=== PATIENT | female | born 1940 | race Caucasian/White ===

== ENCOUNTER 2020-01-29 10:16 | Emergency (ER) | payer MEDICARE, BC, SELFPAY ==
--- NOTE | 2020-01-29 10:32 | ED.FEMALEGU ---
HPI - Female Genitourinary General Chief complaint: Urogenital-Female Stated complaint: pos uti Time Seen by Provider: 01/29/20 11:03 Source: patient and RN notes reviewed Mode of arrival: ambulatory Limitations: no limitations History of Present Illness HPI Narrative: 79-year-old female who presents to [facility] with complaints of frequency of urination with dribbling and burning. Patient states she first noted symptoms on Saturday has not taken anything [id number]. Patient states that she usually gets a couple of URI infections yearly and has had bladder sling surgery in 2009. Patient denies any nausea or vomiting or any fevers, chills or sweats, denies any acute abdominal discomfort. Patient does admit to pressure feeling in perineum with urination, rates pain 2/10 as ache. MD elicited complaint: dysuria, UTI and other (perineum pressure) Pertinent past history: other (usually a couple UTI's yearly) Onset (ago): day(s) (2) Location of symptoms: perineum (pressure/ache) Severity: mild Female Urogenital Radiation: Non-Radiating Severity scale (1-10): 2 (ache) Quality of pain: burning and aching Consistency: constant Vaginal discharge: none Vaginal bleeding: none Urinary symptoms: Dysuria, Urgency and Frequency Exacerbating factors: urination Relieving factors: none Associated symptoms: denies other symptoms Treatment prior to arrival: none Possible : postmenopausal Related Data Allergies Allergy/AdvReac Type Severity Reaction Status Date / Time codeine Allergy Unknown Nausea and Verified 01/29/20 10:36 Vomiting Review of Systems Review of Systems: Narrative: CONSTITUTIONAL: Denies fever, chills, or sweats. EYES: Denies visual changes, redness, or discharge. ENT: Denies rhinorrhea, congestion, sore throat, or otalgia. CARDIOVASCULAR: Denies chest pain, palpitations, or edema. RESPIRATORY: Denies cough or dyspnea. GASTROINTESTINAL: Denies abdominal pain, nausea, vomiting, or diarrhea. GENITOURINARY: Positive dysuria denies any visual hematuria, reports perineal pressure and urinary frequency SKIN: Denies rash or itching. MUSCULOSKELETAL: Denies back pain, joint pain, or myalgia. NEUROLOGIC: Denies headache, numbness, or weakness. PSYCHIATRIC: Denies anxiety or depression. All systems reviewed & are unremarkable except as noted in HPI and below PMFSH Past Medical History Medical History (Updated 01/29/20 @ 11:29 by Mae Taveras NP) Arthritis GERD (gastroesophageal reflux disease) Hyperlipidemia Surgical History Surgical History History of knee replacement procedure of right knee History of suburethral sling procedure History of tonsillectomy and adenoidectomy History of tubal ligation Hx of spinal fusion Family History Family History (Updated 01/29/20 @ 11:29 by Mae Taveras NP) Father Heart disease Mother Hypertension Social History Social History Smoking status: Never smoker Second hand tobacco smoke exposure: No Alcohol intake: current Substance use: never Substance use type: does not use Gender identity (if verbalized by the patient): Female Comments At time of signature, agree with nursing past medical, surgical, social and family history. There is no relevant family history pertinent to the presenting complaint Exam Narrative: Exam Narrative: GENERAL: Well-appearing, well-nourished, and in no acute distress. HEAD: Normocephalic, atraumatic. EYES: PERRLA and EOMI. ENT: Nares clear, no rhinorrhea or epistaxis. Mucous membranes moist. NECK: Supple. CHEST: Clear to auscultation. No respiratory distress.SAO2 97% on room air HEART: Regular rate and rhythm. No murmur heard. Normal peripheral pulses. ABDOMEN: Soft, nontender, nondistended, normal active bowel sounds.Reports perineal pressure, burning and frequency of urination EXTREMITIES: Normal ra
[2020-01-29 10:41] VITALS: BP 114/59; PULSE 73; RESP 20; TEMP 36.9; O2SAT 97
== END 2020-01-29 11:26 | disposition home or self-care (01) ==
PROVIDERS: Emergency Provider Registered Nurse; PCP Family Medicine
DX: N39.0 Urinary tract infection, site not specified (principal); M19.90 Unspecified osteoarthritis, unspecified site; K21.9 Gastro-esophageal reflux disease without esophagitis; E78.5 Hyperlipidemia, unspecified; Z96.653 Presence of artificial knee joint, bilateral
CPT/HCPCS: 81003; 87077; 87086; 87088; 87186; 99213; G0463

== ENCOUNTER 2020-04-02 10:08 | Emergency (ER) | payer MEDICARE, BC, SELFPAY ==
--- NOTE | 2020-04-02 10:13 | ED.GENADULT ---
HPI - General Adult General Chief complaint: Urogenital-Female Stated complaint: uti Time Seen by Provider: 04/02/20 10:09 Source: patient Mode of arrival: ambulatory Limitations: no limitations History of Present Illness HPI narrative: 79 y/o female. PMH Includes GERD, HLD. Presents to UC clinic today with acute complaints of urinary frequency, dysuria, and burning when she voids for past 48 hours. She reports history of UTI, and this feels similar to her urinary tract infections historically. No fever, chills. No abdominal pain, flank pain, or N/V. No hematuria. This client is without additional acute c/o upon PE. Related Data Allergies Allergy/AdvReac Type Severity Reaction Status Date / Time codeine Allergy Unknown Nausea and Verified 01/29/20 10:36 Vomiting Review of Systems Review of Systems: Narrative: CONSTITUTIONAL: Denies fever, chills, sweats. EYES: Denies visual changes, redness, discharge. ENT: Denies rhinorrhea, congestion, sore throat, otalgia. CARDIOVASCULAR: Denies chest pain, palpitations, edema. RESPIRATORY: Denies dyspnea, wheezing, cough GASTROINTESTINAL: Denies abdominal pain, nausea, vomiting, diarrhea. GENITOURINARY: Positive Urinary frequency, dysuria. Denies hematuria, abnormal discharge SKIN: Denies rash or itching. MUSCULOSKELETAL: Denies acute back pain, joint pain, or myalgia. NEUROLOGIC: Denies numbness, or focal weakness. PSYCHIATRIC: Denies anxiety or depression. Constitutional: Constitutional: Reports as per [facility] Past Medical History Medical History Arthritis GERD (gastroesophageal reflux disease) Hyperlipidemia Surgical History Surgical History History of knee replacement procedure of right knee History of suburethral sling procedure History of tonsillectomy and adenoidectomy History of tubal ligation Hx of spinal fusion Family History Family History Father Heart disease Mother Hypertension Social History Social History Smoking status: Never smoker Second hand tobacco smoke exposure: No Alcohol intake: current Substance use: never Substance use type: does not use Gender identity (if verbalized by the patient): Female Exam Narrative: Exam Narrative: GENERAL: This is a well-nourished, well-developed patient, in no apparent distress. HEAD: normocephalic, atraumatic. EYES: PERRL. Sclera clear/white. Vision is grossly intact. EARS: External ears normal, auditory canals clear and without drainage, TMs normal without perforation. Hearing grossly intact. NOSE: External nose normal with no obvious nasal discharge, nares without redness, no rhinorrhea. THROAT: Mucous membranes moist, posterior pharynx clear. NECK: Neck supple, non-tender without lymphadenopathy, masses or thyromegaly. CARDIOVASCULAR: Regular rate and rhythm without murmurs, gallops, or rubs. RESPIRATORY: Clear to auscultation. Breath sounds equal bilaterally. No wheezes, rales, or rhonchi. GASTROINTESTINAL: Abdomen soft, non-tender, nondistended. Bowel sounds are active. No hepato-splenomegaly, or palpable masses. No guarding. SKIN: warm, intact with no suspicious lesions or rash, good texture and turgor. NEURO: awake, alert, and oriented to person, place and time. There were no obvious focal neurologic abnormalities. Steady gait EXTREMITIES: Normal range of motion. No edema. No calf tenderness. Negative Homans sign bilaterally. BACK: Nontender without deformity or crepitance. No flank tenderness. [place] Coma Scale Eye Opening: Spontaneous 4 [place] Coma Scale Motor: Obeys Commands 6 [place] Coma Scale Verbal: Oriented 5 Const: General: no acute distress Orientation/consciousness: patient oriented x3 Course Course Emergency Course: Urine Dipstick for scott
[2020-04-02 10:18] VITALS: BP 124/93; PULSE 77; RESP 20; TEMP 36.4; O2SAT 99
== END 2020-04-02 10:31 | disposition home or self-care (01) ==
PROVIDERS: Emergency Provider Nurse Practitioner Adult Health; PCP Family Medicine
DX: N39.0 Urinary tract infection, site not specified (principal); M19.90 Unspecified osteoarthritis, unspecified site; K21.9 Gastro-esophageal reflux disease without esophagitis; E78.5 Hyperlipidemia, unspecified
CPT/HCPCS: 81003; 87086; 99213; G0463

== ENCOUNTER 2020-07-06 14:02 | Outpatient (CLI) | payer MEDICARE, BC, SELFPAY ==
--- NOTE | ~2020-07-06 | MM_ITS ---
EXAMINATION: MM screening fam BI w zuleima HISTORY: Screening TECHNIQUE: Craniocaudal and mediolateral oblique 3-D tomosynthesis images were obtained and synthetic 2-D images were generated. CAD analysis was submitted and interpreted. COMPARISON: Comparison to multiple prior studies sequentially, with oldest reviewed study dated 08/2010. BREAST PARENCHYMAL COMPOSITION: There are scattered areas of fibroglandular density. FINDINGS: There is no evidence of suspicious mass, calcification, or architectural distortion to sugg est malignancy in either breast. There has been no suspicious interval change. IMPRESSION: 1. No mammographic evidence of malignancy. 2. Recommend routine screening mammography in one year. BI-RADS Category 1: Negative Reviewed, dictated and finalized at location A. [facility]WRIT[facility]
== END 2020-07-06 14:03 | disposition home or self-care (01) ==
LOC: ANHIMG 14:06
PROVIDERS: PCP Physician Assistant; Visit Provider Physician Assistant
DX: Z12.31 Encounter for screening mammogram for malignant neoplasm of breast (principal)
CPT/HCPCS: 77063; 77067

== ENCOUNTER 2020-07-19 12:56 | Outpatient (CLI) | payer MEDICARE, BC, SELFPAY ==
--- NOTE | ~2020-07-19 | DEXA_ITS ---
Bone Density Report Name: Susan Rhodes Age: 79 Sex: Female Ethnicity: White Date of : 1940 Indication: postmenopausal; Referring Provider: Oneal Lora Study: Bone densitometry was performed. Exam Date: July 19, 2020 Accession number: [id number] Bone Density: Region BMD T-score Z-score Classification AP Spine (L1-L4) 0.928 -1.1 1.5 Osteopenia Femoral Neck (Left) 0.775 -0.7 1.5 Normal Total Hip (Left) 0.830 -0.9 1.0 Normal Total Hip Bilateral Avg 0.814 -1.0 0.8 Osteopenia Femoral Neck (Right) 0.742 -1.0 1.2 Normal Total Hip (Right) 0.798 -1.2 0.7 Osteopenia World Health Organization criteria for BMD impression classify patients as: Normal (T-score at or above -1.0), Osteopenia (T-score between -1.0 and -2.5), or Osteoporosis (T-score at or below -2.5). 10-year Fracture Risk(1): Major Osteoporotic Fracture 11% Hip Fracture 1.9% Reported Risk Factors: [place] (), Neck BMD=0.742, BMI=24.2 (1) FRAX(R) Version 3.08. Fracture probability calculated for an untreated patient. Fracture probability may be lower if the patient has received treatment. Previous Exams: Region Exam Age BMD T-score BMD Change BMD Change Date g/cm2 vs Baseline vs Previous AP Spine(L1-L4) 07/19/2020 79 0.928 -1.1 -0.069(-7.0%)# -0.071(-7.1%)* 01/08/2013 72 0.998 -0.4 0.001(0.1%)# 0.001(0.1%)# 07/13/2010 69 0.997 -0.5 Total Hip(Left) 07/19/2020 79 0.830 -0.9 -0.103(-11.1%) -0.075(-8.3%)* 01/08/2013 72 0.905 -0.3 -0.028(-3.0%)# -0.028(-3.0%)# 07/13/2010 69 0.933 -0.1 Total Hip(Right) 07/19/2020 79 0.798 -1.2 -0.104(-11.5%) -0.069(-8.0%)* 01/08/2013 72 0.867 -0.6 -0.035(-3.9%)# -0.035(-3.9%)# 07/13/2010 69 0.902 -0.3 *Denotes significance at 95% confidence level, LSC for AP Spine = 0.022 g/cm2, LSC for Total Hip = 0.027 g/cm2 Clinical Information Provided by Patient: Patient maximum height was 69 Menopause Age: 48 Drinks caffeinated beverages Onset of menses at age 16 Number of children 2 Impression: The patient has low bone mass, based on the Right Total Hip T-score. The patient has an estimated ten-year risk of hip fracture of 1.9% and an estimated ten-year risk of major fracture of 11%, based on the WHO FRAX algorithm. The BMD for the AP Spine(L1-L4) decreased, changing by -7.1% since the last DXA exam. The BMD for the Total Hip(Left) decreased, changing by -8.3% since the last DXA exam.
== END 2020-07-19 12:57 | disposition home or self-care (01) ==
LOC: ANHIMG 12:57
PROVIDERS: PCP Physician Assistant; Visit Provider Physician Assistant
DX: M81.0 Age-related osteoporosis without current pathological fracture (principal); M85.88 Other specified disorders of bone density and structure, other site; M85.851 Other specified disorders of bone density and structure, right thigh
CPT/HCPCS: 77080

== ENCOUNTER → 2020-08-27 00:14 | Outpatient (CLI) | payer MEDICARE, BC, SELFPAY ==
[2020-08-27 19:13] LABS: SARS-CoV-2 RNA PCR Negative
== END ==
PROVIDERS: PCP Nurse Practitioner Family; Visit Provider Internal Medicine Gastroenterology
DX: Z01.812 Encounter for preprocedural laboratory examination (principal); Z20.822 Contact with and (suspected) exposure to COVID-19
CPT/HCPCS: C9803; U0003; U0005

== ENCOUNTER 2020-08-30 00:08 | Day surgery (SDC) | payer MEDICARE, BC, SELFPAY ==
[2020-08-12 10:51] VITALS: BMI 25.5
[2020-08-30 07:51] VITALS: BP 126/68; PULSE 80; RESP 17; TEMP 36.9; O2SAT 99; BMI 25.7
[2020-08-30] MEDS: LACTATED RINGERS 1,000 ML 150 ML IV CONT (08:01)
--- NOTE | 2020-08-30 08:54 | WPDANESEPPF ---
Anes - Initial Pre Proc Eval Procedure: Operation Date: 08/30/20 09:15 Proposed Procedures p Esophagogastroduodenoscopy - Abdi Denton MD Date/Time: 08/30/20 08:54 Surgeon: Abdi Denton MD Pre Op Diagnosis: GERD Patient Data Age: 79 Gender: F Height: 5 ft 7 in Weight: 74.4 kg Last Vital Signs Temp 98.4 F 08/30/20 07:51 Pulse 80 08/30/20 07:51 Resp 17 08/30/20 07:51 BP 126/68 08/30/20 07:51 Pulse Ox 99 08/30/20 07:51 Allergies Allergy/AdvReac Type Severity Reaction Status Date / Time codeine AdvReac Unknown Nausea and Verified 08/30/20 07:49 Vomiting Home Medications Medication Instructions Recorded Confirmed Type lovastatin 40 mg tablet 40 mg PO QPM #90 tablet 04/19/20 08/30/20 Rx multivitamin with minerals-folic 1 tablet PO DAILY 04/19/20 08/30/20 History acid 0.4 mg tablet zolpidem 5 mg PO . q.h.s. PRN 08/12/20 08/30/20 History pantoprazole 40 mg tablet,delayed 40 mg PO QAM #90 tablet 08/22/20 08/30/20 Rx release polyethylene glycol 3350 [Miralax] 17 g PO DAILY 08/30/20 08/30/20 History Patient hx anesthesia problems: none Family hx anesthesia problems: none PMFSH Past Medical History Medical History (Updated 07/26/20 @ 12:11 by Enriqueta Lazaro NP) Arthritis Constipation GERD (gastroesophageal reflux disease) Hyperlipidemia Osteopenia Surgical History Surgical History History of knee replacement procedure of right knee History of suburethral sling procedure History of tonsillectomy and adenoidectomy History of tubal ligation Hx of spinal fusion Family History Family History (Updated 07/26/20 @ 09:07 by Gustavo Morris CMA) Father Heart disease Hypertension Mother Hypertension Heart disease Grandparent Heart disease Hypertension Grandparent Heart disease Hypertension Sibling Asthma Social History Social History (Updated 07/26/20 @ 09:09 by Gustavo Morris CMA) Smoking status: Never smoker Second hand tobacco smoke exposure: No Alcohol intake: never Substance use: never Substance use type: does not use Living arrangements: with family Gender identity (if verbalized by the patient): Female Spiritual care concerns: No Agree to blood products: Yes Anes - Eval Final PreProcedure Day of Procedure 08/30/20 08:54 Patient weight: normal Heart: regular rate and rhythm Lungs: clear to auscultation Airway: Mallampati scale class II Neurological: alert and oriented Last oral intake: >/= 8 hours ASA classification: II Emergent: no Anesthetic plan: proceed Anesthesia type and monitoring: general GIVS and standard monitoring Informed Consent: The patient's anesthetic plan and its attendant risks and benefits were discussed with the patient/family/POA. Questions were solicited and answers provided to the satisfaction of the patient/family/POA.
--- NOTE | 2020-08-30 09:16 | PM.HPGS ---
History of Present Illness History of Present Illness Consent: Risks, benefits, and alternatives have been discussed and questions answered. Patient agrees to proceed with procedure. Chief complaint: GERD Narrative: Susan Rhodes is a 79 year old female with more GERD symptoms, using pantoprazole 40 mg daily and recently had to add otc Pepcid as needed Review of Systems Constitutional: Constitutional: Denies headache(s) and Denies weakness Eyes: Eyes: Denies blurry vision ENT: Reports Normal hearing present, Denies headache(s) and Denies neck pain Cardiovascular: Cardiovascular: Denies chest pain and Denies dyspnea Respiratory: Respiratory: Denies dyspnea Gastrointestinal: Gastrointestinal: Reports no additional gastrointestinal complaints Genitourinary: Genitourinary: Denies dysuria Musculoskeletal: Musculoskeletal: Denies neck pain Integumentary/Breasts: Skin/Breast: Denies dry skin Neurologic: Reports Normal hearing present, Denies headache(s) and Denies weakness Psychiatric: Psychiatric: Denies anxiety Endocrine: Endocrine: Denies change in body appearance Hematologic/Lymphatic: Hematologic/Lymphatic: Denies easy bleeding Allergic/Immunologic: Allergic/Immunologic: Denies urticaria PMFSH Past Medical History Medical History (Updated 07/26/20 @ 12:11 by Enriqueta Lazaro NP) Arthritis Constipation GERD (gastroesophageal reflux disease) Hyperlipidemia Osteopenia Surgical History Surgical History History of knee replacement procedure of right knee History of suburethral sling procedure History of tonsillectomy and adenoidectomy History of tubal ligation Hx of spinal fusion Family History Family History (Updated 07/26/20 @ 09:07 by Gustavo Morris CMA) Father Heart disease Hypertension Mother Hypertension Heart disease Grandparent Heart disease Hypertension Grandparent Heart disease Hypertension Sibling Asthma Social History Social History (Updated 07/26/20 @ 09:09 by Gustavo Morris CMA) Smoking status: Never smoker Second hand tobacco smoke exposure: No Alcohol intake: never Substance use: never Substance use type: does not use Living arrangements: with family Gender identity (if verbalized by the patient): Female Spiritual care concerns: No Agree to blood products: Yes Meds Home Medications and Allergies Home Medications Medication Instructions Recorded Confirmed Type lovastatin 40 mg tablet 40 mg PO QPM #90 tablet 04/19/20 08/30/20 Rx multivitamin with minerals-folic 1 tablet PO DAILY 04/19/20 08/30/20 History acid 0.4 mg tablet zolpidem 5 mg PO . q.h.s. PRN 08/12/20 08/30/20 History pantoprazole 40 mg tablet,delayed 40 mg PO QAM #90 tablet 08/22/20 08/30/20 Rx release polyethylene glycol 3350 [Miralax] 17 g PO DAILY 08/30/20 08/30/20 History Allergies Allergy/AdvReac Type Severity Reaction Status Date / Time codeine AdvReac Unknown Nausea and Verified 08/30/20 07:49 Vomiting Vital Signs Vital Signs - 24 hr 08/30/20 07:51 Temperature 98.4 F Pulse Rate 80 Respiratory Rate 17 Blood Pressure 126/68 Pulse Oximetry 99 Exam Const: General: comfortable and no acute distress HENMT: General nose exam: Normal nares present Eyes: General: appearance normal, both eyes and all related structures Neck: Neck: no JVD Resp: Auscultation: clear to auscultation bilaterally Cardio: Rate: regular rate Rhythm: regular rhythm GI: Inspection: non-distended GI Palp: Yes Soft to palpation Skin: General skin exam: normal color Neuro: General: gait normal Speech: normal speech Extrem: General: normal to inspection Psych: Mental Status: mental status grossly normal Assessment and Plan Assessment and plan (1) GERD (gastroesophageal reflux disease): Qualifiers: Esophagitis presence: esophagitis presence not specifi
[2020-08-30 09:31] VITALS: BP 121/67; PULSE 70; RESP 18; O2SAT 99
[2020-08-30 09:41] VITALS: BP 129/72; PULSE 66; RESP 18; O2SAT 100
[2020-08-30 09:51] VITALS: BP 128/75; PULSE 64; RESP 18; O2SAT 100
== END 2020-08-30 10:12 | disposition home or self-care (01) ==
PROVIDERS: PCP Nurse Practitioner Family; Visit Provider Internal Medicine Gastroenterology
PROC: 0DJ08ZZ Inspection of Upper Intestinal Tract, Via Natural or Artificial Opening Endoscopic (ICD-10-PCS; CPT 43235; principal; 2020-08-30 09:15)
DX: K21.9 Gastro-esophageal reflux disease without esophagitis (principal); K44.9 Diaphragmatic hernia without obstruction or gangrene; K29.50 Unspecified chronic gastritis without bleeding; E78.5 Hyperlipidemia, unspecified; K59.00 Constipation, unspecified
CPT/HCPCS: 43239; 88305; J2704; J7120

== ENCOUNTER 2021-08-16 00:04 | Day surgery (SDC) | payer MEDICARE, BC, SELFPAY ==
[2021-08-07 14:35] VITALS: BMI 24.4
[2021-08-16 08:46] VITALS: BP 123/71; PULSE 84; RESP 20; TEMP 36.3
[2021-08-16] MEDS: LACTATED RINGERS 1,000 ML 150 ML IV CONT (08:58)
--- NOTE | 2021-08-16 09:01 | WPDANESEPPF ---
Anes - Initial Pre Proc Eval Procedure: Operation Date: 08/16/21 10:00 Proposed Procedures p Screening Colonoscopy - Abdi Denton MD Date/Time: 08/16/21 09:01 Surgeon: Abdi Denton MD Pre Op Diagnosis: neoplasm screening Patient Data Age: 80 Gender: F Height: 1.75 m Weight: 71.7 kg Last Vital Signs Temp 36.3 C L 08/16/21 08:46 Pulse 84 08/16/21 08:46 Resp 20 08/16/21 08:46 BP 123/71 08/16/21 08:46 Allergies Allergy/AdvReac Type Severity Reaction Status Date / Time codeine AdvReac Unknown Nausea and Verified 08/16/21 08:44 Vomiting Home Medications Medication Instructions Recorded Confirmed Type multivitamin with minerals-folic 1 tablet PO DAILY 04/19/20 08/07/21 History acid 0.4 mg tablet polyethylene glycol 3350 [Miralax] 17 g PO DAILY 08/30/20 08/07/21 History cholecalciferol (vitamin D3) 1 tab-cap PO DAILY 01/24/21 08/07/21 History zolpidem 10 mg tablet 5 mg PO . q.h.s. PRN #30 tablet 01/24/21 08/07/21 Rx lovastatin 40 mg tablet 40 mg PO QPM #90 tablet 02/24/21 08/07/21 Rx pantoprazole 40 mg tablet,delayed 40 mg PO QAM #90 tablet 07/17/21 08/07/21 Rx release Patient hx anesthesia problems: none Family hx anesthesia problems: none Results Review: All pre-operative results and documents have been reviewed as part of the pre-operative evaluation. [facility] Past Medical History Medical History (Updated 07/05/21 @ 09:29 by Enriqueta Lazaro NP) Adult BMI 27.0-27.9 kg/sq m Arthritis BMI 26.0-26.9,adult Colon cancer screening Constipation GERD (gastroesophageal reflux disease) Hematuria Hyperlipidemia Osteopenia Wellness examination Surgical History Surgical History History of knee replacement procedure of right knee History of suburethral sling procedure History of tonsillectomy and adenoidectomy History of tubal ligation Hx of spinal fusion Family History Family History Father Heart disease Hypertension Mother Hypertension Heart disease Grandparent Heart disease Hypertension Grandparent Heart disease Hypertension Sibling Asthma Social History Social History Smoking status: Never smoker Second hand tobacco smoke exposure: No Alcohol intake: current Alcohol use details: very rarely Substance use: never Substance use type: does not use Living arrangements: with family Gender identity (if verbalized by the patient): Female Spiritual care concerns: No Agree to blood products: Yes Anes - Eval Final PreProcedure Day of Procedure 08/16/21 09:01 Patient weight: overweight Heart: regular rate and rhythm Lungs: clear to auscultation and normal air movement Airway: Mallampati scale class II Neurological: alert and oriented Last oral intake: >/= 8 hours ASA classification: II Emergent: no Anesthetic plan: proceed Anesthesia type and monitoring: general GIVS Results Review: All pre-operative results and documents have been reviewed as part of the pre-operative evaluation. Informed Consent: The patient's anesthetic plan and its attendant risks and benefits were discussed with the patient/family/POA. Questions were solicited and answers provided to the satisfaction of the patient/family/POA.
--- NOTE | 2021-08-16 10:16 | PM.HPGS ---
History of Present Illness History of Present Illness Consent: Risks, benefits, and alternatives have been discussed and questions answered. Patient agrees to proceed with procedure. Chief complaint: neoplasm screening Narrative: Susan Rhodes is a 80 year old female here for screening colonoscopy, last one about 10 years ago. Review of Systems Constitutional: Constitutional: Denies headache(s) and Denies weakness Eyes: Eyes: Denies blurry vision ENT: Reports Normal hearing present, Denies headache(s) and Denies neck pain Cardiovascular: Cardiovascular: Denies chest pain and Denies dyspnea Respiratory: Respiratory: Denies dyspnea Gastrointestinal: Gastrointestinal: Reports no additional gastrointestinal complaints Genitourinary: Genitourinary: Denies dysuria Musculoskeletal: Musculoskeletal: Denies neck pain Integumentary/Breasts: Skin/Breast: Denies dry skin Neurologic: Reports Normal hearing present, Denies headache(s) and Denies weakness Psychiatric: Psychiatric: Denies anxiety Endocrine: Endocrine: Denies change in body appearance Hematologic/Lymphatic: Hematologic/Lymphatic: Denies easy bleeding Allergic/Immunologic: Allergic/Immunologic: Denies urticaria PMF Past Medical History Medical History (Updated 07/05/21 @ 09:29 by Enriqueta Lazaro NP) Adult BMI 27.0-27.9 kg/sq m Arthritis BMI 26.0-26.9,adult Colon cancer screening Constipation GERD (gastroesophageal reflux disease) Hematuria Hyperlipidemia Osteopenia Wellness examination Surgical History Surgical History History of knee replacement procedure of right knee History of suburethral sling procedure History of tonsillectomy and adenoidectomy History of tubal ligation Hx of spinal fusion Family History Family History Father Heart disease Hypertension Mother Hypertension Heart disease Grandparent Heart disease Hypertension Grandparent Heart disease Hypertension Sibling Asthma Social History Social History Smoking status: Never smoker Second hand tobacco smoke exposure: No Alcohol intake: current Alcohol use details: very rarely Substance use: never Substance use type: does not use Living arrangements: with family Gender identity (if verbalized by the patient): Female Spiritual care concerns: No Agree to blood products: Yes Meds Home Medications and Allergies Home Medications Medication Instructions Recorded Confirmed Type multivitamin with minerals-folic 1 tablet PO DAILY 04/19/20 08/07/21 History acid 0.4 mg tablet polyethylene glycol 3350 [Miralax] 17 g PO DAILY 08/30/20 08/07/21 History cholecalciferol (vitamin D3) 1 tab-cap PO DAILY 01/24/21 08/07/21 History zolpidem 10 mg tablet 5 mg PO . q.h.s. PRN #30 tablet 01/24/21 08/07/21 Rx lovastatin 40 mg tablet 40 mg PO QPM #90 tablet 02/24/21 08/07/21 Rx pantoprazole 40 mg tablet,delayed 40 mg PO QAM #90 tablet 07/17/21 08/07/21 Rx release Allergies Allergy/AdvReac Type Severity Reaction Status Date / Time codeine AdvReac Unknown Nausea and Verified 08/16/21 08:44 Vomiting Vital Signs Vital Signs - 24 hr 08/16/21 08:46 Temperature 97.3 F L Pulse Rate 84 Respiratory Rate 20 Blood Pressure 123/71 Exam Const: General: comfortable and no acute distress HENMT: General nose exam: Normal nares present Eyes: General: appearance normal, both eyes and all related structures Neck: Neck: no JVD Resp: Auscultation: clear to auscultation bilaterally Cardio: Rate: regular rate Rhythm: regular rhythm GI: Inspection: non-distended GI Palp: Yes Soft to palpation Skin: General skin exam: normal color Neuro: General: gait normal Speech: normal speech Extrem: General: normal to inspection Psych: Mental Status: me
[2021-08-16 10:41] VITALS: BP 106/56; PULSE 82; RESP 21; O2SAT 100
[2021-08-16 10:51] VITALS: BP 120/71; PULSE 72; RESP 17; O2SAT 100
== END 2021-08-16 11:10 | disposition home or self-care (01) ==
PROVIDERS: PCP Nurse Practitioner Family; Visit Provider Internal Medicine Gastroenterology
PROC: 0DJD8ZZ Inspection of Lower Intestinal Tract, Via Natural or Artificial Opening Endoscopic (ICD-10-PCS; CPT 45378; principal; 2021-08-16 10:00)
DX: Z12.11 Encounter for screening for malignant neoplasm of colon (principal); K64.8 Other hemorrhoids; K21.9 Gastro-esophageal reflux disease without esophagitis; K59.00 Constipation, unspecified; E78.5 Hyperlipidemia, unspecified; M85.80 Other specified disorders of bone density and structure, unspecified site; Z98.1 Arthrodesis status
CPT/HCPCS: G0121; J2704; J7120

== ENCOUNTER 2022-07-23 07:39 | Outpatient (CLI) | payer MEDICARE, BC, SELFPAY ==
--- NOTE | ~2022-07-23 | DEXA_ITS ---
Bone Density Report Name: PERLA CASTANON Age: 81 Sex: Female Ethnicity: White Date of : 1940 Indication: postmenopausal; screening for osteoporosis; Referring Provider: ROXANNE ESTEVEZ Study: Bone densitometry was performed. Exam Date: July 23, 2022 Accession number: [id number] Bone Density: Region BMD T-score Z-score Classification AP Spine(L1-L4) 0.936 -1.0 1.7 Normal Femoral Neck (Left) 0.831 -0.2 2.1 Normal Total Hip (Left) 0.846 -0.8 1.3 Normal Femoral Neck (Right) 0.774 -0.7 1.6 Normal Total Hip (Right) 0.830 -0.9 1.1 Normal Total Hip Mean 0.838 -0.9 1.2 Normal World Health Organization criteria for BMD impression classify patients as: Normal (T-score at or above -1.0), Osteopenia (T-score between -1.0 and -2.5), or Osteoporosis (T-score at or below -2.5). 10-year Fracture Risk: FRAX not reported because: All T-scores for Spine Total, Hip Total, Femoral Neck at or above -1.0 Clinical Information Provided by Patient: Has used the following medications: Vitamin D, Calcium Patient maximum height was 67 Menopause Age: 48 Drinks caffeinated beverages Onset of menses at age 15 Number of children 2 Impression: The patient has normal bone mass. Discussion: BONE DENSITY IS ABOVE THE MINIMUM DESIRABLE LEVEL AT ALL SKELETAL SITES TESTED. This patient?s bone mineral density is above the minimum desirable level (T-score -1.0 or better) at all sites measured. The patient should follow a healthful lifestyle (good nutrition with adequate calcium and vitamin D, and appropriate weight-bearing exercise). Follow-Up: Consider repeating this study in 5 years or sooner if there is some new clinical indication. Reported by: ERICK on 07/23/2022 8:03:00 AM. Reviewed, dictated and finalized at location [facility]
== END 2022-07-23 07:40 | disposition home or self-care (01) ==
LOC: ANHIMG 07:40
PROVIDERS: PCP Nurse Practitioner Family; Visit Provider Nurse Practitioner Family
DX: M85.80 Other specified disorders of bone density and structure, unspecified site (principal); Z78.0 Asymptomatic menopausal state
CPT/HCPCS: 77080

== ENCOUNTER 2023-03-04 15:20 | Outpatient (CLI) | payer MEDICARE, BC, SELFPAY ==
[2023-03-04 16:19] LABS: Appearance Urine Cloudy (Clear); Bacteria Urine 4+ /hpf; Bilirubin Urine Negative (Negative); Blood Urine Trace (Negative); Color Urine Yellow (Yellow); Glucose Urine UA Negative (Negative); Ketones Urine Negative (Negative); Leukocyte Esterase Ur 3+ LEU/UL (Negative); Nitrate Urine Negative (Negative); Non Pathogenic Casts 0-2; Protein Urine Negative (Negative); RBC Urine 0-2 /hpf (0-2); Specific Grav Ur 1.006 (1.001-1.035); Squamous Epithelial Cell Urine None seen /hpf (Few); Urobilinogen Urine 0.2 mg/dL (<2.0); WBC Urine >100 /hpf
[2023-03-04 16:23] LABS: Add Urine Microscopic? YES
== END 2023-03-04 15:21 | disposition home or self-care (01) ==
PROVIDERS: PCP Nurse Practitioner Family; Visit Provider Nurse Practitioner Family
DX: R30.0 Dysuria (principal)
CPT/HCPCS: 81001; 87077; 87086; 87186

== ENCOUNTER 2023-11-29 08:46 | Outpatient (CLI) | payer MEDICARE, BC, SELFPAY | END 2023-11-29 08:47 | disposition home or self-care (01) | LOC: ANHAUDIO 08:46 | PROVIDERS: PCP Nurse Practitioner Family; Visit Provider Family Medicine | DX: H90.3 Sensorineural hearing loss, bilateral (principal) | CPT/HCPCS: 92557; 92567 ==

== ENCOUNTER 2024-03-26 08:00 | Outpatient (RCR) | payer MEDICARE, BC, SELFPAY | END 2024-03-26 23:59 | disposition home or self-care (01) | LOC: ANHAUDIO 08:00 | PROVIDERS: PCP Nurse Practitioner Family; Visit Provider Family Medicine | DX: Z46.1 Encounter for fitting and adjustment of hearing aid (principal) | CPT/HCPCS: 99199; V5261 ==

== ENCOUNTER 2024-07-31 14:59 | Inpatient (IN) | payer MEDICARE, BC, SELFPAY ==
--- NOTE | ~2024-07-31 | XR_ITS ---
EXAMINATION: XR chest 1V DATE: 07/31/2024 15:51 INDICATION: Chest injury. TECHNIQUE: A single frontal view of the chest was obtained. COMPARISON: Chest 2 views 09/23/2015, chest CT 09/26/2015 FINDINGS: Donna B-lines are noted, consistent mild pulmonary edema. A calcified left lung nodule and calcified left hilar lymph nodes are consistent with old granulomatous disease. No pleural effusion or pneumothorax. The heart size is normal. IMPRESSION: 1. Mild pulmonary edema. Reviewed, dictated and finalized at location A. ROL PANEL ASSEMBLER IMPRESSION: 1. Mild pulmonary edema.
--- NOTE | ~2024-07-31 | XR_ITS ---
EXAMINATION: XR surgery orthopedic DATE: 08/01/2024 09:17 INDICATION: Right intratrochanteric fracture TECHNIQUE: 5 fluoroscopic images of the right hip were obtained during procedure performed by . Radiologist was not present for the imaging or procedure. The amount of fluoroscopy time used during this procedure was 2.0 minutes. Total DAP was 8.559 Gycm^2 COMPARISON: 07/31/2024 FINDINGS: Interval reduction and internal fixation of a comminuted intratrochanteric fracture of the proximal r ight femur. The fracture is fixed with an antegrade intramedullary angella which is incompletely visualiz ed and a femoral neck dynamic compression screw. The main proximal and distal fragments are now in ne ar-anatomic alignment with reduction of the prior varus angulation. No change in mild distraction of the lesser trochanteric fragment which is not included within the fixation. No new fractures identifi ed. Right hip joint space is normal. There is some lucent soft tissue gas at the operative bed. IMPRESSION: 1. Fluoroscopy utilized during reduction and internal fixation of a comminuted intratrochanteric frac ture of the proximal right femur with expected appearance post fixation. See procedure note for furth er detail. Reviewed, dictated and finalized at location A. TO BUCKER IMPRESSION: 1. Fluoroscopy utilized during reduction and internal fixation of a comminuted intratrochanteric fracture of the proximal right femur with expected appearance post fixation. See procedure note for further detail.
--- NOTE | ~2024-07-31 | XR_ITS ---
EXAMINATION: XR hip RT 2V w AP pelvis DATE: 07/31/2024 15:51 INDICATION: Right hip injury. TECHNIQUE: An anteroposterior view of the pelvis and 2 views of right hip were obtained. COMPARISON: None. FINDINGS: There is a comminuted intertrochanteric fracture of proximal right femur. The main distal f racture fragment demonstrates 15 degrees varus angulation, 1 cortical width anterior displacement, an d 40 degrees posterior angulation. There is mild osteoarthritis of the hips. There is lumbar levocurv ature and mild spondylosis. IMPRESSION: 1. Comminuted intertrochanteric fracture of proximal right femur. 2. Mild osteoarthritis of the hips. Reviewed, dictated and finalized at location A. NT ARCHITECT
[2024-07-31 15:04] VITALS: BP 159/77; PULSE 76; RESP 15; TEMP 36.4; O2SAT 100
[2024-07-31] MEDS: MORPHINE SULFATE (*CRX) 2 MG/ML INJ IV PUSH ×2 (15:27→20:14)
[2024-07-31 15:38] LABS: Basophils Absolute Auto 0.1 K/mm3 (0.0-0.1); Basophils Percent Auto 0.8 % (0.2-1.2); Eosinophils Absolute Auto 0.1 K/mm3 (0-0.3); Eosinophils Percent Auto 1.7 % (0-4.4); Hematocrit 38.9 % (37.0-47.0); Hemoglobin 12.8 g/dL (12.0-15.0); Immature Granulocyte Absolute 0.01 K/mm3 (0.00-0.031); Immature Granulocyte Percent A 0.1 % (0-0.5); Lymphocytes Absolute Auto 2.67 K/mm3 (0.9-3.2); Lymphocytes Percent Auto 37.6 % (18.3-44.2); Mean Corpuscular HGB Conc 32.9 g/dl (32-36); Mean Corpuscular Hemoglobin 31.5 pg (26-34); Mean Corpuscular Volume 95.8 fl (80-100); Monocytes Absolute Auto 0.5 K/mm3 (0.1-0.6); Monocytes Percent Auto 6.9 % (2.6-8.5); Neutrophils Absolute Auto 3.8 K/mm3 (1.3-6.7); Neutrophils Percent Auto 52.9 % (45.5-73.1); Platelet Count Result 198 k/mm3 (150-375); Red Blood Count 4.06 M/mm3 (4.2-5.4); Red Cell Distribution Width 13.1 % (11.5-14.5); White Blood Count 7.1 K/mm3 (4.5-10.0)
[2024-07-31 15:55] LABS: Prothrombin Time 13.1 Seconds (11.1-14.7)
[2024-07-31 15:56] LABS: Partial Thromboplastin Time 28.3 Seconds (22.3-36.8)
--- OUTSIDE RECORDS SUMMARY | 2024-07-31 15:56 | XMS_ITS | Patient Health Summary ---
Author Organization [facility] Address [address] [place] [address] Care Team Providers Care International Operations Manager Name Role Phone Tony Rich MD Primary Care Provider [phone] Note from [facility],non-owned Affiliates and Associated Physician Practices is amultiple site organization consisting of ambulatory clinics and hospital sitesin [place], [place], [place] and [place]. This disclosure is being madepursuant to the Care Everywhere program and may not contain all information available regarding this patient. Last updated 18.[facility] Allergies * Codeine(Nausea and vomiting) Medications * Be aware that medications may not be up to date on this document. Alwaysverify current medications with the patient. * lovastatin (MEVACOR) 40 MG tablet Take 40 mg by mouth at bedtime. * docusate sodium (COLACE) 100 MG capsule(Started 01/25/2010) Take 1 Cap by mouth 2 times daily. 5 refills left * ibuprofen (MOTRIN) 600 MG tablet(Started 01/25/2010) Take 1 Tab by mouth every 6 hours as needed for Pain. * propoxyphene napsylate-acetaminophen (DARVOCET N-100) 100-650 MG tablet (Started 01/25/2010) Take 1 Tab by mouth every 4 hours as needed for Pain. Social History Tobacco Use Types Packs/Day Years Used Date Smoking Tobacco: Never Sex and Gender Information Value Date Recorded Sex Assigned at Not on file Gender Identity Not on file Sexual Orientation Not on file Last Filed Vital Signs Vital Sign Reading Time Taken Comments Blood Pressure 132/80 01/25/2010 3:15 PM CDT Pulse 88 01/25/2010 3:15 PM CDT Temperature 36.7 C (98 F) 01/25/2010 3:15 PM CDT Respiratory Rate 16 01/25/2010 3:15 PM CDT Oxygen Saturation 97% 01/25/2010 3:15 PM CDT Inhaled Oxygen Concentration - - Weight 81.6 kg (180 lb) 01/25/2010 10:45 AM CDT Height 172.7 cm (5' 8 ) 01/25/2010 10:45 AM CDT Body Mass Index 27.37 01/25/2010 10:45 AM CDT Procedures * LAB RESULTS ORDER(Performed 02/01/2010) * CARDIAC RHYTHM STRIP ORDER(Performed 02/01/2010) * LAB HISTORICAL RESULTS-ONBASE(Performed 01/31/2010) * GROSS + MICRO EXAM(Performed 01/25/2010) * GROSS + MICRO EXAM(Performed 01/25/2010) * LAB HISTORICAL RESULTS-ONBASE(Performed 12/26/2009) * CULTURE URINE(Performed 12/13/2009) * URINALYSIS - POINT OF CARE (AMB) [facility](Performed 12/13/2009) * URINALYSIS - POINT OF CARE (AMB) [facility](Performed 06/10/1998) Results * LAB RESULTS ORDER (02/01/2010 7:50 PM CDT) Narrative Procedure Note Document, Scanned - 02/01/2010 11:03 AM CDT Scanned Document LAB - THERAPEUTIC DR MAR MONITORING ORDERABLES * CARDIAC RHYTHM STRIP ORDER (02/01/2010 7:50 PM CDT) Narrative Procedure Note Document, Scanned - 02/01/2010 11:03 AM CDT Scanned Document CARDIAC SERVICES ORD ERABLES * LAB HISTORICAL RESULTS-ONBASE (01/31/2010) Only the most recent of2 resultswithin the time period is included. 01/31/2010 Ray Washburn MD LAB - CHEMISTRY [facility] * GROSS + MICRO EXAM (01/25/2010 12:00 AM CDT) Only the most recent of2 resultswithin the time period is included. Result CASE NUMBER [id number] Comment: ORDERING PHYSICIAN RAY WASHBURN SPECIMEN TYPE Vulva Biopsy Date 01/25/2010 Physician Solomon Washburn Gross Description The specimen is received in Formalin labeled with the patient's name, Susan Rhodes, and vulvar biopsy. It consists of an oval shaped fragment of pink francis translucent tissue measuring approximately 0.6 x 0.4 x 0.2 cm. There is a small irregular nodule measuring approximately 0.2 cm in the largest dimension at one edge of the specimen. The specimen's deep margin is inked black. The specimen is bisected and submitted entirely in a single cassette. LS jacobo Microscopic Exam Microsections reveal vulvar tissue surfaced by squamous mucosa that shows atrophic change and hyperkeratosis. The underlying connective tissue shows hyalinization and a somewhat band-like infiltrate of chronic inflammatory cells. There is no evidence of atypia or malignancy. GM/na Diagnosis I. 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 01/26/2010 1005 <1> CPT code 20122 MISCELLANEOUS SAMPLE S / Unknown 01/25/2010 01/25/2010 12:50 PM CDT Historical Provider LAB - PATHOLOGY/C YTOLOGY ORDERABLES * CULTURE URINE (12/13/2009 11:21 AM CDT) Urine Culture Routine SEE NOTE [facility]) Comment: CULTURE, URINE, ROUTINE MICRO NUMBER: [id number] TEST STATUS: FINAL SPECIMEN SOURCE: CATH URINE SPECIMEN QUALITY: ADEQUATE RESULT: NO GROWTH Test Performed at: [facility] [address] [id number] LUCILLE PIRES DO 12/13/2009 11:2 1 AM CDT 12/14/2009 1:12 AM CDT Ray Washburn MD LAB - MICROBIOLOGY O RDERABLES [facility]) * URINALYSIS - POINT OF CARE (AMB) [facility] (12/13/2009) Only the most recent of2 resultswithin the time period is included. Glucose UA N [facility] Bilirubin UA POCT N [facility] Ketones UA POCT N [facility] Specific [place] UA 1.020 [facility] Blood Urine POCT N [facility] pH UA 5 [facility] Protein UA N [facility] Urobilinogen UA N [facility] Nitrite UA N [facility] WBC UA N [facility] Urine specimen (specimen) 12/13/2009 Ray Washburn MD LAB - POINT OF CARE ORDERABLES [facility] Care Teams International Operations Manager Relationship Specialty Start Date End Date Tony Rich MD [address] [place] [address] PCP - General 01/25/10
--- OUTSIDE RECORDS SUMMARY | 2024-07-31 15:56 | XMS_ITS | Clinical Summary ---
Author Organization [facility] Address [address] [place] [address] Care Team Providers Care Client Delivery Manager Name Role Phone Tony Rich MD Primary Care Provider [phone] Allergies Active Allergy Reactions Criticality Noted Date Comments Codeine Unknown 11/08/2011 Medications lovastatin (MEVACOR) 40 mg Oral tablet Take 40 mg by mouth daily. 5 Active zolpidem (AMBIEN) 5 mg Oral tablet Take 5 mg by mouth daily. PRn . 2 Active ASPIRIN/ACETAM INOPHEN/CAFFEI NE (EXCEDRIN MIGRAINE ORAL) Take by mouth. Prn Active dihydroergotam ine-caffeine 10-30 mg oral capsule compoundIndica tions:Position al headache Take 1 Cap by mouth see administration instructions. 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 Gender Identity Not on file Sexual Orientation Not on file Last Filed Vital Signs Vital Sign Reading Time Taken Comments Blood Pressure 120/72 12/27/2011 1:02 PM CDT Pulse 80 12/27/2011 1:02 PM CDT Temperature - - Respiratory Rate - - Oxygen Saturation - - Inhaled Oxygen Concentration - - Weight 84.8 kg (187 lb) 01/09/2012 7:43 AM CDT Height 175.3 cm (5' 9 ) 12/27/2011 1:02 PM CDT Body Mass Index 27.62 12/27/2011 1:02 PM CDT Plan of Treatment Health Maintenance Due Date Last Done Comments DTAP/TDAP/TD VACCINES (1 - Tdap) 1959 PNEUMOCOCCAL VACCINE 65+ YEARS (1 of 1 - PCV) 11/10/18 93 ZOSTER VACCINE (1 of 2) 1992 OSTEOPOROSIS SCREENING 11/11/2007 RSV VACCINE (60+ or ) (1 - 1-dose 75+ series) 2017 INFLUENZA VACCINE (#1) 2024 Insurance MEDICARE PART A AND B [employer] OPEN ACCESS Advance Directives For more information, please contact: [phone] * Full Code (Latest Code Status on File) Date Activated Date Inactivated Comments 01/09/2012 9:26 AM 01/10/2012 2:12 AM Care Teams Client Delivery Manager Relationship Specialty Start Date End Date Tony Rich MD [address] [place] [address] PCP - General Family Practice 12/27/11
--- OUTSIDE RECORDS SUMMARY | 2024-07-31 15:56 | XMS_ITS | Clinical Summary ---
Author Organization [facility] [employer] Address [address] [place] [address] Care Team Providers Care International Operations Manager Name Role Phone Tony Rich MD Primary Care Provider [phone] Source Comments [facility] [employer],non-owned Affiliates and Associated Physician Practices is amultiple site organization consisting of ambulatory clinics and hospital sitesin [place], [place], [place] and [place]. This disclosure is being madepursuant to the Care Everywhere program and may not contain all information available regarding this patient. Last updated 18.[facility] [employer] Allergies Active Allergy Reactions Criticality Noted Date Comments Codeine 01/25/2010 Nausea and vomiting Medications * Be aware that medications may not be up to date on this document. Alwaysverify current medications with the patient. Medication Sig Dispensed Refills Start Date End Date Status lovastatin (MEVACOR) 40 MG tablet Take 40 mg by mouth at bedtime. Active docusate sodium (COLACE) 100 MG capsule Take 1 Cap by mouth 2 times daily. 60 Cap 5 01/25/2010 Active ibuprofen (MOTRIN) 600 MG tablet Take 1 Tab by mouth every 6 hours as needed for Pain. 60 Tab 0 01/25/2010 Active propoxyphene napsylate-acetaminophe n (DARVOCET N-100) 100-650 MG tablet Take 1 Tab by mouth every 4 hours as needed for Pain. 40 Tab 0 01/25/2010 Active Social History Tobacco Use Types Packs/Day Years [...] Mass Index 27.37 01/25/2010 10:45 AM CDT Plan of Treatment Health Maintenance Due Date Last Done Comments BONE DENSITY TESTING 1940 MEDICARE AWV 12 MONTHS 1940 DTAP/TDAP/TD VACCINES (1 - Tdap) 1961 PNEUMOCOCCAL VACCINE 50+ (1 of 1 - PCV) 1992 ZOSTER VACCINE (1 of 2) 1992 Respiratory Syncytial Virus (RSV) Vaccine Pt: or over 60 yrs (1 - 1-dose 75+ series) 2017 COVID-19 VACCINE ( - 2023-2 5 season) 2024 INFLUENZA VACCINE (#1) 2024 DEPRESSION SCREENING 06/10/2024 HEPATITIS B VACCINE Aged Out No longe r eligible based on patient's age to complete this topic HIB VACCINE Aged Out No longer eligi ble based on patient's age to complete this topic HPV VACCINE Aged Out No longer eligi ble based on patient's age to complete this topic MENINGOCOCCAL (Group B) VACCINE Aged Out No longer eligible based on patient's age to complete this topic MENINGOCOCCAL VACCINE Aged Out No neo ching eligible based on patient's age to complete this topic Care Teams International Operations Manager Relationship Specialty Start Date End Date Tony Rich MD [address] [place] [id number] PCP - General 01/25/10
--- OUTSIDE RECORDS SUMMARY | 2024-07-31 15:56 | XMS_ITS | Referral Summary ---
Author Organization [facility] Address [address] [place] [address] Care Team Providers Care Game Manager Name Role Phone Tony Rich MD Primary Care Provider [phone] Source Comments [facility],non-owned Affiliates and Associated Physician Practices is amultiple site organization consisting of ambulatory clinics and hospital sitesin [place], [place], [place] and [place]. This disclosure is being madepursuant to the Care Everywhere program and may not contain all information available regarding this patient. Last updated 18.[facility] Allergies Active Allergy Reactions Criticality Noted Date [...] 01/25/2010 10:45 AM CDT Plan of Treatment Not on file Care Teams Game Manager Relationship Specialty Start Date End Date Tony Rich MD [address] [place] [address] PCP - General 01/25/10
[2024-07-31 16:00] VITALS: BP 154/67; PULSE 67; RESP 15; O2SAT 100
[2024-07-31 16:09] LABS: Alanine Aminotransferase 20 U/L (6-35); Alkaline Phosphatase 55 U/L (38-126); Anion Gap 9 mmol/L (4-12); Aspartate Amino Transferase 30 U/L (14-36); Bilirubin,Total 0.5 mg/dL (0.2-1.3); Blood Urea Nitrogen 28 mg/dL (7-17); Calcium 9.8 mg/dL (8.4-10.2); Carbon Dioxide 28 mmol/L (22-30); Chloride 105 mmol/L (98-107); Estimated CRCL calculation 51 ml/min; Estimated Glomerular Filt Rate > 60; Glucose 112 mg/dL (65-110); Potassium 3.9 mmol/L (3.4-5.0); Sodium 142 mmol/L (137-145)
--- NOTE | 2024-07-31 16:29 | ED_ITS ---
HPI - General Adult General Chief complaint: Fall Stated complaint: fall Time Seen by Provider: 07/31/24 15:09 History of Present Illness HPI narrative: Patient is an 83-year-old female who presents ER after a fall. She was bringing in her trash bin when she slipped on ice swelling on her right hip. No head injury. No numbness or tingling. Sudden onset pain. Related Data Home Medications ?Medication ?Instructions ?Recorded ?Confirmed ?Last Taken ?Type multivitamin with minerals-folic 1 tablet PO DAILY 04/19/20 07/30/24 Unknown History acid 0.4 mg tablet (One Daily Womens 50 Plus) polyethylene glycol 3350 17 gram 17 g PO DAILY 08/30/20 07/30/24 Unknown History oral powder packet (Miralax) cholecalciferol (vitamin D3) 125 125 mcg PO DAILY 07/22/23 07/30/24 Unknown History mcg (5,000 unit) capsule famotidine-Ca carb-mag hydrox 10 1 tablet PO DAILY PRN 07/30/24 07/30/24 Unknown History mg-800 mg-165 mg chewable tablet (Pepcid Complete) Allergies Allergy/AdvReac Type Severity Reaction Status Date / Time codeine AdvReac Unknown Nausea and Verified 07/31/24 15:14 Vomiting Review of Systems 2 Review of Systems: All systems reviewed & are unremarkable except as noted in HPI and below Constitutional: Constitutional: Reports no additional constitutional complaints ENT: Reports system reviewed and no additional complaints, except as documented Cardiovascular: Cardiovascular: Reports no additional cardiovascular complaints Respiratory: Respiratory: Reports no additional respiratory complaints Musculoskeletal: Musculoskeletal: Reports no additional musculoskeletal complaints [facility] Past Medical History Medical History (Updated 07/31/24 @ 18:23 by Serafin Decker MD) BMI 20.0-20.9, adult Paresthesia of both feet Dysuria Vitamin D deficiency BMI 23.0-23.9, adult Post-menopausal Colon cancer screening normal colonoscopy with Dr. Wilder 08/16/2021 with no further colonoscopies needed BMI 26.0-26.9,adult Hematuria Adult BMI 27.0-27.9 kg/sq m Wellness examination Constipation Osteopenia Arthritis Hyperlipidemia GERD (gastroesophageal reflux disease) Surgical History Surgical History History of suburethral sling procedure History of tubal ligation History of tonsillectomy and adenoidectomy Hx of spinal fusion History of knee replacement procedure of right knee Family History Family History Father Heart disease Hypertension Mother Hypertension Heart disease Grandparent Heart disease Hypertension Grandparent Heart disease Hypertension Sibling Asthma Social History Social History Smoking status: Never smoker Second hand tobacco smoke exposure: No Alcohol intake: current Alcohol use details: very rarely Substance use: never Substance use type: does not use Current Housing: Decline to Answer Concerned About Future Housing: Decline to Answer Difficulty Paying Gas/Electric Bills: Decline to Answer Difficulty Paying for Meds: Decline to Answer Currently Unemployed: Decline to Answer Education: Decline to Answer Difficulty w/ Childcare or Family Care: Decline to Answer Living arrangements: with family Occupation/Education: retired Gender identity (if verbalized by the patient): Female Spiritual care concerns: No Agree to blood products: Yes Exam 2 Narrative: GENERAL: Well-appearing, well-nourished, and in no acute distress. HEAD: Normocephalic, atraumatic. ENT: Mucous membranes moist. CHEST: Clear to auscultation. No respiratory distress. HEART: Regular rate and rhythm. Normal peripheral pulses. ABDOMEN: Soft, nontender, nondistended. EXTREMITIES: Right lower extremity was for an external rotation and swelling to the proximal aspect of the femur. Neurovascular intact in the right lower extremity. Other extremities unremarkable. SKIN: Warm, dry, no rash. NEURO: NAlert and oriented x3. PSYCH: Normal mood and affect. Course Course Emergency Course: Patient resting comfortably. Informed results. Admit to hospitalist service. Orthopedic surgery consulted. Vital Signs Vital signs: Vital Signs Temperature 97.5 F L 07/31/24 15:04 Pulse Rate 76 07/31/24 15:04 Respiratory Rate 15 07/31/24 15:04 Blood Pressure 159/77 H 07/31/24 15:04 Pulse Oximetry 100 07/31/24 15:04 Oxygen Delivery Room Air 07/31/24 15:04 Temperature 97.5 F L 07/31/24 15:04 Pulse Rate 68 07/31/24 17:00 Respiratory Rate 16 07/31/24 17:00 Blood Pressure 124/55 L 02/21/25 17:00 Pulse Oximetry 100 07/31/24 17:00 Oxygen Delivery Room Air 07/31/24 15:04 Medical Decision Making Vital Signs Vital Signs: Vital Signs Temperature 97.5 F L 07/31/24 15:04 Pulse Rate 76 07/31/24 15:04 Respiratory Rate 15 07/31/24 15:04 Blood Pressure 159/77 H 07/31/24 15:04 Pulse Oximetry 100 07/31/24 15:04 Oxygen Delivery Room Air 07/31/24 15:04 Temperature 97.5 F L 07/31/24 15:04 Pulse Rate 68 07/31/24 17:00 Respiratory Rate 16 07/31/24 17:00 Blood Pressure 124/55 L 07/31/24 17:00 Pulse Oximetry 100 07/31/24 17:00 Oxygen Delivery Room Air 07/31/24 15:04 Lab Data 07/31/24 15:32 07/31/24 15:32 Labs: Lab Results 07/31/24 Range/Units 15:32 WBC 7.1 (4.5-10.0) K/mm3 RBC 4.06 L (4.2-5.4) M/mm3 Hgb 12.8 (12.0-15.0) g/dL Hct 38.9 (37.0-47.0) % MCV 95.8 (80-100) fl MCH 31.5 (26-34) pg MCHC 32.9 (32-36) g/dl RDW 13.1 (11.5-14.5) % Plt Count 198 (150-375) k/mm3 MPV 11.0 H (7.4-10.4) fl Immature Gran % (Auto) 0.1 (0-0.5) % Neut % (Auto) 52.9 (45.5-73.1) % Lymph % (Auto) 37.6 (18.3-44.2) % [place] % (Auto) 6.9 (2.6-8.5) % Eos % (Auto) 1.7 (0-4.4) % Baso % (Auto) 0.8 (0.2-1.2) % Lymph # (Auto) 2.67 (0.9-3.2) K/mm3 [place] # (Auto) 0.5 (0.1-0.6) K/mm3 Eos # (Auto) 0.1 (0-0.3) K/mm3 Baso # (Auto) 0.1 (0.0-0.1) K/mm3 Abs Immat Gran (auto) 0.01 (0.00-0.031) K/mm3 Absolute Neuts (auto) 3.8 (1.3-6.7) K/mm3 Absolute Nucleated RBC 0.000 (0.0-0.012) K/mm3 Nucleated RBC % 0.0 (0.0-0.2) % PT 13.1 (11.1-14.7) Seconds INR 1.0 APTT 28.3 (22.3-36.8) Seconds Sodium 142 (137-145) mmol/L Potassium 3.9 (3.4-5.0) mmol/L Chloride 105 (98-107) mmol/L Carbon Dioxide 28 (22-30) mmol/L Anion Gap 9 (4-12) mmol/L BUN 28 H (7-17) mg/dL Creatinine 0.76 (0.7-1.0) mg/dL Estim Creat Clear Calc 51 ml/min Estimated GFR > 60 (59 - ) Glucose 112 H (65-110) mg/dL Calcium 9.8 (8.4-10.2) mg/dL Total Bilirubin 0.5 (0.2-1.3) mg/dL AST 30 (14-36) U/L ALT 20 (6-35) U/L Alkaline Phosphatase 55 (38-126) U/L Total Protein 7.0 (6.3-8.2) g/dL Albumin 4.0 (3.5-5.1) g/dL Imaging Data Radiologist's impression: ITS Impressions Chest X-Ray 07/31/24 15:52 IMPRESSION: 1. Mild pulmonary edema. Hip/Pelvis X-Ray 07/31/24 15:53 IMPRESSION: 1. Comminuted intertrochanteric fracture of proximal right femur. 2. Mild osteoarthritis of the hips. Discharge Plan Discharge Clinical Impression: Closed intertrochanteric fracture of right hip Patient Disposition: Still a Patient Condition: Stable
[2024-07-31 16:30] VITALS: BP 107/40; PULSE 66; RESP 15; O2SAT 100
[2024-07-31 17:00] VITALS: BP 124/55; PULSE 68; RESP 16; O2SAT 100
[2024-07-31] MEDS: MORPHINE SULFATE (*CRX) 4 MG/ML INJ IV PUSH (17:26)
[2024-07-31 18:00] VITALS: BP 144/51; PULSE 71; RESP 16; TEMP 37; O2SAT 100
--- NOTE | 2024-07-31 18:00 | P.CONOP_ITS ---
Assessment and Plan Assessment and plan (1) Intertrochanteric fracture of right hip: Code(s): S72.141A - Displaced intertrochanteric fracture of right femur, initial encounter for closed fracture Status: Acute Assessment and Plan: Patient has a displaced intertochanteric fracture of the RIGHT hip. Will proceed with ORIF. History of Present Illness HPI Consult date: 07/31/24 Chief complaint: intertrochanteric fracture Review of Systems 2 Musculoskeletal: Musculoskeletal: Reports myalgias, Reports arthralgias and Reports joint swelling Neurologic: Reports abnormal gait [facility] Past Medical History Medical History (Updated 07/31/24 @ 18:02 by Tony Perez MD) BMI 20.0-20.9, adult Paresthesia of both feet Dysuria Vitamin D deficiency BMI 23.0-23.9, adult Post-menopausal Colon cancer screening normal colonoscopy with Dr. Wilder 08/16/2021 with no further colonoscopies needed BMI 26.0-26.9,adult Hematuria Adult BMI 27.0-27.9 kg/sq m Wellness examination Constipation Osteopenia Arthritis Hyperlipidemia GERD (gastroesophageal reflux disease) Surgical History Surgical History History of suburethral sling procedure History of tubal ligation History of tonsillectomy and adenoidectomy Hx of spinal fusion History of knee replacement procedure of right knee Family History Family History Father Heart disease Hypertension Mother Hypertension Heart disease Grandparent Heart disease Hypertension Grandparent Heart disease Hypertension Sibling Asthma Social History Social History Smoking status: Never smoker Second hand tobacco smoke exposure: No Alcohol intake: current Alcohol use details: very rarely Substance use: never Substance use type: does not use Current Housing: Decline to Answer Concerned About Future Housing: Decline to Answer Difficulty Paying Gas/Electric Bills: Decline to Answer Difficulty Paying for Meds: Decline to Answer Currently Unemployed: Decline to Answer Education: Decline to Answer Difficulty w/ Childcare or Family Care: Decline to Answer Living arrangements: with family Occupation/Education: retired Gender identity (if verbalized by the patient): Female Spiritual care concerns: No Agree to blood products: Yes Meds Home Medications and Allergies Home Medications ?Medication ?Instructions ?Recorded ?Confirmed ?Type multivitamin with minerals-folic 1 tablet PO DAILY 04/19/20 07/30/24 History acid 0.4 mg tablet (One Daily Womens 50 Plus) polyethylene glycol 3350 17 gram 17 g PO DAILY 08/30/20 07/30/24 History oral powder packet (Miralax) cholecalciferol (vitamin D3) 125 125 mcg PO DAILY 07/22/23 07/30/24 History mcg (5,000 unit) capsule zolpidem 10 mg tablet 10 mg PO . q.h.s. PRN insomnia #30 03/02/24 07/30/24 Rx tabs famotidine-Ca carb-mag hydrox 10 1 tablet PO DAILY PRN 07/30/24 07/30/24 History mg-800 mg-165 mg chewable tablet (Pepcid Complete) lovastatin 40 mg tablet 20 mg (1/2 x 40 mg) PO QPM #90 tabs 07/30/24 07/30/24 Rx Allergies Allergy/AdvReac Type Severity Reaction Status Date / Time codeine AdvReac Unknown Nausea and Verified 07/31/24 15:14 Vomiting Vital Signs Vital Signs - 24 hr 07/31/24 15:04 07/31/24 16:00 07/31/24 16:30 Temperature 97.5 F L Pulse Rate 76 67 66 Respiratory Rate 15 15 15 Blood Pressure 159/77 H 154/67 H 107/40 L Pulse Oximetry 100 100 100 Oxygen Delivery Room Air 07/31/24 17:00 Temperature Pulse Rate 68 Respiratory Rate 16 Blood Pressure 124/55 L Pulse Oximetry 100 Oxygen Delivery Exam 2 Narrative: Shortening and deformity. Wiggles toies. Pain with manipulation. 2 Hip/Pelvis X-Ray 07/31/24 Results Labs 07/31/24 15:32 07/31/24 15:32 Labs: Abnormal lab results 07/31/24 Range/Units 15:32 RBC 4.06 L (4.2-5.4) M/mm3 MPV 11.0 H (7.4-10.4) fl BUN 28 H (7-17) mg/dL Glucose 112 H (65-110) mg/dL H & H 07/31/24 Range/Units 15:32 Hgb 12.8 (12.0-15.0) g/dL Hct 38.9 (37.0-47.0) % Coagulation 07/31/24 Range/Units 15:32 INR 1.0 All other labs normal.
[2024-07-31 18:20] VITALS: BMI 21.7
--- NOTE | 2024-07-31 18:30 | ADMGEN ---
This patient, Susan Rhodes, was admitted to [facility] Surg Room 328-01. Patient/family oriented to hospital policies and general routines including ID bracelet, bed and alarms, visiting hours, pain management, procedures, bathroom and other care routines, personal items, smoking policy, room service/diet, and visiting hours. Information on how to activate the Rapid Response Team has been discussed. Patient/Family are encouraged to report perceived risks to care and to ask questions if they do not understand what they are told or what they should do.
--- NOTE | 2024-07-31 18:33 | WPDANESEPP ---
Anes - Eval Pre Procedure Procedure: Right Hip ORIF/IT Nail Date/Time: 07/31/24 18:33 Surgeon: Chris Pre Op Diagnosis: intertrochanteric fracture Patient Data Age: 83 Gender: F Height: 1.73 m Weight: 65.9 kg Last Vital Signs Temp 97.5 F L 07/31/24 15:04 Pulse 68 07/31/24 17:00 Resp 16 07/31/24 17:00 BP 124/55 L 07/31/24 17:00 Pulse Ox 100 07/31/24 17:00 O2 Del Method Room Air 07/31/24 15:04 Allergies Allergy/AdvReac Type Severity Reaction Status Date / Time codeine AdvReac Unknown Nausea and Verified 07/31/24 15:14 Vomiting Home Medications ?Medication ?Instructions ?Recorded ?Confirmed ?Type multivitamin with minerals-folic 1 tablet PO DAILY 04/19/20 07/30/24 History acid 0.4 mg tablet (One Daily Womens 50 Plus) polyethylene glycol 3350 17 gram 17 g PO DAILY 08/30/20 07/30/24 History oral powder packet (Miralax) cholecalciferol (vitamin D3) 125 125 mcg PO DAILY 07/22/23 07/30/24 History mcg (5,000 unit) capsule zolpidem 10 mg tablet 10 mg PO . q.h.s. PRN insomnia #30 03/02/24 07/30/24 Rx tabs famotidine-Ca carb-mag hydrox 10 1 tablet PO DAILY PRN 07/30/24 07/30/24 History mg-800 mg-165 mg chewable tablet (Pepcid Complete) lovastatin 40 mg tablet 20 mg (1/2 x 40 mg) PO QPM #90 tabs 07/30/24 07/30/24 Rx Laboratory Tests 07/31/24 15:32 WBC 7.1 K/mm3 (4.5-10.0) RBC 4.06 L M/mm3 (4.2-5.4) Hgb 12.8 g/dL (12.0-15.0) Hct 38.9 % (37.0-47.0) MCV 95.8 fl (80-100) MCH 31.5 pg (26-34) MCHC 32.9 g/dl (32-36) RDW 13.1 % (11.5-14.5) Plt Count 198 k/mm3 (150-375) MPV 11.0 H fl (7.4-10.4) Immature Gran % (Auto) 0.1 % (0-0.5) Neut % (Auto) 52.9 % (45.5-73.1) Lymph % (Auto) 37.6 % (18.3-44.2) [place] % (Auto) 6.9 % (2.6-8.5) Eos % (Auto) 1.7 % (0-4.4) Baso % (Auto) 0.8 % (0.2-1.2) Lymph # (Auto) 2.67 K/mm3 (0.9-3.2) [place] # (Auto) 0.5 K/mm3 (0.1-0.6) Eos # (Auto) 0.1 K/mm3 (0-0.3) Baso # (Auto) 0.1 K/mm3 (0.0-0.1) Abs Immat Gran (auto) 0.01 K/mm3 (0.00-0.031) Absolute Neuts (auto) 3.8 K/mm3 (1.3-6.7) Absolute Nucleated RBC 0.000 K/mm3 (0.0-0.012) Nucleated RBC % 0.0 % (0.0-0.2) PT 13.1 Seconds (11.1-14.7) INR 1.0 APTT 28.3 Seconds (22.3-36.8) Sodium 142 mmol/L (137-145) Potassium 3.9 mmol/L (3.4-5.0) Chloride 105 mmol/L (98-107) Carbon Dioxide 28 mmol/L (22-30) Anion Gap 9 mmol/L (4-12) BUN 28 H mg/dL (7-17) Creatinine 0.76 mg/dL (0.7-1.0) Estim Creat Clear Calc 51 ml/min Estimated GFR > 60 (59 - ) Glucose 112 H mg/dL (65-110) Calcium 9.8 mg/dL (8.4-10.2) Total Bilirubin 0.5 mg/dL (0.2-1.3) AST 30 U/L (14-36) ALT 20 U/L (6-35) Alkaline Phosphatase 55 U/L (38-126) Total Protein 7.0 g/dL (6.3-8.2) Albumin 4.0 g/dL (3.5-5.1) Patient hx anesthesia problems: none Family hx anesthesia problems: none Results Review: All pre-operative results and documents have been reviewed as part of the pre-operative evaluation. [facility] Past Medical History Medical History Intertrochanteric fracture of right hip BMI 20.0-20.9, adult Paresthesia of both feet Dysuria Vitamin D deficiency BMI 23.0-23.9, adult Post-menopausal Colon cancer screening normal colonoscopy with Dr. Wilder 08/16/2021 with no further colonoscopies needed BMI 26.0-26.9,adult Hematuria Adult BMI 27.0-27.9 kg/sq m Wellness examination Constipation Osteopenia Arthritis Hyperlipidemia GERD (gastroesophageal reflux disease) Surgical History Surgical History History of suburethral sling procedure History of tubal ligation History of tonsillectomy and adenoidectomy Hx of spinal fusion History of knee replacement procedure of right knee Family History Family History Father Heart disease Hypertension Mother Hypertension Heart disease Grandparent Heart disease Hypertension Grandparent Heart disease Hypertension Sibling Asthma Social History Social History Smoking status: Never smoker Second hand tobacco smoke exposure: No Alcohol intake: current Alcohol use details: very rarely Substance use: never Substance use type: does not use Current Housing: Decline to Answer Concerned About Future Housing: Decline to Answer Difficulty Paying Gas/Electric Bills: Decline to Answer Difficulty Paying for Meds: Decline to Answer Currently Unemployed: Decline to Answer Education: Decline to Answer Difficulty w/ Childcare or Family Care: Decline to Answer Living arrangements: with family Occupation/Education: retired Gender identity (if verbalized by the patient): Female Spiritual care concerns: No Agree to blood products: Yes Exam Day of Procedure 07/31/24 18:33 Patient weight: normal Heart: other (2014 EF 66%) Neurological: alert and oriented
--- NOTE | 2024-07-31 19:20 | PM.IMHP ---
H&P: HPI History of Present Illness Date/Time: 07/31/24 19:20 Chief Complaint: Fall Narrative: 83 y/o F presents here with ground level fall and right hip pain with PMH of osteopenia, arthritis, hyperlipidemia, GERD, and vitamin-D deficiency. The patient presents here from home via EMS for further evaluation of right hip pain after a ground level fall. She reports she was bringing in her trash bin to take around to her backyard. As she turned the corner of the house she did not see a patch of ice. She then slipped on ice and fell onto her right side onto her right hip. She denies head strike or loss of consciousness. She attempted to get up but was unable to bear weight on the extremity. The patient is not on anticoagulation. At baseline the patient ambulates without any assistive device and she walks 2 miles daily at her local community center. Per EMS, upon their arrival the right lower extremity appears shortened and rotated. She denies numbness and tingling to her lower extremities. Initial VS at presentation: 97.5? F, HR 76, RR 15, 159/77, and 100% on RA. ED workup showed: No leukocytosis, no anemia, normal coags, no significant electrolyte derangements, creatinine 0.76 and normal GFR. CXR showed mild pulmonary edema. Hip/pelvic XR showed a comminuted intratrochanteric fracture of the proximal right femur and mild osteoarthritis of the hips. Review of Systems Review of Systems: All systems reviewed & are unremarkable except as noted in HPI and below PMFSH Past Medical History Medical History Colon cancer screening normal colonoscopy with Dr. Wilder 08/16/2021 with no further colonoscopies needed Post-menopausal Insomnia Constipation GERD (gastroesophageal reflux disease) BMI 20.0-20.9, adult Vitamin D deficiency Intertrochanteric fracture of right hip 07/31/24 Paresthesia of both feet Wellness examination Osteopenia Arthritis Hyperlipidemia Surgical History Surgical History History of suburethral sling procedure History of tubal ligation History of tonsillectomy and adenoidectomy Hx of spinal fusion History of knee replacement procedure of right knee Family History Family History Father Heart disease Hypertension Mother Hypertension Heart disease Grandparent Heart disease Hypertension Grandparent Heart disease Hypertension Sibling Asthma Social History Social History Smoking status: Never smoker Second hand tobacco smoke exposure: No Alcohol intake: never Alcohol use details: very rarely Substance use: never Substance use type: does not use Do You Feel Safe in your Home?: Yes Lack of Transportation: No Lack of Food: Never True Current Housing: Decline to Answer Concerned About Future Housing: Decline to Answer Difficulty Paying Gas/Electric Bills: Decline to Answer Difficulty Paying for Meds: Decline to Answer Currently Unemployed: Decline to Answer Education: High School Diploma/GED Difficulty w/ Childcare or Family Care: Decline to Answer Living arrangements: with family Occupation/Education: retired Gender identity (if verbalized by the patient): Female Spiritual care concerns: No Agree to blood products: Yes Meds Home Medications and Allergies Home Medications ?Medication ?Instructions ?Recorded ?Confirmed ?Type multivitamin with minerals-folic 1 tablet PO DAILY 04/19/20 07/31/24 History acid 0.4 mg tablet (One Daily Womens 50 Plus) polyethylene glycol 3350 17 gram 17 g PO DAILY 08/30/20 07/31/24 History oral powder packet (Miralax) cholecalciferol (vitamin D3) 125 125 mcg PO DAILY 07/22/23 07/31/24 History mcg (5,000 unit) capsule famotidine-Ca carb-mag hydrox 10 1 tablet PO DAILY PRN indigestion 07/30/24 07/31/24 History mg-800 mg-165 mg chewable tablet (Pepcid Complete) lovastatin 40 mg tablet 20 mg (1/2 x 40 mg) PO QPM #90 tabs 07/30/24 07/31/24 Rx zolpidem 10 mg tablet 5 mg PO . q.h.s. PRN insomnia 07/31/24 07/31/24 History Allergies Allergy/AdvReac Type Severity Reaction Status Date / Time codeine AdvReac Unknown Nausea and Verified 07/31/24 15:14 Vomiting Vital Signs Vital Signs - 24 hr 07/31/24 15:04 07/31/24 16:00 07/31/24 16:30 Temperature 97.5 F L Pulse Rate 76 67 66 Respiratory Rate 15 15 15 Blood Pressure 159/77 H 154/67 H 107/40 L Pulse Oximetry 100 100 100 Oxygen Delivery Room Air 07/31/24 17:00 07/31/24 18:48 Temperature Pulse Rate 68 Respiratory Rate 16 Blood Pressure 124/55 L Pulse Oximetry 100 Oxygen Delivery Room Air Exam Const: General: comfortable and no acute distress Other: , female, nontoxic appearance HENMT: Face/Nose/Sinus: Normal nares present Mouth: Yes moist mucous membranes Eyes: General: appearance normal, both eyes and all related structures Sclera: sclerae normal Pupils: Equal, round and reactive pupils present EOM: EOMs intact bilaterally Resp: Effort & Inspection: normal respiratory effort Auscultation: clear to auscultation bilaterally Cardio: Rate: regular rate Rhythm: regular rhythm Other: S1-S2 present without murmur, rub, ectopy GI: Other: Abdomen soft, nondistended, nontender. Normoactive bowel sounds in all quadrants. Skin: General skin exam: normal color and no rashes or lesions noted Wounds: no wounds Neuro: Speech: normal speech Motor exam (neuro): 5/5 motor strength present throughout Sensory Exam: normal sensation Other: A&O x4 Extrem: Other: RLE shortened and externally rotated. DP 2+ bilat. tenderness over right hip. Psych: Mental Status: mental status grossly normal Affect: normal affect Other: Good insight and judgment, very pleasant H&P: Results Labs Labs: Short CBC 07/31/24 Range/Units 15:32 WBC 7.1 (4.5-10.0) K/mm3 Hgb 12.8 (12.0-15.0) g/dL Hct 38.9 (37.0-47.0) % Plt Count 198 (150-375) k/mm3 BMP 07/31/24 15:32 Sodium 142 Potassium 3.9 Chloride 105 Carbon Dioxide 28 BUN 28 H Creatinine 0.76 Glucose 112 H Calcium 9.8 Liver Function 07/31/24 Range/Units 15:32 Total Bilirubin 0.5 (0.2-1.3) mg/dL AST 30 (14-36) U/L ALT 20 (6-35) U/L Alkaline Phosphatase 55 (38-126) U/L Albumin 4.0 (3.5-5.1) g/dL Assessment and Plan Assessment and plan (1) Intertrochanteric fracture of right hip: Qualifiers: Encounter type: initial encounter Fracture alignment: nondisplaced Fracture type: closed Qualified Code(s): S72.144A - Nondisplaced intertrochanteric fracture of right femur, initial encounter for closed fracture Code(s): S72.141A - Displaced intertrochanteric fracture of right femur, initial encounter for closed fracture Status: Acute Assessment and Plan: - CXR: Mild pulmonary edema - hip/pelvic XR: 1. Comminuted intertrochanteric fracture of proximal right femur. 2. Mild osteoarthritis of the hips. - pulmonary edema seen on CXR, add BNP - check EKG - orthopedics consulted, Chris MONTANEZ. NPO at midnight, plan for ORIF tomorrow (08/01) - analgesics p.r.n. - will need PT/OT post-op Plan Diet: Heart healthy, NPO midnight GI Prophylaxis: Not currently indicated DVT Prophylaxis: SCDs Lines: Peripheral Code Status: Full code Quality VTE Prophylaxis VTE prophylaxis: mechanical ordered Hospitalist MIPS Advance Care Plan I have confirmed that the patient's Advanced Care Plan is present, code status is documented, or surrogate decision maker is listed in patient medical record.: Yes Medication Reconciliation I have utilized all available resources to obtain, update and review the patients current medications (includes all prescriptions, OTC, herbals, cannabis, and nutritional supplements).: Yes
[2024-07-31 19:57] LABS: NT Pro B Type Natriuretic Pept 150 pg/mL (19.9-100)
[2024-07-31 20:07] VITALS: BP 124/53; PULSE 77; RESP 14; TEMP 37.1; O2SAT 100
[2024-07-31] MEDS: LOVASTATIN 20 MG TABLET PO (20:14)
[2024-07-31] MEDS: HYDROcodone/acetaminophen (*CRX) 5-325 MG TABLET 1 TAB PO (21:15)
[2024-08-01] VITALS (17 sets, daily range): BP systolic 104–128; BP diastolic 39–65; PULSE 76–107; RESP 12–18; TEMP 36.4–37.6; O2SAT 96–100
[2024-08-01 07:09] LABS: Basophils Percent Auto 0.5 % (0.2-1.2); Eosinophils Percent Auto 0.1 % (0-4.4); Hematocrit 34.7 % (37.0-47.0); Immature Granulocyte Absolute 0.02 K/mm3 (0.00-0.031); Immature Granulocyte Percent A 0.2 % (0-0.5); Lymphocytes Absolute Auto 1.26 K/mm3 (0.9-3.2); Lymphocytes Percent Auto 14.4 % (18.3-44.2); Mean Corpuscular HGB Conc 31.7 g/dl (32-36); Mean Corpuscular Hemoglobin 31.1 pg (26-34); Mean Platelet Volume 11.2 fl (7.4-10.4); Monocytes Absolute Auto 0.7 K/mm3 (0.1-0.6); Monocytes Percent Auto 7.8 % (2.6-8.5); Neutrophils Absolute Auto 6.7 K/mm3 (1.3-6.7); Platelet Count Result 175 k/mm3 (150-375); Red Blood Count 3.54 M/mm3 (4.2-5.4); Red Cell Distribution Width 13.3 % (11.5-14.5); White Blood Count 8.7 K/mm3 (4.5-10.0)
[2024-08-01 07:26] LABS: Anion Gap 5 mmol/L (4-12); Blood Urea Nitrogen 29 mg/dL (7-17); Calcium 9.3 mg/dL (8.4-10.2); Carbon Dioxide 29 mmol/L (22-30); Chloride 104 mmol/L (98-107); Estimated CRCL calculation 59 ml/min; Estimated Glomerular Filt Rate > 60; Glucose 106 mg/dL (65-110); Sodium 138 mmol/L (137-145)
--- NOTE | 2024-08-01 07:44 | WPDHPUPDATE1 ---
History and Physical Update Update Date/Time: 08/01/24 07:44 History and Physical has been reviewed, including an updated exam of the patient. There are NO changes in the patient's condition. Risks, benefits, and alternatives have been discussed and questions answered. Patient agrees to proceed with procedure.
--- NOTE | 2024-08-01 07:50 | WPDANESEPP ---
Anes - Eval Pre Procedure Procedure: Operation Date: 08/01/24 08:00 Proposed Procedures p ORIF Femur Fracture(Right) - Tony Perez MD Date/Time: 08/01/24 07:50 Surgeon: Chris Preop Diagnosis: right IT FX Pre Op Diagnosis: intertrochanteric fracture Patient Data Age: 83 Gender: F Height: 1.73 m Weight: 65 kg Last Vital Signs Temp 99.5 F 08/01/24 04:43 Pulse 82 08/01/24 04:43 Resp 18 08/01/24 04:43 BP 128/44 L 08/01/24 04:43 Pulse Ox 99 08/01/24 04:43 O2 Del Method Room Air 07/31/24 18:48 Allergies Allergy/AdvReac Type Severity Reaction Status Date / Time codeine AdvReac Unknown Nausea and Verified 07/31/24 15:14 Vomiting Home Medications ?Medication ?Instructions ?Recorded ?Confirmed ?Type multivitamin with minerals-folic 1 tablet PO DAILY 04/19/20 07/31/24 History acid 0.4 mg tablet (One Daily Womens 50 Plus) polyethylene glycol 3350 17 gram 17 g PO DAILY 08/30/20 07/31/24 History oral powder packet (Miralax) cholecalciferol (vitamin D3) 125 125 mcg PO DAILY 07/22/23 07/31/24 History mcg (5,000 unit) capsule famotidine-Ca carb-mag hydrox 10 1 tablet PO DAILY PRN indigestion 07/30/24 07/31/24 History mg-800 mg-165 mg chewable tablet (Pepcid Complete) lovastatin 40 mg tablet 20 mg (1/2 x 40 mg) PO QPM #90 tabs 07/30/24 07/31/24 Rx zolpidem 10 mg tablet 5 mg PO . q.h.s. PRN insomnia 07/31/24 07/31/24 History Laboratory Tests 07/31/24 08/01/24 15:32 06:47 WBC 7.1 K/mm3 8.7 K/mm3 (4.5-10.0) (4.5-10.0) RBC 4.06 L M/mm3 3.54 L M/mm3 (4.2-5.4) (4.2-5.4) Hgb 12.8 g/dL 11.0 L g/dL (12.0-15.0) (12.0-15.0) Hct 38.9 % 34.7 L % (37.0-47.0) (37.0-47.0) MCV 95.8 fl 98.0 fl (80-100) (80-100) MCH 31.5 pg 31.1 pg (26-34) (26-34) MCHC 32.9 g/dl 31.7 L g/dl (32-36) (32-36) RDW 13.1 % 13.3 % (11.5-14.5) (11.5-14.5) Plt Count 198 k/mm3 175 k/mm3 (150-375) (150-375) MPV 11.0 H fl 11.2 H fl (7.4-10.4) (7.4-10.4) Immature Gran % (Auto) 0.1 % 0.2 % (0-0.5) (0-0.5) Neut % (Auto) 52.9 % 77.0 H % (45.5-73.1) (45.5-73.1) Lymph % (Auto) 37.6 % 14.4 L % (18.3-44.2) (18.3-44.2) [place] % (Auto) 6.9 % 7.8 % (2.6-8.5) (2.6-8.5) Eos % (Auto) 1.7 % 0.1 % (0-4.4) (0-4.4) Baso % (Auto) 0.8 % 0.5 % (0.2-1.2) (0.2-1.2) Lymph # (Auto) 2.67 K/mm3 1.26 K/mm3 (0.9-3.2) (0.9-3.2) [place] # (Auto) 0.5 K/mm3 0.7 H K/mm3 (0.1-0.6) (0.1-0.6) Eos # (Auto) 0.1 K/mm3 0.0 K/mm3 (0-0.3) (0-0.3) Baso # (Auto) 0.1 K/mm3 0.0 K/mm3 (0.0-0.1) (0.0-0.1) Abs Immat Gran (auto) 0.01 K/mm3 0.02 K/mm3 (0.00-0.031) (0.00-0.031) Absolute Neuts (auto) 3.8 K/mm3 6.7 K/mm3 (1.3-6.7) (1.3-6.7) Absolute Nucleated RBC 0.000 K/mm3 0.000 K/mm3 (0.0-0.012) (0.0-0.012) Nucleated RBC % 0.0 % 0.0 % (0.0-0.2) (0.0-0.2) PT 13.1 Seconds (11.1-14.7) INR 1.0 APTT 28.3 Seconds (22.3-36.8) Sodium 142 mmol/L 138 mmol/L (137-145) (137-145) Potassium 3.9 mmol/L 4.0 mmol/L (3.4-5.0) (3.4-5.0) Chloride 105 mmol/L 104 mmol/L (98-107) (98-107) Carbon Dioxide 28 mmol/L 29 mmol/L (22-30) (22-30) Anion Gap 9 mmol/L 5 mmol/L (4-12) (4-12) BUN 28 H mg/dL 29 H mg/dL (7-17) (7-17) Creatinine 0.76 mg/dL 0.65 L mg/dL (0.7-1.0) (0.7-1.0) Estim Creat Clear Calc 51 ml/min 59 ml/min Estimated GFR > 60 > 60 (59 - ) (59 - ) Glucose 112 H mg/dL 106 mg/dL (65-110) (65-110) Calcium 9.8 mg/dL 9.3 mg/dL (8.4-10.2) (8.4-10.2) Total Bilirubin 0.5 mg/dL (0.2-1.3) AST 30 U/L (14-36) ALT 20 U/L (6-35) Alkaline Phosphatase 55 U/L (38-126) NT-Pro-B Natriuret Pep 150 H pg/mL (19.9-100) Total Protein 7.0 g/dL (6.3-8.2) Albumin 4.0 g/dL (3.5-5.1) Blood Type Pending Antibody Screen Pending ECG: SR 72 Patient hx anesthesia problems: none Family hx anesthesia problems: none Results Review: All pre-operative results and documents have been reviewed as part of the pre-operative evaluation. [facility] Past Medical History Medical History Colon cancer screening normal colonoscopy with Dr. Wilder 08/16/2021 with no further colonoscopies needed Post-menopausal Insomnia Constipation GERD (gastroesophageal reflux disease) BMI 20.0-20.9, adult Vitamin D deficiency Intertrochanteric fracture of right hip 07/31/24 Paresthesia of both feet Wellness examination Osteopenia Arthritis Hyperlipidemia Surgical History Surgical History History of suburethral sling procedure History of tubal ligation History of tonsillectomy and adenoidectomy Hx of spinal fusion History of knee replacement procedure of right knee Family History Family History Father Heart disease Hypertension Mother Hypertension Heart disease Grandparent Heart disease Hypertension Grandparent Heart disease Hypertension Sibling Asthma Social History Social History Smoking status: Never smoker Second hand tobacco smoke exposure: No Alcohol intake: never Alcohol use details: very rarely Substance use: never Substance use type: does not use Do You Feel Safe in your Home?: Yes Lack of Transportation: No Lack of Food: Never True Current Housing: Decline to Answer Concerned About Future Housing: Decline to Answer Difficulty Paying Gas/Electric Bills: Decline to Answer Difficulty Paying for Meds: Decline to Answer Currently Unemployed: Decline to Answer Education: High School Diploma/GED Difficulty w/ Childcare or Family Care: Decline to Answer Living arrangements: with family Occupation/Education: retired Gender identity (if verbalized by the patient): Female Spiritual care concerns: No Agree to blood products: Yes Exam Day of Procedure 08/01/24 07:50
--- NOTE | 2024-08-01 08:00 | ECG_ITS ---
Test Date: 2024-08-01 07:33:34 Measurements Intervals [place] Rate: 72 P: 73 IA: 169 QRS: 38 QRSD: 93 T: 63 QT: 393 QTc: 431 Interpretive Statements SINUS RHYTHM NORMAL ECG No previous ECG available for comparison Electronically Signed On 08-01-2024 09:01:14 TRANSMISSION OPERATOR by Jordan Cook D.O.
--- NOTE | 2024-08-01 08:06 | WPDANESEPPF ---
Anes - Initial Pre Proc Eval Procedure: Operation Date: 08/01/24 08:00 Proposed Procedures p ORIF Femur Fracture(Right) - Tony Perez MD Date/Time: 08/01/24 08:06 Surgeon: Sukh Keller MD Pre Op Diagnosis: intertrochanteric fracture Patient Data Age: 83 Gender: F Height: 1.73 m Weight: 65 kg Last Vital Signs Temp 37.5 C 08/01/24 04:43 Pulse 82 08/01/24 04:43 Resp 18 08/01/24 04:43 BP 128/44 L 08/01/24 04:43 Pulse Ox 99 08/01/24 04:43 O2 Del Method Room Air 07/31/24 18:48 Allergies Allergy/AdvReac Type Severity Reaction Status Date / Time codeine AdvReac Unknown Nausea and Verified 07/31/24 15:14 Vomiting Home Medications ?Medication ?Instructions ?Recorded ?Confirmed ?Type multivitamin with minerals-folic 1 tablet PO DAILY 04/19/20 07/31/24 History acid 0.4 mg tablet (One Daily Womens 50 Plus) polyethylene glycol 3350 17 gram 17 g PO DAILY 08/30/20 07/31/24 History oral powder packet (Miralax) cholecalciferol (vitamin D3) 125 125 mcg PO DAILY 07/22/23 07/31/24 History mcg (5,000 unit) capsule famotidine-Ca carb-mag hydrox 10 1 tablet PO DAILY PRN indigestion 07/30/24 07/31/24 History mg-800 mg-165 mg chewable tablet (Pepcid Complete) lovastatin 40 mg tablet 20 mg (1/2 x 40 mg) PO QPM #90 tabs 07/30/24 07/31/24 Rx zolpidem 10 mg tablet 5 mg PO . q.h.s. PRN insomnia 07/31/24 07/31/24 History Laboratory Tests 07/31/24 08/01/24 15:32 06:47 WBC 7.1 K/mm3 8.7 K/mm3 (4.5-10.0) (4.5-10.0) RBC 4.06 L M/mm3 3.54 L M/mm3 (4.2-5.4) (4.2-5.4) Hgb 12.8 g/dL 11.0 L g/dL (12.0-15.0) (12.0-15.0) Hct 38.9 % 34.7 L % (37.0-47.0) (37.0-47.0) MCV 95.8 fl 98.0 fl (80-100) (80-100) MCH 31.5 pg 31.1 pg (26-34) (26-34) MCHC 32.9 g/dl 31.7 L g/dl (32-36) (32-36) RDW 13.1 % 13.3 % (11.5-14.5) (11.5-14.5) Plt Count 198 k/mm3 175 k/mm3 (150-375) (150-375) MPV 11.0 H fl 11.2 H fl (7.4-10.4) (7.4-10.4) Immature Gran % (Auto) 0.1 % 0.2 % (0-0.5) (0-0.5) Neut % (Auto) 52.9 % 77.0 H % (45.5-73.1) (45.5-73.1) Lymph % (Auto) 37.6 % 14.4 L % (18.3-44.2) (18.3-44.2) [place] % (Auto) 6.9 % 7.8 % (2.6-8.5) (2.6-8.5) Eos % (Auto) 1.7 % 0.1 % (0-4.4) (0-4.4) Baso % (Auto) 0.8 % 0.5 % (0.2-1.2) (0.2-1.2) Lymph # (Auto) 2.67 K/mm3 1.26 K/mm3 (0.9-3.2) (0.9-3.2) [place] # (Auto) 0.5 K/mm3 0.7 H K/mm3 (0.1-0.6) (0.1-0.6) Eos # (Auto) 0.1 K/mm3 0.0 K/mm3 (0-0.3) (0-0.3) Baso # (Auto) 0.1 K/mm3 0.0 K/mm3 (0.0-0.1) (0.0-0.1) Abs Immat Gran (auto) 0.01 K/mm3 0.02 K/mm3 (0.00-0.031) (0.00-0.031) Absolute Neuts (auto) 3.8 K/mm3 6.7 K/mm3 (1.3-6.7) (1.3-6.7) Absolute Nucleated RBC 0.000 K/mm3 0.000 K/mm3 (0.0-0.012) (0.0-0.012) Nucleated RBC % 0.0 % 0.0 % (0.0-0.2) (0.0-0.2) PT 13.1 Seconds (11.1-14.7) INR 1.0 APTT 28.3 Seconds (22.3-36.8) Sodium 142 mmol/L 138 mmol/L (137-145) (137-145) Potassium 3.9 mmol/L 4.0 mmol/L (3.4-5.0) (3.4-5.0) Chloride 105 mmol/L 104 mmol/L (98-107) (98-107) Carbon Dioxide 28 mmol/L 29 mmol/L (22-30) (22-30) Anion Gap 9 mmol/L 5 mmol/L (4-12) (4-12) BUN 28 H mg/dL 29 H mg/dL (7-17) (7-17) Creatinine 0.76 mg/dL 0.65 L mg/dL (0.7-1.0) (0.7-1.0) Estim Creat Clear Calc 51 ml/min 59 ml/min Estimated GFR > 60 > 60 (59 - ) (59 - ) Glucose 112 H mg/dL 106 mg/dL (65-110) (65-110) Calcium 9.8 mg/dL 9.3 mg/dL (8.4-10.2) (8.4-10.2) Total Bilirubin 0.5 mg/dL (0.2-1.3) AST 30 U/L (14-36) ALT 20 U/L (6-35) Alkaline Phosphatase 55 U/L (38-126) NT-Pro-B Natriuret Pep 150 H pg/mL (19.9-100) Total Protein 7.0 g/dL (6.3-8.2) Albumin 4.0 g/dL (3.5-5.1) Blood Type A Positive Antibody Screen Negative Patient hx anesthesia problems: none Family hx anesthesia problems: none Results Review: All pre-operative results and documents have been reviewed as part of the pre-operative evaluation. [facility] Past Medical History Medical History Colon cancer screening normal colonoscopy with Dr. Wilder 08/16/2021 with no further colonoscopies needed Post-menopausal Insomnia Constipation GERD (gastroesophageal reflux disease) BMI 20.0-20.9, adult Vitamin D deficiency Intertrochanteric fracture of right hip 07/31/24 Paresthesia of both feet Wellness examination Osteopenia Arthritis Hyperlipidemia Surgical History Surgical History History of suburethral sling procedure History of tubal ligation History of tonsillectomy and adenoidectomy Hx of spinal fusion History of knee replacement procedure of right knee Family History Family History Father Heart disease Hypertension Mother Hypertension Heart disease Grandparent Heart disease Hypertension Grandparent Heart disease Hypertension Sibling Asthma Social History Social History Smoking status: Never smoker Second hand tobacco smoke exposure: No Alcohol intake: never Alcohol use details: very rarely Substance use: never Substance use type: does not use Do You Feel Safe in your Home?: Yes Lack of Transportation: No Lack of Food: Never True Current Housing: Decline to Answer Concerned About Future Housing: Decline to Answer Difficulty Paying Gas/Electric Bills: Decline to Answer Difficulty Paying for Meds: Decline to Answer Currently Unemployed: Decline to Answer Education: High School Diploma/GED Difficulty w/ Childcare or Family Care: Decline to Answer Living arrangements: with family Occupation/Education: retired Gender identity (if verbalized by the patient): Female Spiritual care concerns: No Agree to blood products: Yes Anes - Eval Final PreProcedure Day of Procedure 08/01/24 08:06 Patient weight: normal Heart: regular rate and rhythm Lungs: clear to auscultation Airway: Mallampati scale class II Neurological: alert and oriented Last oral intake: >/= 8 hours ASA classification: II Emergent: no Anesthetic plan: proceed Anesthesia type and monitoring: general LMA and standard monitoring Results Review: All pre-operative results and documents have been reviewed as part of the pre-operative evaluation. Informed Consent: The patient's anesthetic plan and its attendant risks and benefits were discussed with the patient/family/POA. Questions were solicited and answers provided to the satisfaction of the patient/family/POA.
[2024-08-01] MEDS: ceFAZolin 2 GM/D5W 50 ML 2 GM/50 ML BAG IVPB ×3 (08:09→23:00)
--- NOTE | 2024-08-01 09:11 | W.PM.PROC2 ---
Procedure Note - Detailed Date of Procedure 08/01/24 Pre-op Diagnosis Intertrochanteric fracture RIGHT hip Post-op Diagnosis Same Procedure Performed Open reduction internal fixation with a trochanteric nail Surgeon Tony Perez MD [employer] Michael Anesthesia General Indications Pain and fracture Description of Procedure Patient brought to operating room #7. A general anesthetic was administered. She was position on the operating room table, the fracture table. She was sterilely prepped and draped. A longitudinal incision made over the tip of the trochanter. With the tip of the trochanter was broached with an awl. A guide angella placed and then a 9 x 125 nail placed. 105mm screw was placed in the center of the head. A distal locking screw was placed in the dynamic screw hole measuring 38 millimeters. At this point near anatomic alignment was achieved. The wound irrigated. Hemostasis obtained. In closed with the 2. Vicryl 2-0 Vicryl and ame. Implants [employer] Trochanteric Nail Estimated Blood Loss 200 Urine Output 500 Complications No immediate complications Condition Stable Disposition PACU [facility] Billing Surgery - Charge Forward: Surgery Billing ([id number] Troch Nail)
[2024-08-01] MEDS: LACTATED RINGERS 1,000 ML 30 ML IV CONT (09:32)
[2024-08-01] MEDS: fentaNYL CITRATE INJ (*CRX) 100 MCG/2 ML VIAL 25 MCG IV PUSH ×4 (10:00→10:45)
[2024-08-01] MEDS: HYDROmorphone HCL INJ (*CRX) 1 MG/ML SYR IV PUSH (13:05)
--- NOTE | 2024-08-01 14:56 | PCOTNOTE ---
The patient initial evaluation for occupational therapy was not able to be completed on 08/01 due to patient passing out during PT stand transfer from bed. OT assisted with safely returning patient to bed and situating once alert comfortable in bed. Will plan to continue to follow patient and evaluate when able.
--- NOTE | 2024-08-01 15:22 | PM.IMPN ---
Progress Note: A&P Assessment and Plan (1) Intertrochanteric fracture of right hip: Qualifiers: Encounter type: initial encounter Fracture type: closed Fracture alignment: nondisplaced Qualified Code(s): S72.144A - Nondisplaced intertrochanteric fracture of right femur, initial encounter for closed fracture Code(s): S72.141A - Displaced intertrochanteric fracture of right femur, initial encounter for closed fracture Status: Acute Plan this is a 84=1 yo female who presents to the ED with f all. she was brinding in her trash bin when she slipped on ice falling on her right hip. she had no head injry or LOC. she attempted to get up but was unable to bear weight on the extremity. The patient ambulates without any assistive device at baseline. initial VS at presentation: stable . ed workup showed normal wbc, normal hb, normal chem panel. cxr with mild pulmonary edema. hip pelvis xray showed comminuted intratrochanteric fracture of the proximal right femur and mild osteoarthritirs of the hips. orthopedics consulted and underwent ORIF 08/01/2024. mild pulmoanry edema clinically not in distress. Will get echo Murmur noted on exam examination DVT proph: on xarelto Diet: Heart healthy Code Status: Full code Subjective Date/time seen: 08/01/24 15:22 Interval history: seen post surgery. doing well. pain is controlled. no sob, chest pain Review of Systems Review of Systems: All systems reviewed & are unremarkable except as noted in HPI and below Exam Narrative: GENERAL: Well-appearing, well-nourished, and in no acute distress. HEAD: Normocephalic, atraumatic. ENT: Mucous membranes moist. CHEST: Clear to auscultation. No respiratory distress. HEART: Regular rate and rhythm. Normal peripheral pulses. ABDOMEN: Soft, nontender, nondistended. EXTREMITIES: Right hip with dressing in place which is clean dry and intact, Neurovascular intact in the right lower extremity. Other extremities unremarkable. SKIN: Warm, dry, no rash. NEURO: NAlert and oriented x3. PSYCH: Normal mood and affect. Objective Data Vital Signs Vital Signs: Vital Signs - 24 hr 07/31/24 16:00 07/31/24 16:30 07/31/24 17:00 Temperature Pulse Rate 67 66 68 Respiratory Rate 15 15 16 Blood Pressure 154/67 H 107/40 L 124/55 L Pulse Oximetry 100 100 100 Oxygen Delivery Oxygen Flow Rate 07/31/24 18:00 07/31/24 18:48 07/31/24 20:07 Temperature 98.6 F 98.8 F Pulse Rate 71 77 Respiratory Rate 16 14 Blood Pressure 144/51 H 124/53 L Pulse Oximetry 100 100 Oxygen Delivery Room Air Oxygen Flow Rate 08/01/24 04:43 08/01/24 09:32 08/01/24 09:45 Temperature 99.5 F 98.1 F Pulse Rate 82 107 H 96 Respiratory Rate 18 12 12 Blood Pressure 128/44 L 116/55 L 112/48 L Pulse Oximetry 99 100 96 Oxygen Delivery Simple Face Mask Simple Face Mask Oxygen Flow Rate 8 8 08/01/24 10:00 08/01/24 10:15 08/01/24 10:30 Temperature Pulse Rate 87 87 93 Respiratory Rate 12 14 18 Blood Pressure 119/53 L 121/56 L 110/59 L Pulse Oximetry 99 98 96 Oxygen Delivery Room Air Room Air Room Air Oxygen Flow Rate 08/01/24 10:45 Temperature Pulse Rate 82 Respiratory Rate 14 Blood Pressure 104/50 L Pulse Oximetry 98 Oxygen Delivery Room Air Oxygen Flow Rate Intake/Output Intake/Output: Intake & Output 07/29/24 07/30/24 07/31/24 08/01/24 23:59 23:59 23:59 23:59 Intake Total 800 Output Total 1000 Balance -200 Meds/Results Medications: Active Medications Generic Name Dose Route Start Last Admin Trade Name Freq PRN Reason Stop Dose Admin Hydrocodone Bitart/Acetaminophen 1 tab 08/01/24 10:51 Hydrocodone/Acetaminophen (*Crx) 5-325 Mg Tablet PO Q4H PRN Pain Rated 4-6 Hydrocodone Bitart/Acetaminophen 1 tab 08/01/24 10:51 Hydrocodone/Acetaminophen (*Crx) 7.5-325 Mg Tablet PO Q4H PRN Pain Rated 7-10 Hydromorphone HCl 1 mg 08/01/24 10:51 08/01/24 13:05 Hydromorphone Hcl Inj (*Crx) 1 Mg/Ml Syr IV PUSH 1 mg Q2H PRN Administration Breakthrough Pain Rated 7-10 or NPO Hydromorphone HCl 0.5 mg 08/01/24 10:51 Hydromorphone Hcl Inj (*Crx) 1 Mg/Ml Syr IV PUSH Q2H PRN Breakthrough Pain Rated 4-6 or NPO Hydroxyzine Pamoate 50 mg 08/01/24 10:51 Hydroxyzine Pamoate 25 Mg Capsule PO Q4H PRN Itching Lactated Ringer's 1,000 mls @ 30 mls/hr 07/31/24 18:35 08/01/24 10:18 Lr - Lactated Ringers Iv IV CONT Infused .Q24H URBANO Infusion Lactated Ringer's 1,000 mls @ 30 mls/hr 08/01/24 08:10 Lr - Lactated Ringers Iv IV CONT .Q24H URBANO Lactated Ringer's 1,000 mls @ 30 mls/hr 08/01/24 08:10 Lr - Lactated Ringers Iv IV CONT .Q24H URBANO Sodium Chloride 1,000 mls @ 125 mls/hr 08/01/24 10:51 Normal Saline Iv IV CONT .Q8H URBANO Cefazolin Sodium 2 gm in 50 mls @ 100 mls/hr 08/01/24 16:00 Ancef 2 Gm/D5w 50 Ml IVPB 08/02/24 08:29 Q8H URBANO Ibuprofen 800 mg in 200 mls @ 400 mls/hr 08/01/24 10:51 Caldolor 800 Mg/200 Ml IVPB Q6H PRN Breakthrough Pain Rated 1-3 or NPO Lovastatin 20 mg 07/31/24 19:40 07/31/24 20:14 Lovastatin 20 Mg Tablet PO 20 mg QPM URBANO Administration Naloxone HCl 0.1 mg 08/01/24 10:51 Naloxone Hcl 0.4 Mg/Ml Vial IV PUSH Q2M PRN Opiate Reversal Ondansetron HCl 4 mg 08/01/24 08:07 Ondansetron Inj 4 Mg/2 Ml Vial IV PUSH ONCE PRN Nausea Ondansetron HCl 4 mg 08/01/24 10:51 Ondansetron Inj 4 Mg/2 Ml Vial IV PUSH Q4H PRN Nausea And Vomiting Polyethylene Glycol 17 gm 08/01/24 09:00 Polyethylene Glycol 3350 17 Gm Powd.Pack PO DAILY URBANO Polyethylene Glycol 17 gm 08/02/24 09:00 Polyethylene Glycol 3350 17 Gm Powd.Pack PO QAM URBANO Rivaroxaban 10 mg 08/01/24 17:00 Rivaroxaban 10 Mg Tablet PO DAILY@17 [facility] Senna/Docusate Sodium 2 tab 08/01/24 17:00 Senna/Docusate Sodium Tablet PO BID [facility] Tramadol HCl 50 mg 08/01/24 10:51 Tramadol Hcl (*Crx) 50 Mg Tablet PO Q4H PRN Pain Rated 1-3 Radiology Results: ITS Impressions Chest X-Ray 07/31/24 15:52 IMPRESSION: 1. Mild pulmonary edema. Hip/Pelvis X-Ray 07/31/24 15:53 IMPRESSION: 1. Comminuted intertrochanteric fracture of proximal right femur. 2. Mild osteoarthritis of the hips. Intraoperative X-Ray 08/01/24 09:18 IMPRESSION: 1. Fluoroscopy utilized during reduction and internal fixation of a comminuted intratrochanteric fracture of the proximal right femur with expected appearance post fixation. See procedure note for further detail. Labs Labs: Laboratory Results - last 24 hr 07/31/24 08/01/24 15:32 06:47 WBC 7.1 8.7 RBC 4.06 L 3.54 L Hgb 12.8 11.0 L Hct 38.9 34.7 L MCV 95.8 98.0 MCH 31.5 31.1 MCHC 32.9 31.7 L RDW 13.1 13.3 Plt Count 198 175 MPV 11.0 H 11.2 H Immature Gran % (Auto) 0.1 0.2 Neut % (Auto) 52.9 77.0 H Lymph % (Auto) 37.6 14.4 L [place] % (Auto) 6.9 7.8 Eos % (Auto) 1.7 0.1 Baso % (Auto) 0.8 0.5 Lymph # (Auto) 2.67 1.26 [place] # (Auto) 0.5 0.7 H Eos # (Auto) 0.1 0.0 Baso # (Auto) 0.1 0.0 Abs Immat Gran (auto) 0.01 0.02 Absolute Neuts (auto) 3.8 6.7 Absolute Nucleated RBC 0.000 0.000 Nucleated RBC % 0.0 0.0 PT 13.1 INR 1.0 APTT 28.3 Sodium 142 138 Potassium 3.9 4.0 Chloride 105 104 Carbon Dioxide 28 29 Anion Gap 9 5 BUN 28 H 29 H Creatinine 0.76 0.65 L Estim Creat Clear Calc 51 59 Estimated GFR > 60 > 60 Glucose 112 H 106 Calcium 9.8 9.3 Total Bilirubin 0.5 AST 30 ALT 20 Alkaline Phosphatase 55 NT-Pro-B Natriuret Pep 150 H Total Protein 7.0 Albumin 4.0 Blood Type A Positive Antibody Screen Negative
[2024-08-01] MEDS: SENNA/DOCUSATE SODIUM TABLET 2 TAB PO (18:17)
[2024-08-01] MEDS: LOVASTATIN 20 MG TABLET PO (18:17)
[2024-08-01] MEDS: RIVAROXABAN 10 MG TABLET PO (18:17)
[2024-08-01] MEDS: SODIUM CHLORIDE 0.9% IV 1,000 ML 125 ML IV CONT ×2 (18:18→20:46)
[2024-08-01] MEDS: HYDROcodone/acetaminophen (*CRX) 7.5-325 MG TABLET 1 TAB PO (20:45)
[2024-08-02 04:00] VITALS: BP 113/58; PULSE 85; RESP 84; TEMP 36.3; O2SAT 100
[2024-08-02 06:38] LABS: Basophils Percent Auto 0.2 % (0.2-1.2); Hematocrit 22.7 % (37.0-47.0); Hemoglobin 7.3 g/dL (12.0-15.0); Immature Granulocyte Absolute 0.03 K/mm3 (0.00-0.031); Immature Granulocyte Percent A 0.3 % (0-0.5); Immature Platelet Fraction Pct 6.1 % (0.9-11.2); Lymphocytes Absolute Auto 1.47 K/mm3 (0.9-3.2); Mean Corpuscular HGB Conc 32.2 g/dl (32-36); Mean Corpuscular Hemoglobin 31.1 pg (26-34); Mean Corpuscular Volume 96.6 fl (80-100); Mean Platelet Volume 11.4 fl (7.4-10.4); Monocytes Percent Auto 8.4 % (2.6-8.5); Neutrophils Absolute Auto 8.9 K/mm3 (1.3-6.7); Neutrophils Percent Auto 78.1 % (45.5-73.1); Platelet Count Result 144 k/mm3 (150-375); Red Blood Count 2.35 M/mm3 (4.2-5.4); Red Cell Distribution Width 13.3 % (11.5-14.5); White Blood Count 11.3 K/mm3 (4.5-10.0)
[2024-08-02 06:48] LABS: Anion Gap 5 mmol/L (4-12); Blood Urea Nitrogen 36 mg/dL (7-17); Calcium 8.5 mg/dL (8.4-10.2); Carbon Dioxide 26 mmol/L (22-30); Chloride 101 mmol/L (98-107); Estimated CRCL calculation 41 ml/min; Estimated Glomerular Filt Rate 56; Glucose 101 mg/dL (65-110); Potassium 4.1 mmol/L (3.4-5.0); Sodium 132 mmol/L (137-145)
[2024-08-02 08:00] VITALS: BP 100/46; PULSE 87; RESP 16; TEMP 36.6; O2SAT 99
[2024-08-02] MEDS: ceFAZolin 2 GM/D5W 50 ML 2 GM/50 ML BAG IVPB (09:00)
[2024-08-02] MEDS: SENNA/DOCUSATE SODIUM TABLET 2 TAB PO ×2 (09:01→17:17)
[2024-08-02] MEDS: polyethylene glycoL 3350 17 GM POWD.PACK PO ×2 (09:01→09:10)
[2024-08-02] MEDS: HYDROcodone/acetaminophen (*CRX) 7.5-325 MG TABLET 1 TAB PO (09:07)
[2024-08-02 10:13] VITALS: BMI 11.0
--- NOTE | 2024-08-02 10:13 | PC.NURSE ---
Patient resting in bed for morning assessment with family at bedside. Patient has complaints of pain/achiness in RUE. Patient calm and cooperative. She is compliant with medication. OT and PT to see her today.
--- NOTE | 2024-08-02 12:18 | P.PNIM_ITS ---
Progress Note: A&P Assessment and Plan (1) Intertrochanteric fracture of right hip: Qualifiers: Encounter type: initial encounter Fracture type: closed Fracture alignment: nondisplaced Qualified Code(s): S72.144A - Nondisplaced intertrochanteric fracture of right femur, initial encounter for closed fracture Code(s): S72.141A - Displaced intertrochanteric fracture of right femur, initial encounter for closed fracture Status: Acute Plan this is a 84=1 yo female who presents to the ED with f all. she was brinding in her trash bin when she slipped on ice falling on her right hip. she had no head injry or LOC. she attempted to get up but was unable to bear weight on the extremity. The patient ambulates without any assistive device at baseline. initial VS at presentation: stable . ed workup showed normal wbc, normal hb, normal chem panel. cxr with mild pu lmonary edema. hip pelvis xray showed comminuted intratrochanteric fracture of the proximal right femur and mild osteoarthritirs of the hips. orthopedics consulted and underwent ORIF 08/01/2024. mild pulmoanry edema clinically not in distress. Echo pending Acute blood loss anemia hemoglobin down to 7.3 today. From 11 will continue to monitor Murmur noted on exam examination DVT proph: on xarelto Diet: Heart healthy Code Status: Full code Subjective Date/time seen: 08/02/24 12:18 Interval history: Work with therapy This a.m. complains of hip pain. No chest pain or shortness of breath Review of Systems Review of Systems: All systems reviewed & are unremarkable except as noted in HPI and below Exam Narrative: GENERAL: Well-appearing, well-nourished, and in no acute distress. HEAD: Normocephalic, atraumatic. ENT: Mucous membranes moist. CHEST: Clear to auscultation. No respiratory distress. HEART: Regular rate and rhythm. Normal peripheral pulses. ABDOMEN: Soft, nontender, nondistended. EXTREMITIES: Right hip with dressing in place which is clean dry and intact, Neurovascular intact in the right lower extremity. Other extremities unremarkable. SKIN: Warm, dry, no rash. NEURO: NAlert and oriented x3. PSYCH: Normal mood and affect. Objective Data Vital Signs Vital Signs: Vital Signs - 24 hr 08/01/24 13:00 08/01/24 14:00 08/01/24 14:14 Temperature 97.5 F L 97.6 F Pulse Rate 93 84 Respiratory Rate 16 16 Blood Pressure 110/40 L 108/50 L Pulse Oximetry 96 96 Oxygen Delivery Room Air Fraction of Inspired Oxygen 08/01/24 16:36 08/01/24 20:00 08/01/24 20:36 Temperature 98.7 F 98.2 F Pulse Rate 88 76 Respiratory Rate 16 18 Blood Pressure 107/55 L 104/39 L Pulse Oximetry 99 99 99 Oxygen Delivery Room Air Fraction of Inspired Oxygen 08/01/24 21:24 08/01/24 23:48 08/02/24 04:00 Temperature 99.7 F H 97.4 F L Pulse Rate 78 85 Respiratory Rate 16 84 H Blood Pressure 119/48 L 113/58 L Pulse Oximetry 97 99 100 Oxygen Delivery Room Air Fraction of Inspired Oxygen 21 08/02/24 08:00 Temperature 97.9 F Pulse Rate 87 Respiratory Rate 16 Blood Pressure 100/46 L Pulse Oximetry 99 Oxygen Delivery Fraction of Inspired Oxygen Intake/Output Intake/Output: Intake & Output 07/30/24 07/31/24 08/01/24 08/02/24 23:59 23:59 23:59 23:59 Intake Total 1208.3 1390 Output Total 1000 400 Balance 208.3 990 Meds/Results Medications: Active Medications Generic Name Dose Route Start Last Admin Trade Name Freq PRN Reason Stop Dose Admin Hydrocodone Bitart/Acetaminophen 1 tab 08/01/24 10:51 Hydrocodone/Acetaminophen (*Crx) 5-325 Mg Tablet PO Q4H PRN Pain Rated 4-6 Hydrocodone Bitart/Acetaminophen 1 tab 08/01/24 10:51 08/02/24 09:07 Hydrocodone/Acetaminophen (*Crx) 7.5-325 Mg Tablet PO 1 tab Q4H PRN Administration Pain Rated 7-10 Hydromorphone HCl 1 mg 08/01/24 10:51 08/01/24 13:05 Hydromorphone Hcl Inj (*Crx) 1 Mg/Ml Syr IV PUSH 1 mg Q2H PRN Administration Breakthrough Pain Rated 7-10 or NPO Hydromorphone HCl 0.5 mg 08/01/24 10:51 Hydromorphone Hcl Inj (*Crx) 1 Mg/Ml Syr IV PUSH Q2H PRN Breakthrough Pain Rated 4-6 or NPO Hydroxyzine Pamoate 50 mg 08/01/24 10:51 Hydroxyzine Pamoate 25 Mg Capsule PO Q4H PRN Itching Lactated Ringer's 1,000 mls @ 30 mls/hr 07/31/24 18:35 08/01/24 19:56 Lr - Lactated Ringers Iv IV CONT Not Given .Q24H URBANO Lactated Ringer's 1,000 mls @ 30 mls/hr 08/01/24 08:10 08/01/24 19:56 Lr - Lactated Ringers Iv IV CONT Not Given .Q24H URBANO Lactated Ringer's 1,000 mls @ 30 mls/hr 08/01/24 08:10 08/01/24 19:56 Lr - Lactated Ringers Iv IV CONT Not Given .Q24H URBANO Ibuprofen 800 mg in 200 mls @ 400 mls/hr 08/01/24 10:51 Caldolor 800 Mg/200 Ml IVPB Q6H PRN Breakthrough Pain Rated 1-3 or NPO Lovastatin 20 mg 07/31/24 19:40 08/01/24 18:17 Lovastatin 20 Mg Tablet PO 20 mg QPM U[facility]ANO Administration Naloxone HCl 0.1 mg 08/01/24 10:51 Naloxone Hcl 0.4 Mg/Ml Vial IV PUSH Q2M PRN Opiate Reversal Ondansetron HCl 4 mg 08/01/24 08:07 Ondansetron Inj 4 Mg/2 Ml Vial IV PUSH ONCE PRN Nausea Ondansetron HCl 4 mg 08/01/24 10:51 Ondansetron Inj 4 Mg/2 Ml Vial IV PUSH Q4H PRN Nausea And Vomiting Perflutren Lipid Microsphere 0 ml 08/01/24 15:28 Perflutren Lipid Microspheres 1.5 Ml Vial Diluted To 10 Ml Total Volume IV PUSH 08/04/24 15:28 ONCE PRN adequate visualization Protocol Polyethylene Glycol 17 gm 08/01/24 09:00 08/02/24 09:01 Polyethylene Glycol 3350 17 Gm Powd.Pack PO 17 gm DAILY U[facility]ANO Administration Polyethylene Glycol 17 gm 08/02/24 09:00 08/02/24 09:10 Polyethylene Glycol 3350 17 Gm Powd.Pack PO 17 gm QAM U[facility] Administration Rivaroxaban 10 mg 08/01/24 17:00 08/01/24 18:17 Rivaroxaban 10 Mg Tablet PO 10 mg DAILY@17 [facility]O Administration Senna/Docusate Sodium 2 tab 08/01/24 17:00 08/02/24 09:01 Senna/Docusate Sodium Tablet PO 2 tab BID U[facility]ANO Administration Tramadol HCl 50 mg 08/01/24 10:51 Tramadol Hcl (*Crx) 50 Mg Tablet PO Q4H PRN Pain Rated 1-3 Radiology Results: ITS Impressions Chest X-Ray 07/31/24 15:52 IMPRESSION: 1. Mild pulmonary edema. Hip/Pelvis X-Ray 07/31/24 15:53 IMPRESSION: 1. Comminuted intertrochanteric fracture of proximal right femur. 2. Mild osteoarthritis of the hips. Intraoperative X-Ray 08/01/24 09:18 IMPRESSION: 1. Fluoroscopy utilized during reduction and internal fixation of a comminuted intratrochanteric fracture of the proximal right femur with expected appearance post fixation. See procedure note for further detail. Labs Labs: Laboratory Results - last 24 hr 08/02/24 06:13 WBC 11.3 H RBC 2.35 L Hgb 7.3 L D Hct 22.7 L MCV 96.6 MCH 31.1 MCHC 32.2 RDW 13.3 Plt Count 144 L MPV 11.4 H Immature Gran % (Auto) 0.3 Neut % (Auto) 78.1 H Lymph % (Auto) 13.0 L [place] % (Auto) 8.4 Eos % (Auto) 0.0 Baso % (Auto) 0.2 Lymph # (Auto) 1.47 [place] # (Auto) 1.0 H Eos # (Auto) 0.0 Baso # (Auto) 0.0 Abs Immat Gran (auto) 0.03 Absolute Neuts (auto) 8.9 H Absolute Nucleated RBC 0.000 Nucleated RBC % 0.0 % Immature Plt Fraction 6.1 Sodium 132 L Potassium 4.1 Chloride 101 Carbon Dioxide 26 Anion Gap 5 BUN 36 H Creatinine 0.96 Estim Creat Clear Calc 41 Estimated GFR 56 L Glucose 101 Calcium 8.5
--- NOTE | 2024-08-02 13:02 | PM.PNORT ---
Progress Note: A&P Assessment and Plan (1) Intertrochanteric fracture of right hip: Qualifiers: Encounter type: initial encounter Fracture type: closed Fracture alignment: nondisplaced Qualified Code(s): S72.144A - Nondisplaced intertrochanteric fracture of right femur, initial encounter for closed fracture Code(s): S72.141A - Displaced intertrochanteric fracture of right femur, initial encounter for closed fracture Status: Acute Assessment and Plan: S/P ORIF right intertrochanteric Fracture hip Up tid. Touch Weight bearing Subjective Subjective Date/Time Seen: 08/02/24 13:02 Post Op day: 1 Principal diagnosis: Right Intertrochanteric Fracture Fixation Review of Systems Review of Systems: All systems reviewed & are unremarkable except as noted in HPI and below Exam Narrative: Wiggles toes Dressing intact Objective Data Vital Signs Vital Signs: Vital Signs - 24 hr 08/01/24 14:00 08/01/24 14:14 08/01/24 16:36 Temperature 97.6 F 98.7 F Pulse Rate 84 88 Respiratory Rate 16 16 Blood Pressure 108/50 L 107/55 L Pulse Oximetry 96 99 Oxygen Delivery Room Air Fraction of Inspired Oxygen 08/01/24 20:00 08/01/24 20:36 08/01/24 21:24 Temperature 98.2 F Pulse Rate 76 Respiratory Rate 18 Blood Pressure 104/39 L Pulse Oximetry 99 99 97 Oxygen Delivery Room Air Room Air Fraction of Inspired Oxygen 21 08/01/24 23:48 08/02/24 04:00 08/02/24 08:00 Temperature 99.7 F H 97.4 F L 97.9 F Pulse Rate 78 85 87 Respiratory Rate 16 84 H 16 Blood Pressure 119/48 L 113/58 L 100/46 L Pulse Oximetry 99 100 99 Oxygen Delivery Fraction of Inspired Oxygen Intake/Output Intake/Output: Intake & Output 07/30/24 07/31/24 08/01/24 08/02/24 23:59 23:59 23:59 23:59 Intake Total 1208.3 1390 Output Total 1000 400 Balance 208.3 990 Meds/Results Medications: Active Medications Generic Name Dose Route Start Last Admin Trade Name Freq PRN Reason Stop Dose Admin Hydrocodone Bitart/Acetaminophen 1 tab 08/01/24 10:51 Hydrocodone/Acetaminophen (*Crx) 5-325 Mg Tablet PO Q4H PRN Pain Rated 4-6 Hydrocodone Bitart/Acetaminophen 1 tab 08/01/24 10:51 08/02/24 09:07 Hydrocodone/Acetaminophen (*Crx) 7.5-325 Mg Tablet PO 1 tab Q4H PRN Administration Pain Rated 7-10 Hydromorphone HCl 1 mg 08/01/24 10:51 08/01/24 13:05 Hydromorphone Hcl Inj (*Crx) 1 Mg/Ml Syr IV PUSH 1 mg Q2H PRN Administration Breakthrough Pain Rated 7-10 or NPO Hydromorphone HCl 0.5 mg 08/01/24 10:51 Hydromorphone Hcl Inj (*Crx) 1 Mg/Ml Syr IV PUSH Q2H PRN Breakthrough Pain Rated 4-6 or NPO Hydroxyzine Pamoate 50 mg 08/01/24 10:51 Hydroxyzine Pamoate 25 Mg Capsule PO Q4H PRN Itching Lactated Ringer's 1,000 mls @ 30 mls/hr 07/31/24 18:35 08/01/24 19:56 Lr - Lactated Ringers Iv IV CONT Not Given .Q24H URBANO Lactated Ringer's 1,000 mls @ 30 mls/hr 08/01/24 08:10 08/01/24 19:56 Lr - Lactated Ringers Iv IV CONT Not Given .Q24H U[facility]ANO Lactated Ringer's 1,000 mls @ 30 mls/hr 08/01/24 08:10 08/01/24 19:56 Lr - Lactated Ringers Iv IV CONT Not Given .Q24H U[facility]ANO Ibuprofen 800 mg in 200 mls @ 400 mls/hr 08/01/24 10:51 Caldolor 800 Mg/200 Ml IVPB Q6H PRN Breakthrough Pain Rated 1-3 or NPO Lovastatin 20 mg 07/31/24 19:40 08/01/24 18:17 Lovastatin 20 Mg Tablet PO 20 mg QPM U[facility]ANO Administration Naloxone HCl 0.1 mg 08/01/24 10:51 Naloxone Hcl 0.4 Mg/Ml Vial IV PUSH Q2M PRN Opiate Reversal Ondansetron HCl 4 mg 08/01/24 08:07 Ondansetron Inj 4 Mg/2 Ml Vial IV PUSH ONCE PRN Nausea Ondansetron HCl 4 mg 08/01/24 10:51 Ondansetron Inj 4 Mg/2 Ml Vial IV PUSH Q4H PRN Nausea And Vomiting Perflutren Lipid Microsphere 0 ml 08/01/24 15:28 Perflutren Lipid Microspheres 1.5 Ml Vial Diluted To 10 Ml Total Volume IV PUSH 08/04/24 15:28 ONCE PRN adequate visualization Protocol Polyethylene Glycol 17 gm 08/01/24 09:00 08/02/24 09:01 Polyethylene Glycol 3350 17 Gm Powd.Pack PO 17 gm DAILY U[facility]ANO Administration Polyethylene Glycol 17 gm 08/02/24 09:00 08/02/24 09:10 Polyethylene Glycol 3350 17 Gm Powd.Pack PO 17 gm QAM U[facility]ANO Administration Rivaroxaban 10 mg 08/01/24 17:00 08/01/24 18:17 Rivaroxaban 10 Mg Tablet PO 10 mg DAILY@17 U[facility]ANO Administration Senna/Docusate Sodium 2 tab 08/01/24 17:00 08/02/24 09:01 Senna/Docusate Sodium Tablet PO 2 tab BID U[facility]ANO Administration Tramadol HCl 50 mg 08/01/24 10:51 Tramadol Hcl (*Crx) 50 Mg Tablet PO Q4H PRN Pain Rated 1-3 Radiology Results: ITS Impressions Chest X-Ray 07/31/24 15:52 IMPRESSION: 1. Mild pulmonary edema. Hip/Pelvis X-Ray 07/31/24 15:53 IMPRESSION: 1. Comminuted intertrochanteric fracture of proximal right femur. 2. Mild osteoarthritis of the hips. Intraoperative X-Ray 08/01/24 09:18 IMPRESSION: 1. Fluoroscopy utilized during reduction and internal fixation of a comminuted intratrochanteric fracture of the proximal right femur with expected appearance post fixation. See procedure note for further detail. Labs Labs: Laboratory Results - last 24 hr 08/02/24 06:13 WBC 11.3 H RBC 2.35 L Hgb 7.3 L D Hct 22.7 L MCV 96.6 MCH 31.1 MCHC 32.2 RDW 13.3 Plt Count 144 L MPV 11.4 H Immature Gran % (Auto) 0.3 Neut % (Auto) 78.1 H Lymph % (Auto) 13.[address] [place] % (Auto) 8.4 Eos % (Auto) 0.0 Baso % (Auto) 0.2 Lymph # (Auto) 1.47 [place] # (Auto) 1.0 H Eos # (Auto) 0.0 Baso # (Auto) 0.0 Abs Immat Gran (auto) 0.03 Absolute Neuts (auto) 8.9 H Absolute Nucleated RBC 0.000 Nucleated RBC % 0.0 % Immature Plt Fraction 6.1 Sodium 132 L Potassium 4.1 Chloride 101 Carbon Dioxide 26 Anion Gap 5 BUN 36 H Creatinine 0.96 Estim Creat Clear Calc 41 Estimated GFR 56 L Glucose 101 Calcium 8.5
[2024-08-02 14:47] VITALS: BP 120/44; PULSE 96; RESP 16; TEMP 37.2; O2SAT 96
[2024-08-02 16:00] VITALS: BP 115/45; PULSE 94; RESP 16; TEMP 36.9; O2SAT 98
[2024-08-02] MEDS: RIVAROXABAN 10 MG TABLET PO (17:17)
[2024-08-02] MEDS: LOVASTATIN 20 MG TABLET PO (17:17)
[2024-08-03] VITALS (7 sets, daily range): BP systolic 117–142; BP diastolic 45–74; PULSE 89–102; RESP 16–18; TEMP 36.6–37.2; O2SAT 93–100
[2024-08-03] MEDS: HYDROcodone/acetaminophen (*CRX) 7.5-325 MG TABLET 1 TAB PO (02:07)
[2024-08-03 07:10] LABS: Basophils Percent Auto 0.1 % (0.2-1.2); Eosinophils Percent Auto 0.1 % (0-4.4); Immature Granulocyte Absolute 0.04 K/mm3 (0.00-0.031); Immature Granulocyte Percent A 0.5 % (0-0.5); Lymphocytes Absolute Auto 0.78 K/mm3 (0.9-3.2); Lymphocytes Percent Auto 10.7 % (18.3-44.2); Mean Corpuscular HGB Conc 31.7 g/dl (32-36); Mean Corpuscular Volume 97.7 fl (80-100); Mean Platelet Volume 11.3 fl (7.4-10.4); Monocytes Absolute Auto 0.9 K/mm3 (0.1-0.6); Monocytes Percent Auto 12.2 % (2.6-8.5); Neutrophils Absolute Auto 5.6 K/mm3 (1.3-6.7); Neutrophils Percent Auto 76.4 % (45.5-73.1); Platelet Count Result 121 k/mm3 (150-375); Red Blood Count 2.13 M/mm3 (4.2-5.4); Red Cell Distribution Width 13.6 % (11.5-14.5); White Blood Count 7.3 K/mm3 (4.5-10.0)
[2024-08-03 07:18] LABS: Hemoglobin 6.6 g/dL (12.0-15.0)
[2024-08-03 07:19] LABS: Alanine Aminotransferase 13 U/L (6-35); Albumin Level 2.8 g/dL (3.5-5.1); Alkaline Phosphatase 46 U/L (38-126); Anion Gap 4 mmol/L (4-12); Aspartate Amino Transferase 31 U/L (14-36); Bilirubin,Total 0.5 mg/dL (0.2-1.3); Blood Urea Nitrogen 27 mg/dL (7-17); Calcium 8.5 mg/dL (8.4-10.2); Carbon Dioxide 30 mmol/L (22-30); Chloride 103 mmol/L (98-107); Estimated CRCL calculation 52 ml/min; Estimated Glomerular Filt Rate > 60; Glucose 100 mg/dL (65-110); Hematocrit 20.8 % (37.0-47.0); Magnesium 2.3 mg/dL (1.6-2.3); Sodium 137 mmol/L (137-145)
[2024-08-03] MEDS: SENNA/DOCUSATE SODIUM TABLET 2 TAB PO ×2 (08:36→17:05)
[2024-08-03] MEDS: polyethylene glycoL 3350 17 GM POWD.PACK PO (08:36)
[2024-08-03] MEDS: SODIUM CHLORIDE 0.9% IV 250 ML 30 ML IV CONT (11:13)
[2024-08-03] MEDS: TUBING, BLOOD PLUM PUMP TUBING 1 EACH XX (11:13)
--- NOTE | 2024-08-03 12:35 | PM.IMPN ---
Progress Note: A&P Assessment and Plan (1) Intertrochanteric fracture of right hip: Qualifiers: Encounter type: initial encounter Fracture type: closed Fracture alignment: nondisplaced Qualified Code(s): S72.144A - Nondisplaced intertrochanteric fracture of right femur, initial encounter for closed fracture Code(s): S72.141A - Displaced intertrochanteric fracture of right femur, initial encounter for closed fracture Status: Acute Plan this is a 84=1 yo female who presents to the ED with f all. she was brinding in her trash bin when she slipped on ice falling on her right hip. she had no head injry or LOC. she attempted to get up but was unable to bear weight on the extremity. The patient ambulates without any assistive device at baseline. initial VS at presentation: stable . ed workup showed normal wbc, normal hb, normal chem panel. cxr with mild pulmonary edema. hip pelvis xray showed comminuted intratrochanteric fracture of the proximal right femur and mild osteoarthritirs of the hips. orthopedics consulted and underwent ORIF 08/01/2024. mild pulmoanry edema clinically not in distress. Echo pending Acute blood loss anemia hemoglobin down to 7.3 and further down to 6.6 today. Pre-surgical hemoglobin was 11. Will transfuse 1 unit of PRBC today. Recheck after transfusion. Continue to monitor. Murmur noted on exam examination echo pending DVT proph: on xarelto Diet: Heart healthy Code Status: Full code Subjective Date/time seen: 08/03/24 12:35 Interval history: Was confused on night had a full bladder needed straight catheterization felt better after that hemoglobin is down this a.m.. Review of Systems Review of Systems: All systems reviewed & are unremarkable except as noted in HPI and below Exam Narrative: GENERAL: Well-appearing, well-nourished, and in no acute distress. HEAD: Normocephalic, atraumatic. ENT: Mucous membranes moist. CHEST: Clear to auscultation. No respiratory distress. HEART: Regular rate and rhythm. Normal peripheral pulses. ABDOMEN: Soft, nontender, nondistended. EXTREMITIES: Right hip with dressing in place which is clean dry and intact, bruises around the surgical site noted which looks superficial Neurovascular intact in the right lower extremity. Other extremities unremarkable. SKIN: Warm, dry, no rash. NEURO: NAlert and oriented x3. PSYCH: Normal mood and affect. Objective Data Vital Signs Vital Signs: Vital Signs - 24 hr 08/02/24 14:47 08/02/24 16:00 08/03/24 00:00 Temperature 98.9 F 98.5 F 98.2 F Pulse Rate 96 94 97 Respiratory Rate 16 16 18 Blood Pressure 120/44 L 115/45 L 120/74 Pulse Oximetry 96 98 98 Oxygen Delivery 08/03/24 06:17 08/03/24 08:00 08/03/24 10:33 Temperature 98.8 F 97.8 F Pulse Rate 100 89 Respiratory Rate 18 18 Blood Pressure 142/56 H 124/54 L Pulse Oximetry 93 100 Oxygen Delivery Room Air 08/03/24 10:49 Temperature 98.1 F Pulse Rate 99 Respiratory Rate 18 Blood Pressure 131/54 L Pulse Oximetry 96 Oxygen Delivery Intake/Output Intake/Output: Intake & Output 07/31/24 08/01/24 08/02/24 08/03/24 23:59 23:59 23:59 23:59 Intake Total 1208.3 1630 240 Output Total 1000 402 915 Balance 208.3 1228 -675 Meds/Results Medications: Active Medications Generic Name Dose Route Start Last Admin Trade Name Freq PRN Reason Stop Dose Admin Hydrocodone Bitart/Acetaminophen 1 tab 08/01/24 10:51 Hydrocodone/Acetaminophen (*Crx) 5-325 Mg Tablet PO Q4H PRN Pain Rated 4-6 Hydrocodone Bitart/Acetaminophen 1 tab 08/01/24 10:51 08/03/24 02:07 Hydrocodone/Acetaminophen (*Crx) 7.5-325 Mg Tablet PO 1 tab Q4H PRN Administration Pain Rated 7-10 Hydromorphone HCl 1 mg 08/01/24 10:51 08/01/24 13:05 Hydromorphone Hcl Inj (*Crx) 1 Mg/Ml Syr IV PUSH 1 mg Q2H PRN Administration Breakthrough Pain Rated 7-10 or NPO Hydromorphone HCl 0.5 mg 08/01/24 10:51 Hydromorphone Hcl Inj (*Crx) 1 Mg/Ml Syr IV PUSH Q2H PRN Breakthrough Pain Rated 4-6 or NPO Hydroxyzine Pamoate 50 mg 08/01/24 10:51 Hydroxyzine Pamoate 25 Mg Capsule PO Q4H PRN Itching Lactated Ringer's 1,000 mls @ 30 mls/hr 07/31/24 18:35 08/01/24 19:56 Lr - Lactated Ringers Iv IV CONT Not Given .Q24H URBANO Lactated Ringer's 1,000 mls @ 30 mls/hr 08/01/24 08:10 08/01/24 19:56 Lr - Lactated Ringers Iv IV CONT Not Given .Q24H URBANO Lactated Ringer's 1,000 mls @ 30 mls/hr 08/01/24 08:10 08/01/24 19:56 Lr - Lactated Ringers Iv IV CONT Not Given .Q24H URBANO Ibuprofen 800 mg in 200 mls @ 400 mls/hr 08/01/24 10:51 Caldolor 800 Mg/200 Ml IVPB Q6H PRN Breakthrough Pain Rated 1-3 or NPO Sodium Chloride 250 mls @ 30 mls/hr 08/03/24 07:27 08/03/24 11:13 Normal Saline Iv IV CONT 08/03/24 15:46 30 mls/hr .Q8H20M STA Administration Lovastatin 20 mg 07/31/24 19:40 08/02/24 17:17 Lovastatin 20 Mg Tablet PO 20 mg QPM URBANO Administration Naloxone HCl 0.1 mg 08/01/24 10:51 Naloxone Hcl 0.4 Mg/Ml Vial IV PUSH Q2M PRN Opiate Reversal Ondansetron HCl 4 mg 08/01/24 08:07 Ondansetron Inj 4 Mg/2 Ml Vial IV PUSH ONCE PRN Nausea Ondansetron HCl 4 mg 08/01/24 10:51 Ondansetron Inj 4 Mg/2 Ml Vial IV PUSH Q4H PRN Nausea And Vomiting Perflutren Lipid Microsphere 0 ml 08/01/24 15:28 Perflutren Lipid Microspheres 1.5 Ml Vial Diluted To 10 Ml Total Volume IV PUSH 08/04/24 15:28 ONCE PRN adequate visualization Protocol Polyethylene Glycol 17 gm 08/01/24 09:00 08/03/24 08:36 Polyethylene Glycol 3350 17 Gm Powd.Pack PO 17 gm DAILY U[facility]ANO Administration Polyethylene Glycol 17 gm 08/02/24 09:00 08/03/24 08:37 Polyethylene Glycol 3350 17 Gm Powd.Pack PO Not Given QAM [facility] Rivaroxaban 10 mg 08/01/24 17:00 08/02/24 17:17 Rivaroxaban 10 Mg Tablet PO 10 mg DAILY@17 [facility] Administration Senna/Docusate Sodium 2 tab 08/01/24 17:00 08/03/24 08:36 Senna/Docusate Sodium Tablet PO 2 tab BID [facility] Administration Tramadol HCl 50 mg 08/01/24 10:51 Tramadol Hcl (*Crx) 50 Mg Tablet PO Q4H PRN Pain Rated 1-3 Radiology Results: ITS Impressions Chest X-Ray 07/31/24 15:52 IMPRESSION: 1. Mild pulmonary edema. Hip/Pelvis X-Ray 07/31/24 15:53 IMPRESSION: 1. Comminuted intertrochanteric fracture of proximal right femur. 2. Mild osteoarthritis of the hips. Intraoperative X-Ray 08/01/24 09:18 IMPRESSION: 1. Fluoroscopy utilized during reduction and internal fixation of a comminuted intratrochanteric fracture of the proximal right femur with expected appearance post fixation. See procedure note for further detail. Labs Labs: Laboratory Results - last 24 hr 08/01/24 08/03/24 06:47 06:51 WBC 7.3 RBC 2.13 L Hgb 6.6 L* Hct 20.8 L* MCV 97.7 MCH 31.0 MCHC 31.7 L RDW 13.6 Plt Count 121 L MPV 11.3 H Immature Gran % (Auto) 0.5 Neut % (Auto) 76.4 H Lymph % (Auto) 10.7 L [place] % (Auto) 12.2 H Eos % (Auto) 0.1 Baso % (Auto) 0.1 L Lymph # (Auto) 0.78 L [place] # (Auto) 0.9 H Eos # (Auto) 0.0 Baso # (Auto) 0.0 Abs Immat Gran (auto) 0.04 H Absolute Neuts (auto) 5.6 Absolute Nucleated RBC 0.000 Nucleated RBC % 0.0 % Immature Plt Fraction 6.0 Sodium 137 Potassium 4.0 Chloride 103 Carbon Dioxide 30 Anion Gap 4 BUN 27 H Creatinine 0.74 Estim Creat Clear Calc 52 Estimated GFR > 60 Glucose 100 Calcium 8.5 Magnesium 2.3 Total Bilirubin 0.5 AST 31 ALT 13 Alkaline Phosphatase 46 Total Protein 5.0 L Albumin 2.8 L Blood Type A Positive Antibody Screen Negative Crossmatch See Detail
[2024-08-03 14:16] LABS: Hematocrit 23.7 % (37.0-47.0); Hemoglobin 7.6 g/dL (12.0-15.0)
--- NOTE | 2024-08-03 14:39 | PCPTNOTE ---
RN reports to hold PT/OT for today per doctor. Patient has had low BP and received blood this morning. PT will continue to follow.
--- NOTE | 2024-08-03 14:40 | PCOTNOTE ---
Patient getting blood this morning, Patient unable to be seen in P.M. due to MD, wanting Patient held for the day due to low blood pressures. Will check back tomorrow.
[2024-08-03] MEDS: LOVASTATIN 20 MG TABLET PO (17:05)
[2024-08-04] VITALS: BP 132/56; PULSE 97; RESP 14; TEMP 37.2; O2SAT 99
--- NOTE | 2024-08-04 | ECHO_ITS ---
Patient Info Name: Susan Rhodes Age: 83 years : 1940 Gender: Female Ht: 68 in Wt: 143 lbs BSA: 1.76 m2 HR: 91 bpm BP: 117 / 40 mmHg Heart Rhythm: Sinus Rhythm Technical Quality: Good Exam Date: 08/04/2024 11:08 AM Exam Location: Echo Lab Patient Status: Inpatient Admit Date: 07/31/2024 Staff Ordering Physician: Nick Nicolas MD [employer] Member: Deya Salmon RDCS Attending Provider: Sukh Keller MD Exam Type: CA echo doppler color flow Study Info Indications R01.1 - Cardiac murmur, unspecified Complete two-dimensional, color flow and Doppler transthoracic echocardiogram is performed. Summary 1. Complete two-dimensional, color flow and Doppler transthoracic echocardiogram is performed. 2. Left ventricular chamber dimension is normal. 3. Left ventricular systolic function is hyperdynamic, estimated at >70%. 4. The left ventricular diastolic function is grade I diastolic dysfunction. 5. E/e' 11 is mildly elevated. 6. There is mild aortic valve sclerosis. 7. There is trace mitral valve regurgitation. 8. There is trace tricuspid valve regurgitation. 9. No pulmonary hypertension, estimated pulmonary arterial systolic pressure is 26 mmHg. Left Ventricle E/e' 11 is mildly elevated. Left ventricular chamber dimension is normal. Left ventricular systolic function is hyperdynamic, estimated at >70%. The left ventricular diastolic function is grade I diastolic dysfunction. Right Ventricle Right ventricular systolic function is normal and with normal TAPSE 2.5 cm. Right ventricular chamber dimension is normal. Left Atria Left atrial chamber dimension is normal. Right Atria Right atrial chamber dimension is normal. Aortic Valve The aortic valve is trileaflet. There is mild aortic valve sclerosis. There is no aortic valve stenosis. There is no aortic valve regurgitation. Pulmonic Valve There is no pulmonic regurgitation. Mitral Valve There is no mitral valve stenosis. There is trace mitral valve regurgitation. Tricuspid Valve There is trace tricuspid valve regurgitation. No pulmonary hypertension, estimated pulmonary arterial systolic pressure is 26 mmHg. Pericardium/Pleural There is no pericardial effusion. Inferior Vena Cava Normal inferior vena cava with >50% collapse upon inspiration consistent with normal right atrial pressure, 5 mmHg. Aorta The aortic root size at the sinus of Valsalva is normal. Left Ventricular Outflow Tract Name Value Normal LVOT 2D LVOT Diameter 2.0 cm LVOT Doppler LVOT Peak Gradient 14 mmHg LVOT Mean Gradient 8 mmHg LVOT VTI 36 cm LVOT VTI/AV VTI Ratio 1.0 LVOT Stroke Volume 119 ml LVOT CO 11.0 l/min LVOT CI 6.3 l/min/m2 Pulmonic Valve Name Value Normal RVOT Doppler RVOT Peak Gradient 3 mmHg PV Doppler PV Peak Gradient 5 mmHg Mitral Valve Name Value Normal MV Doppler MV Decel [place] 696 cm/s2 MV PHT 42 ms MV Area (PHT) 5.3 cm2 4.0-5.0 MV Diastolic Function MV E Peak Velocity 100 cm/s MV A Peak Velocity 114 cm/s MV E/A 0.9 MV Decel Time 144 ms MV Annular TDI MV E/e' (Septal) 13.3 <=8.0 MV E/e' (Lateral) 10.8 <=8.0 MV E/e' (Average) 12.0 Tricuspid Valve Name Value Normal TV Regurgitation Doppler TR Peak Velocity 232 cm/s TR Peak Gradient 21 mmHg Estimated PAP/RSVP RA Pressure 5 mmHg <=5 PA Systolic Pressure 26 mmHg <36 RV Systolic Pressure 26 mmHg <36 Aorta Name Value Normal Ascending Aorta Ao Root Diameter (MM) 3.1 cm Ao Root Diam Index (MM) 1.8 cm/m2 Aortic Valve Name Value Normal AV Doppler AV Peak Velocity 206 cm/s AV Peak Gradient 17 mmHg AV Mean Gradient 10 mmHg AV VTI 37 cm AV Area (Cont Eq VTI) 3.2 cm2 >=3.0 AV Area (Cont Eq [place]) 3.0 cm2 AV Regurgitation 2D LVOT Area 3.3 cm2 Ventricles Name Value Normal LV Dimensions 2D/MM IVS Diastolic Thickness (2D) 0.9 cm 0.6-1.0 LVID Diastole (2D) 4.3 cm 3.8-5.2 LVIW Diastolic Thickness (2D) 0.8 cm 0.6-0.9 LVID Systole (2D) 2.8 cm 2.2-3.5 LVOT Diameter 2.0 cm LV Mass (2D Cubed) 114.88 g 67.00-162.00 LV Mass Index (2D Cubed) 65 g/m2 43-95 Relative Wall Thickness (2D) 0.38 LV Fractional Shortening/Ejection Fraction 2D/MM LV Fractional Shortening (2D) 34 % 27-45 LV EF (2D Teicholz) 64 % 54-74 LV Diastolic Volume (4C MOD) 53 ml LV EF (4C MOD) 82 % LV Diastolic Volume (2C MOD) 57 ml LV EF (2C MOD) 83 % LV Diastolic Volume (BP MOD) 57 ml 46-106 LV Diastolic Volume Index (BP MOD) 33 ml/m2 29-61 LV Systolic Volume (BP MOD) 10 ml 14-42 LV Systolic Volume Index (BP MOD) 6 ml/m2 8-24 LV EF (BP MOD) 82 % 54-74 LV Diastolic Length (4C) 6.9 cm LV Systolic Length (4C) 5.1 cm LV Stroke Volume (4C MOD) 43 ml Atria Name Value Normal LA Dimensions LA Dimension (MM) 3.5 cm 2.7-3.8 LA Volume (4C A-L) 36 ml LA Volume (BP A-L) 45 ml RA Dimensions RA Area (4C) 11.6 cm2 <=18.0 Report Signatures
[2024-08-04 06:00] VITALS: BP 117/40; PULSE 91; RESP 12; TEMP 37.1; O2SAT 98
[2024-08-04 06:41] LABS: Basophils Percent Auto 0.6 % (0.2-1.2); Eosinophils Percent Auto 0.3 % (0-4.4); Hematocrit 22.9 % (37.0-47.0); Hemoglobin 7.4 g/dL (12.0-15.0); Immature Granulocyte Absolute 0.04 K/mm3 (0.00-0.031); Immature Granulocyte Percent A 0.6 % (0-0.5); Immature Platelet Fraction Pct 4.8 % (0.9-11.2); Lymphocytes Absolute Auto 1.03 K/mm3 (0.9-3.2); Lymphocytes Percent Auto 14.6 % (18.3-44.2); Mean Corpuscular HGB Conc 32.3 g/dl (32-36); Mean Corpuscular Hemoglobin 31.1 pg (26-34); Mean Corpuscular Volume 96.2 fl (80-100); Mean Platelet Volume 11.5 fl (7.4-10.4); Monocytes Absolute Auto 0.7 K/mm3 (0.1-0.6); Monocytes Percent Auto 9.5 % (2.6-8.5); Neutrophils Absolute Auto 5.3 K/mm3 (1.3-6.7); Neutrophils Percent Auto 74.4 % (45.5-73.1); Platelet Count Result 134 k/mm3 (150-375); Red Blood Count 2.38 M/mm3 (4.2-5.4); Red Cell Distribution Width 14.9 % (11.5-14.5); White Blood Count 7.1 K/mm3 (4.5-10.0)
[2024-08-04 06:49] LABS: Alanine Aminotransferase 13 U/L (6-35); Albumin Level 2.8 g/dL (3.5-5.1); Alkaline Phosphatase 47 U/L (38-126); Anion Gap 4 mmol/L (4-12); Aspartate Amino Transferase 29 U/L (14-36); Bilirubin,Total 0.6 mg/dL (0.2-1.3); Blood Urea Nitrogen 22 mg/dL (7-17); Calcium 8.5 mg/dL (8.4-10.2); Carbon Dioxide 28 mmol/L (22-30); Chloride 105 mmol/L (98-107); Estimated CRCL calculation 60 ml/min; Estimated Glomerular Filt Rate > 60; Glucose 97 mg/dL (65-110); Magnesium 2.3 mg/dL (1.6-2.3); Potassium 3.8 mmol/L (3.4-5.0); Sodium 137 mmol/L (137-145)
[2024-08-04] MEDS: polyethylene glycoL 3350 17 GM POWD.PACK PO (09:15)
[2024-08-04] MEDS: SENNA/DOCUSATE SODIUM TABLET 2 TAB PO ×2 (09:15→16:49)
--- NOTE | 2024-08-04 11:10 | PCPTNOTE ---
On 08/04/24, the student, LISA Mccrary, provided care and completed [facility] documentation on this patient. I have reviewed the student's documentation and agree with the findings.
--- NOTE | 2024-08-04 13:03 | PM.IMPN ---
Progress Note: A&P Assessment and Plan (1) Intertrochanteric fracture of right hip: Qualifiers: Encounter type: initial encounter Fracture type: closed Fracture alignment: nondisplaced Qualified Code(s): S72.144A - Nondisplaced intertrochanteric fracture of right femur, initial encounter for closed fracture Code(s): S72.141A - Displaced intertrochanteric fracture of right femur, initial encounter for closed fracture Status: Acute Plan this is a 84=1 yo female who presents to the ED with f all. she was brinding in her trash bin when she slipped on ice falling on her right hip. she had no head injry or LOC. she attempted to get up but was unable to bear weight on the extremity. The patient ambulates without any assistive device at baseline. initial VS at presentation: stable . ed workup showed normal wbc, normal hb, normal chem panel. cxr with mild pulmonary edema. hip pelvis xray showed comminuted intratrochanteric fracture of the proximal right femur and mild osteoarthritirs of the hips. orthopedics consulted and underwent ORIF 08/01/2024. mild pulmoanry edema clinically not in distress. Echo 08/04/2024 with EF more than 70% grade 1 diastolic dysfunction no significant valvular abnormality noted. Acute blood loss anemia hemoglobin down to 7.3 and further down to 6.6 08/03/2024 Pre-surgical hemoglobin was 11. Status post transfusion of 1 PRBC 08/03/2024. Recheck after transfusion up to 7.6. Continue to monitor. Recheck in a.m. have held Xarelto 08/03/2024. If H&H remained stable in a.m. resume back Xarelto Murmur noted on exam examination echo 08/04/2024 with EF more than 70% grade 1 diastolic dysfunction no significant valvular abnormality noted. DVT proph: on xarelto Diet: Heart healthy Code Status: Full code Subjective Date/time seen: 08/04/24 13:03 Interval history: Work with therapy this a.m.. Feels better. No nausea vomiting. Review of Systems Review of Systems: All systems reviewed & are unremarkable except as noted in HPI and below Exam Narrative: GENERAL: Well-appearing, well-nourished, and in no acute distress. HEAD: Normocephalic, atraumatic. ENT: Mucous membranes moist. CHEST: Clear to auscultation. No respiratory distress. HEART: Regular rate and rhythm. Normal peripheral pulses. ABDOMEN: Soft, nontender, nondistended. EXTREMITIES: Right hip with dressing in place which is clean dry and intact, bruises around the surgical site noted which looks superficial Neurovascular intact in the right lower extremity. Other extremities unremarkable. SKIN: Warm, dry, no rash. NEURO: NAlert and oriented x3. PSYCH: Normal mood and affect. Objective Data Vital Signs Vital Signs: Vital Signs - 24 hr 08/03/24 20:00 08/04/24 00:00 08/04/24 06:00 Temperature 98.9 F 99.0 F 98.8 F Pulse Rate 99 97 91 Respiratory Rate 16 14 12 Blood Pressure 117/45 L 132/56 L 117/40 L Pulse Oximetry 96 99 98 Oxygen Delivery 08/04/24 08:00 Temperature Pulse Rate Respiratory Rate Blood Pressure Pulse Oximetry Oxygen Delivery Room Air Intake/Output Intake/Output: Intake & Output 08/01/24 08/02/24 08/03/24 08/04/24 23:59 23:59 23:59 23:59 Intake Total 1208.3 1630 1370 740 Output Total 1000 402 916 250 Balance 208.3 1228 454 490 Meds/Results Medications: Active Medications Generic Name Dose Route Start Last Admin Trade Name Freq PRN Reason Stop Dose Admin Hydrocodone Bitart/Acetaminophen 1 tab 08/01/24 10:51 Hydrocodone/Acetaminophen (*Crx) 5-325 Mg Tablet PO Q4H PRN Pain Rated 4-6 Hydrocodone Bitart/Acetaminophen 1 tab 08/01/24 10:51 08/03/24 02:07 Hydrocodone/Acetaminophen (*Crx) 7.5-325 Mg Tablet PO 1 tab Q4H PRN Administration Pain Rated 7-10 Hydromorphone HCl 1 mg 08/01/24 10:51 08/01/24 13:05 Hydromorphone Hcl Inj (*Crx) 1 Mg/Ml Syr IV PUSH 1 mg Q2H PRN Administration Breakthrough Pain Rated 7-10 or NPO Hydromorphone HCl 0.5 mg 08/01/24 10:51 Hydromorphone Hcl Inj (*Crx) 1 Mg/Ml Syr IV PUSH Q2H PRN Breakthrough Pain Rated 4-6 or NPO Hydroxyzine Pamoate 50 mg 08/01/24 10:51 Hydroxyzine Pamoate 25 Mg Capsule PO Q4H PRN Itching Ibuprofen 800 mg in 200 mls @ 400 mls/hr 08/01/24 10:51 Caldolor 800 Mg/200 Ml IVPB Q6H PRN Breakthrough Pain Rated 1-3 or NPO Lovastatin 20 mg 07/31/24 19:40 08/03/24 17:05 Lovastatin 20 Mg Tablet PO 20 mg QPM URBANO Administration Naloxone HCl 0.1 mg 08/01/24 10:51 Naloxone Hcl 0.4 Mg/Ml Vial IV PUSH Q2M PRN Opiate Reversal Ondansetron HCl 4 mg 08/01/24 08:07 Ondansetron Inj 4 Mg/2 Ml Vial IV PUSH ONCE PRN Nausea Ondansetron HCl 4 mg 08/01/24 10:51 Ondansetron Inj 4 Mg/2 Ml Vial IV PUSH Q4H PRN Nausea And Vomiting Perflutren Lipid Microsphere 0 ml 08/01/24 15:28 Perflutren Lipid Microspheres 1.5 Ml Vial Diluted To 10 Ml Total Volume IV PUSH 08/04/24 15:28 ONCE PRN adequate visualization Protocol Polyethylene Glycol 17 gm 08/01/24 09:00 08/03/24 08:36 Polyethylene Glycol 3350 17 Gm Powd.Pack PO 17 gm DAILY URBANO Administration Polyethylene Glycol 17 gm 08/02/24 09:00 08/04/24 09:15 Polyethylene Glycol 3350 17 Gm Powd.Pack PO 17 gm QAM URBANO Administration Rivaroxaban 10 mg 08/01/24 17:00 08/02/24 17:17 Rivaroxaban 10 Mg Tablet PO 10 mg DAILY@17 URBANO Administration Senna/Docusate Sodium 2 tab 08/01/24 17:00 08/04/24 09:15 Senna/Docusate Sodium Tablet PO 2 tab BID URBANO Administration Tramadol HCl 50 mg 08/01/24 10:51 Tramadol Hcl (*Crx) 50 Mg Tablet PO Q4H PRN Pain Rated 1-3 Radiology Results: ITS Impressions Chest X-Ray 07/31/24 15:52 IMPRESSION: 1. Mild pulmonary edema. Hip/Pelvis X-Ray 07/31/24 15:53 IMPRESSION: 1. Comminuted intertrochanteric fracture of proximal right femur. 2. Mild osteoarthritis of the hips. Intraoperative X-Ray 08/01/24 09:18 IMPRESSION: 1. Fluoroscopy utilized during reduction and internal fixation of a comminuted intratrochanteric fracture of the proximal right femur with expected appearance post fixation. See procedure note for further detail. Labs Labs: Laboratory Results - last 24 hr 08/01/24 08/03/24 08/04/24 06:47 14:02 06:11 WBC 7.1 RBC 2.38 L Hgb 7.6 L 7.4 L Hct 23.7 L 22.9 L MCV 96.2 MCH 31.1 MCHC 32.3 RDW 14.9 H Plt Count 134 L MPV 11.5 H Immature Gran % (Auto) 0.6 H Neut % (Auto) 74.4 H Lymph % (Auto) 14.6 L [place] % (Auto) 9.5 H Eos % (Auto) 0.3 Baso % (Auto) 0.6 Lymph # (Auto) 1.03 [place] # (Auto) 0.7 H Eos # (Auto) 0.0 Baso # (Auto) 0.0 Abs Immat Gran (auto) 0.04 H Absolute Neuts (auto) 5.3 Absolute Nucleated RBC 0.000 Nucleated RBC % 0.0 % Immature Plt Fraction 4.8 Sodium 137 Potassium 3.8 Chloride 105 Carbon Dioxide 28 Anion Gap 4 BUN 22 H Creatinine 0.63 L Estim Creat Clear Calc 60 Estimated GFR > 60 Glucose 97 Calcium 8.5 Magnesium 2.3 Total Bilirubin 0.6 AST 29 ALT 13 Alkaline Phosphatase 47 Total Protein 5.0 L Albumin 2.8 L Crossmatch See Detail
[2024-08-04 14:00] VITALS: BP 120/45; PULSE 101; RESP 16; TEMP 36.7; O2SAT 96
[2024-08-04 14:05] VITALS: BP 131/49; PULSE 100; RESP 16; TEMP 36.6; O2SAT 100
[2024-08-04] MEDS: LOVASTATIN 20 MG TABLET PO (16:49)
[2024-08-04 21:01] VITALS: BP 126/50; PULSE 94; RESP 14; TEMP 37.2; O2SAT 99
[2024-08-05 05:41] VITALS: BP 126/46; PULSE 88; RESP 14; TEMP 37.1; O2SAT 98
[2024-08-05 06:43] LABS: Basophils Percent Auto 0.7 % (0.2-1.2); Eosinophils Percent Auto 0.5 % (0-4.4); Hematocrit 21.6 % (37.0-47.0); Immature Granulocyte Absolute 0.02 K/mm3 (0.00-0.031); Immature Granulocyte Percent A 0.4 % (0-0.5); Lymphocytes Absolute Auto 0.81 K/mm3 (0.9-3.2); Lymphocytes Percent Auto 14.4 % (18.3-44.2); Mean Corpuscular HGB Conc 31.9 g/dl (32-36); Mean Corpuscular Hemoglobin 30.9 pg (26-34); Mean Corpuscular Volume 96.9 fl (80-100); Mean Platelet Volume 10.8 fl (7.4-10.4); Monocytes Absolute Auto 0.6 K/mm3 (0.1-0.6); Monocytes Percent Auto 10.3 % (2.6-8.5); Neutrophils Absolute Auto 4.1 K/mm3 (1.3-6.7); Neutrophils Percent Auto 73.7 % (45.5-73.1); Platelet Count Result 160 k/mm3 (150-375); Red Blood Count 2.23 M/mm3 (4.2-5.4); Red Cell Distribution Width 14.6 % (11.5-14.5); White Blood Count 5.6 K/mm3 (4.5-10.0)
[2024-08-05 06:52] LABS: Hemoglobin 6.9 g/dL (12.0-15.0)
[2024-08-05 07:00] LABS: Alanine Aminotransferase 14 U/L (6-35); Albumin Level 2.8 g/dL (3.5-5.1); Alkaline Phosphatase 47 U/L (38-126); Anion Gap 6 mmol/L (4-12); Aspartate Amino Transferase 27 U/L (14-36); Bilirubin,Total 0.7 mg/dL (0.2-1.3); Blood Urea Nitrogen 21 mg/dL (7-17); Calcium 8.4 mg/dL (8.4-10.2); Carbon Dioxide 28 mmol/L (22-30); Chloride 105 mmol/L (98-107); Estimated CRCL calculation 62 ml/min; Estimated Glomerular Filt Rate > 60; Glucose 99 mg/dL (65-110); Magnesium 2.2 mg/dL (1.6-2.3); Potassium 3.6 mmol/L (3.4-5.0); Sodium 139 mmol/L (137-145)
[2024-08-05 09:00] VITALS: BP 80/48
[2024-08-05 11:00] LABS: Basophils Percent Auto 0.5 % (0.2-1.2); Eosinophils Percent Auto 0.7 % (0-4.4); Hematocrit 22.9 % (37.0-47.0); Hemoglobin 7.4 g/dL (12.0-15.0); Immature Granulocyte Absolute 0.02 K/mm3 (0.00-0.031); Immature Granulocyte Percent A 0.3 % (0-0.5); Lymphocytes Absolute Auto 0.61 K/mm3 (0.9-3.2); Lymphocytes Percent Auto 10.3 % (18.3-44.2); Mean Corpuscular HGB Conc 32.3 g/dl (32-36); Mean Corpuscular Hemoglobin 31.4 pg (26-34); Mean Platelet Volume 10.8 fl (7.4-10.4); Monocytes Absolute Auto 0.6 K/mm3 (0.1-0.6); Monocytes Percent Auto 10.8 % (2.6-8.5); Neutrophils Absolute Auto 4.6 K/mm3 (1.3-6.7); Neutrophils Percent Auto 77.4 % (45.5-73.1); Nucleated Red Blood Cells Perc 0.3 % (0.0-0.2); Platelet Count Result 174 k/mm3 (150-375); Red Blood Count 2.36 M/mm3 (4.2-5.4); Red Cell Distribution Width 14.6 % (11.5-14.5); White Blood Count 5.9 K/mm3 (4.5-10.0)
--- NOTE | 2024-08-05 13:49 | PCPTNOTE ---
On 08/05/24, the student, LISA Mccrary, provided care and completed [facility] documentation on this patient. I have reviewed the student's documentation and agree with the findings.
[2024-08-05 14:00] VITALS: BP 124/55; PULSE 89; RESP 18; TEMP 36.7; O2SAT 100
--- NOTE | 2024-08-05 16:55 | PM.IMPN ---
Progress Note: A&P Assessment and Plan (1) Intertrochanteric fracture of right hip: Qualifiers: Encounter type: initial encounter Fracture type: closed Fracture alignment: nondisplaced Qualified Code(s): S72.144A - Nondisplaced intertrochanteric fracture of right femur, initial encounter for closed fracture Code(s): S72.141A - Displaced intertrochanteric fracture of right femur, initial encounter for closed fracture Status: Acute Plan this is a [age] yo female who presents to the ED with f all. she was brinding in her trash bin when she slipped on ice falling on her right hip. she had no head injry or LOC. she attempted to get up but was unable to bear weight on the extremity. The patient ambulates without any assistive device at baseline. initial VS at presentation: stable . ed workup showed normal wbc, normal hb, normal chem panel. cxr with mild pulmonary edema. hip pelvis xray showed comminuted intratrochanteric fracture of the proximal right femur and mild osteoarthritirs of the hips. orthopedics consulted and underwent ORIF 08/01/2024. mild pulmoanry edema clinically not in distress. Echo 08/04/2024 with EF more than 70% grade 1 diastolic dysfunction no significant valvular abnormality noted. Acute blood loss anemia hemoglobin down to 7.3 and further down to 6.6 08/03/2024 Pre-surgical hemoglobin was 11. Status post transfusion of 1 PRBC 08/03/2024. Recheck after transfusion up to 7.6. Continue to monitor. Recheck in a.m. have held Xarelto 08/03/2024. If H&H remained stable in a.m. resume back Xarelto Murmur noted on exam examination echo 08/04/2024 with EF more than 70% grade 1 diastolic dysfunction no significant valvular abnormality noted. S/P Rt hip ORIF POD day #4 after patient slipped and fell on ice, today work with therapy this a.m.. Feels better. No nausea vomiting. however patient hgb is low today 6.9, upon her hgb was 11 and dropped after surgery 6.6 on 08/03/24 patient was give 1unit PRBC which increased to 7.6, repeat hgb after 6hr is 7.4, will monitor, holding her prophylactic anticoagulation for DVT. will monitor hgb if remains stable, will discharge to acute rehab in the morning. Code Status: Full code Subjective Date/time seen: 08/05/24 16:55 Interval history: S/P Rt hip ORIF POD day #4 after patient slipped and fell on ice, today work with therapy this a.m.. Feels better. No nausea vomiting. however patient hgb is low today 6.9, upon her hgb was 11 and dropped after surgery 6.6 on 08/03/24 patient was give 1unit PRBC which increased to 7.6, repeat hgb after 6hr is 7.4, will monitor, holding her prophylactic anticoagulation for DVT. will monitor hgb if remains stable, will discharge to acute rehab in the morning. Review of Systems Review of Systems: All systems reviewed & are unremarkable except as noted in HPI and below Exam Narrative: Patient is comfortable, NAD HEENT: eyes are clear and none icteric LUNGS:CTA HEART: RR S1S2 ABD: BS+, Soft and nontender Lower extremities: no edema SKIN: nonjaundiced Neuro: grossly intact. Objective Data Vital Signs Vital Signs: Vital Signs - 24 hr 08/04/24 21:01 08/05/24 05:41 08/05/24 08:00 Temperature 37.2 C 37.1 C Pulse Rate 94 88 Respiratory Rate 14 14 Blood Pressure 126/50 L 126/46 L Pulse Oximetry 99 98 Oxygen Delivery Room Air 08/05/24 09:00 08/05/24 14:00 Temperature 36.7 C Pulse Rate 89 Respiratory Rate 18 Blood Pressure 80/48 L 124/55 L Pulse Oximetry 100 Oxygen Delivery Intake/Output Intake/Output: Intake & Output 08/02/24 08/03/24 08/04/24 08/05/24 23:59 23:59 23:59 23:59 Intake Total 1630 1370 740 550 Output Total 402 916 550 Balance 1228 454 190 550 Meds/Results Medications: Active Medications Generic Name Dose Route Start Last Admin Trade Name Freq PRN Reason Stop Dose Admin Hydrocodone Bitart/Acetaminophen 1 tab 08/01/24 10:51 Hydrocodone/Acetaminophen (*Crx) 5-325 Mg Tablet PO Q4H PRN Pain Rated 4-6 Hydrocodone Bitart/Acetaminophen 1 tab 08/01/24 10:51 08/03/24 02:07 Hydrocodone/Acetaminophen (*Crx) 7.5-325 Mg Tablet PO 1 tab Q4H PRN Administration Pain Rated 7-10 Hydromorphone HCl 1 mg 08/01/24 10:51 08/01/24 13:05 Hydromorphone Hcl Inj (*Crx) 1 Mg/Ml Syr IV PUSH 1 mg Q2H PRN Administration Breakthrough Pain Rated 7-10 or NPO Hydromorphone HCl 0.5 mg 08/01/24 10:51 Hydromorphone Hcl Inj (*Crx) 1 Mg/Ml Syr IV PUSH Q2H PRN Breakthrough Pain Rated 4-6 or NPO Hydroxyzine Pamoate 50 mg 08/01/24 10:51 Hydroxyzine Pamoate 25 Mg Capsule PO Q4H PRN Itching Ibuprofen 800 mg in 200 mls @ 400 mls/hr 08/01/24 10:51 Caldolor 800 Mg/200 Ml IVPB Q6H PRN Breakthrough Pain Rated 1-3 or NPO Lovastatin 20 mg 07/31/24 19:40 08/04/24 16:49 Lovastatin 20 Mg Tablet PO 20 mg QPM URBANO Administration Naloxone HCl 0.1 mg 08/01/24 10:51 Naloxone Hcl 0.4 Mg/Ml Vial IV PUSH Q2M PRN Opiate Reversal Ondansetron HCl 4 mg 08/01/24 08:07 Ondansetron Inj 4 Mg/2 Ml Vial IV PUSH ONCE PRN Nausea Ondansetron HCl 4 mg 08/01/24 10:51 Ondansetron Inj 4 Mg/2 Ml Vial IV PUSH Q4H PRN Nausea And Vomiting Polyethylene Glycol 17 gm 08/01/24 09:00 08/03/24 08:36 Polyethylene Glycol 3350 17 Gm Powd.Pack PO 17 gm DAILY URBANO Administration Polyethylene Glycol 17 gm 08/02/24 09:00 08/05/24 07:25 Polyethylene Glycol 3350 17 Gm Powd.Pack PO Not Given QAM URBANO Rivaroxaban 10 mg 08/01/24 17:00 08/02/24 17:17 Rivaroxaban 10 Mg Tablet PO 10 mg DAILY@17 URBANO Administration Senna/Docusate Sodium 2 tab 08/01/24 17:00 08/05/24 07:24 Senna/Docusate Sodium Tablet PO Not Given BID URBANO Tramadol HCl 50 mg 08/01/24 10:51 Tramadol Hcl (*Crx) 50 Mg Tablet PO Q4H PRN Pain Rated 1-3 Radiology Results: ITS Impressions Chest X-Ray 07/31/24 15:52 IMPRESSION: 1. Mild pulmonary edema. Hip/Pelvis X-Ray 07/31/24 15:53 IMPRESSION: 1. Comminuted intertrochanteric fracture of proximal right femur. 2. Mild osteoarthritis of the hips. Intraoperative X-Ray 08/01/24 09:18 IMPRESSION: 1. Fluoroscopy utilized during reduction and internal fixation of a comminuted intratrochanteric fracture of the proximal right femur with expected appearance post fixation. See procedure note for further detail. Labs Labs: Laboratory Results - last 24 hr 08/05/24 08/05/24 06:29 10:49 WBC 5.6 5.9 RBC 2.23 L 2.36 L Hgb 6.9 L* 7.4 L Hct 21.6 L 22.9 L MCV 96.9 97.0 MCH 30.9 31.4 MCHC 31.9 L 32.3 RDW 14.6 H 14.6 H Plt Count 160 174 MPV 10.8 H 10.8 H Immature Gran % (Auto) 0.4 0.3 Neut % (Auto) 73.7 H 77.4 H Lymph % (Auto) 14.4 L 10.3 L [place] % (Auto) 10.3 H 10.8 H Eos % (Auto) 0.5 0.7 Baso % (Auto) 0.7 0.5 Lymph # (Auto) 0.81 L 0.61 L [place] # (Auto) 0.6 0.6 Eos # (Auto) 0.0 0.0 Baso # (Auto) 0.0 0.0 Abs Immat Gran (auto) 0.02 0.02 Absolute Neuts (auto) 4.1 4.6 Absolute Nucleated RBC 0.000 0.020 H Nucleated RBC % 0.0 0.3 H Sodium 139 Potassium 3.6 Chloride 105 Carbon Dioxide 28 Anion Gap 6 BUN 21 H Creatinine 0.61 L Estim Creat Clear Calc 62 Estimated GFR > 60 Glucose 99 Calcium 8.4 Magnesium 2.2 Total Bilirubin 0.7 AST 27 ALT 14 Alkaline Phosphatase 47 Total Protein 5.0 L Albumin 2.8 L Quality VTE Prophylaxis VTE prophylaxis: mechanical ordered
[2024-08-05] MEDS: LOVASTATIN 20 MG TABLET PO (17:08)
[2024-08-05] MEDS: SENNA/DOCUSATE SODIUM TABLET 2 TAB PO (17:08)
[2024-08-05 21:52] VITALS: BP 141/54; PULSE 102; RESP 14; TEMP 36.7; O2SAT 99
[2024-08-06 05:40] VITALS: BP 134/45; PULSE 84; RESP 13; TEMP 36.7; O2SAT 100
[2024-08-06 06:50] LABS: Hematocrit 22.8 % (37.0-47.0); Hemoglobin 7.1 g/dL (12.0-15.0); Mean Corpuscular HGB Conc 31.1 g/dl (32-36); Mean Corpuscular Hemoglobin 30.9 pg (26-34); Mean Corpuscular Volume 99.1 fl (80-100); Mean Platelet Volume 10.8 fl (7.4-10.4); Platelet Count Result 202 k/mm3 (150-375); Red Cell Distribution Width 14.4 % (11.5-14.5); White Blood Count 5.3 K/mm3 (4.5-10.0)
[2024-08-06 07:09] LABS: Anion Gap 5 mmol/L (4-12); Blood Urea Nitrogen 19 mg/dL (7-17); Calcium 8.6 mg/dL (8.4-10.2); Carbon Dioxide 29 mmol/L (22-30); Chloride 106 mmol/L (98-107); Estimated CRCL calculation 64 ml/min; Estimated Glomerular Filt Rate > 60; Glucose 91 mg/dL (65-110); Potassium 3.6 mmol/L (3.4-5.0); Sodium 140 mmol/L (137-145)
--- NOTE | 2024-08-06 07:19 | PM.PNORT ---
Progress Note: A&P Assessment and Plan (1) Intertrochanteric fracture of right hip: Qualifiers: Encounter type: initial encounter Fracture type: closed Fracture alignment: nondisplaced Qualified Code(s): S72.144A - Nondisplaced intertrochanteric fracture of right femur, initial encounter for closed fracture Code(s): S72.141A - Displaced intertrochanteric fracture of right femur, initial encounter for closed fracture Status: Acute Assessment and Plan: Patient underwent open reduction internal fixation right hip fracture. She has progressed slowly postoperatively. On dismissal, will see her back 2 weeks post surgery from an orthopedic standpoint dismissal medicines [place] for pain Xarelto for clotting. Subjective Subjective Date/Time Seen: 08/06/24 07:19 Post Op day: 5 Principal diagnosis: Intertrochanteric fracture Review of Systems Musculoskeletal: Musculoskeletal: Reports myalgias, Reports arthralgias and Reports joint swelling Neurologic: Reports abnormal gait Exam Narrative: Patient is neurologically intact she can wiggle her toes. She can walk with a walker. She has pain with manipulation. Objective Data Vital Signs Vital Signs: Vital Signs - 24 hr 08/05/24 08:00 08/05/24 09:00 08/05/24 14:00 Temperature 98.1 F Pulse Rate 89 Respiratory Rate 18 Blood Pressure 80/48 L 124/55 L Pulse Oximetry 100 Oxygen Delivery Room Air 08/05/24 21:52 08/06/24 05:40 Temperature 98.0 F 98.0 F Pulse Rate 102 H 84 Respiratory Rate 14 13 Blood Pressure 141/54 H 134/45 L Pulse Oximetry 99 100 Oxygen Delivery Intake/Output Intake/Output: Intake & Output 08/03/24 08/04/24 08/05/24 08/06/24 23:59 23:59 23:59 23:59 Intake Total 1370 740 790 400 Output Total 916 550 Balance 454 190 790 400 Meds/Results Medications: Active Medications Generic Name Dose Route Start Last Admin Trade Name Freq PRN Reason Stop Dose Admin Hydrocodone Bitart/Acetaminophen 1 tab 08/01/24 10:51 Hydrocodone/Acetaminophen (*Crx) 5-325 Mg Tablet PO Q4H PRN Pain Rated 4-6 Hydrocodone Bitart/Acetaminophen 1 tab 08/01/24 10:51 08/03/24 02:07 Hydrocodone/Acetaminophen (*Crx) 7.5-325 Mg Tablet PO 1 tab Q4H PRN Administration Pain Rated 7-10 Hydromorphone HCl 1 mg 08/01/24 10:51 08/01/24 13:05 Hydromorphone Hcl Inj (*Crx) 1 Mg/Ml Syr IV PUSH 1 mg Q2H PRN Administration Breakthrough Pain Rated 7-10 or NPO Hydromorphone HCl 0.5 mg 08/01/24 10:51 Hydromorphone Hcl Inj (*Crx) 1 Mg/Ml Syr IV PUSH Q2H PRN Breakthrough Pain Rated 4-6 or NPO Hydroxyzine Pamoate 50 mg 08/01/24 10:51 Hydroxyzine Pamoate 25 Mg Capsule PO Q4H PRN Itching Ibuprofen 800 mg in 200 mls @ 400 mls/hr 08/01/24 10:51 Caldolor 800 Mg/200 Ml IVPB Q6H PRN Breakthrough Pain Rated 1-3 or NPO Lovastatin 20 mg 07/31/24 19:40 08/05/24 17:08 Lovastatin 20 Mg Tablet PO 20 mg QPM URBANO Administration Naloxone HCl 0.1 mg 08/01/24 10:51 Naloxone Hcl 0.4 Mg/Ml Vial IV PUSH Q2M PRN Opiate Reversal Ondansetron HCl 4 mg 08/01/24 08:07 Ondansetron Inj 4 Mg/2 Ml Vial IV PUSH ONCE PRN Nausea Ondansetron HCl 4 mg 08/01/24 10:51 Ondansetron Inj 4 Mg/2 Ml Vial IV PUSH Q4H PRN Nausea And Vomiting Polyethylene Glycol 17 gm 08/01/24 09:00 08/03/24 08:36 Polyethylene Glycol 3350 17 Gm Powd.Pack PO 17 gm DAILY URBANO Administration Polyethylene Glycol 17 gm 08/02/24 09:00 08/05/24 07:25 Polyethylene Glycol 3350 17 Gm Powd.Pack PO Not Given QAM URBANO Rivaroxaban 10 mg 08/01/24 17:00 08/02/24 17:17 Rivaroxaban 10 Mg Tablet PO 10 mg DAILY@17 URBANO Administration Senna/Docusate Sodium 2 tab 08/01/24 17:00 08/05/24 17:08 Senna/Docusate Sodium Tablet PO 2 tab BID URBANO Administration Tramadol HCl 50 mg 08/01/24 10:51 Tramadol Hcl (*Crx) 50 Mg Tablet PO Q4H PRN Pain Rated 1-3 Radiology Results: ITS Impressions Chest X-Ray 07/31/24 15:52 IMPRESSION: 1. Mild pulmonary edema. Hip/Pelvis X-Ray 07/31/24 15:53 IMPRESSION: 1. Comminuted intertrochanteric fracture of proximal right femur. 2. Mild osteoarthritis of the hips. Intraoperative X-Ray 08/01/24 09:18 IMPRESSION: 1. Fluoroscopy utilized during reduction and internal fixation of a comminuted intratrochanteric fracture of the proximal right femur with expected appearance post fixation. See procedure note for further detail. Labs Labs: Laboratory Results - last 24 hr 08/05/24 08/06/24 10:49 06:33 WBC 5.9 5.3 RBC 2.36 L 2.30 L Hgb 7.4 L 7.1 L Hct 22.9 L 22.8 L MCV 97.0 99.1 MCH 31.4 30.9 MCHC 32.3 31.1 L RDW 14.6 H 14.4 Plt Count 174 202 MPV 10.8 H 10.8 H Immature Gran % (Auto) 0.3 Neut % (Auto) 77.4 H Lymph % (Auto) 10.3 L [place] % (Auto) 10.8 H Eos % (Auto) 0.7 Baso % (Auto) 0.5 Lymph # (Auto) 0.61 L [place] # (Auto) 0.6 Eos # (Auto) 0.0 Baso # (Auto) 0.0 Abs Immat Gran (auto) 0.02 Absolute Neuts (auto) 4.6 Absolute Nucleated RBC 0.020 H Nucleated RBC % 0.3 H Sodium 140 Potassium 3.6 Chloride 106 Carbon Dioxide 29 Anion Gap 5 BUN 19 H Creatinine 0.59 L Estim Creat Clear Calc 64 Estimated GFR > 60 Glucose 91 Calcium 8.6 Magnesium 2.0
--- NOTE | 2024-08-06 07:21 | PM.DS ---
DS: Admitting Diagnosis Discharge Date 08/06/24 Admitting Diagnosis Iintertrochanteric Fracture DS: Discharge Diagnosis Discharge Diagnosis (1) Intertrochanteric fracture of right hip: Qualifiers: Encounter type: initial encounter Fracture type: closed Fracture alignment: nondisplaced Qualified Code(s): S72.144A - Nondisplaced intertrochanteric fracture of right femur, initial encounter for closed fracture Code(s): S72.141A - Displaced intertrochanteric fracture of right femur, initial encounter for closed fracture Status: Acute DS: Summary Hospital Course Hospital Course: Patient progressed slowly postoperatively however is ready for discharge at this time. She may be partial weight-bearing on her leg. Status at Discharge Functional status at discharge: uses cane/walker Time Spent with Patient Time attestation: Total time spent providing and/or coordinating discharge services: DS: Data Data Completed and Pending Labs on day of discharge: Labs from last 24 hours 08/06/24 08/05/24 06:33 10:49 WBC 5.3 5.9 RBC 2.30 L 2.36 L Hgb 7.1 L 7.4 L Hct 22.8 L 22.9 L MCV 99.1 97.0 MCH 30.9 31.4 MCHC 31.1 L 32.3 RDW 14.4 14.6 H Plt Count 202 174 MPV 10.8 H 10.8 H Immature Gran % (Auto) 0.3 Neut % (Auto) 77.4 H Lymph % (Auto) 10.3 L [place] % (Auto) 10.8 H Eos % (Auto) 0.7 Baso % (Auto) 0.5 Lymph # (Auto) 0.61 L [place] # (Auto) 0.6 Eos # (Auto) 0.0 Baso # (Auto) 0.0 Abs Immat Gran (auto) 0.02 Absolute Neuts (auto) 4.6 Absolute Nucleated RBC 0.020 H Nucleated RBC % 0.3 H Sodium 140 Potassium 3.6 Chloride 106 Carbon Dioxide 29 Anion Gap 5 BUN 19 H Creatinine 0.59 L Estim Creat Clear Calc 64 Estimated GFR > 60 Glucose 91 Calcium 8.6 Magnesium 2.0 Discharge Plan Discharge Consulting providers: Tony Perez Activity: follow weight bearing status Diet: regular Patient Instructions: Rivaroxaban (By mouth) Patient Language: Persian Follow-up/Referrals: Tony Perez MD [Physician] - Discharge Medications: New hydrocodone-acetaminophen 5-325 mg tablet 1 tablet PO Q4H PRN (Reason: pain) Qty: 30 0RF Xarelto 10 mg tablet 10 mg PO DAILY Qty: 14 0RF Rx Instructions: for 14 days No Action One Daily Womens 50 Plus 0.4 mg tablet 1 tablet PO DAILY lovastatin 40 mg tablet 20 mg PO QPM Qty: 90 3RF Pepcid Complete 10-800-165 mg tablet,chewable 1 tablet PO DAILY PRN (Reason: indigestion) polyethylene glycol 3350 [Miralax] 17 gram Powder In Packet 17 g PO DAILY zolpidem 10 mg tablet 5 mg PO . q.h.s. PRN (Reason: insomnia) cholecalciferol (vitamin D3) 125 mcg (5,000 unit) capsule 125 mcg PO DAILY Date of admission: 07/31/24 17:35 Primary Care Provider: Enriqueta Lazaro Admitting Provider: Sukh Keller Attending physician on admission: Sukh Keller Condition: Stable
[2024-08-06] MEDS: polyethylene glycoL 3350 17 GM POWD.PACK PO (09:13)
--- NOTE | 2024-08-06 10:07 | PCPTNOTE ---
On 08/06/24, the student, LISA Mccrary, provided care and completed [facility] documentation on this patient. I have reviewed the student's documentation and agree with the findings.
[2024-08-06 14:00] VITALS: BP 139/60; PULSE 86; RESP 16; TEMP 36.8; O2SAT 100
--- NOTE | 2024-08-06 15:06 | PM.IMPN ---
Progress Note: A&P Assessment and Plan (1) Intertrochanteric fracture of right hip: Qualifiers: Encounter type: initial encounter Fracture type: closed Fracture alignment: nondisplaced Qualified Code(s): S72.144A - Nondisplaced intertrochanteric fracture of right femur, initial encounter for closed fracture Code(s): S72.141A - Displaced intertrochanteric fracture of right femur, initial encounter for closed fracture Status: Acute (2) Closed intertrochanteric fracture of right hip: Code(s): S72.141A - Displaced intertrochanteric fracture of right femur, initial encounter for closed fracture Status: Acute Plan S/P Rt hip ORIF POD day # 5 after patient slipped and fell on ice, today work with therapy this a.m.. Feels better. No nausea vomiting. however patient hgb is low today 6.9, upon her hgb was 11 and dropped after surgery 6.6 on 08/03/24 patient was give 1unit PRBC which increased to 7.6, repeat hgb after 6hr is 7.4, will monitor, holding her prophylactic anticoagulation for DVT. today 7.1 there is no obvious bleeding, will discharge to acute rehab today. Subjective Date/time seen: 08/06/24 15:06 Interval history: S/P Rt hip ORIF POD day # 5after patient slipped and fell on ice, today work with therapy this a.m.. Feels better. No nausea vomiting. however patient hgb is low today 6.9, upon her hgb was 11 and dropped after surgery 6.6 on 08/03/24 patient was give 1unit PRBC which increased to 7.6, repeat hgb after 6hr is 7.4, will monitor, holding her prophylactic anticoagulation for DVT. today 7.1 there is no obvious bleeding, will discharge to acute rehab today. Objective Data Vital Signs Vital Signs: Vital Signs - 24 hr 08/05/24 21:52 08/06/24 05:40 08/06/24 08:00 Temperature 36.7 C 36.7 C Pulse Rate 102 H 84 Respiratory Rate 14 13 Blood Pressure 141/54 H 134/45 L Pulse Oximetry 99 100 Oxygen Delivery Room Air 08/06/24 14:00 Temperature 36.8 C Pulse Rate 86 Respiratory Rate 16 Blood Pressure 139/60 Pulse Oximetry 100 Oxygen Delivery Intake/Output Intake/Output: Intake & Output 08/03/24 08/04/24 08/05/24 08/06/24 23:59 23:59 23:59 23:59 Intake Total 1370 548 479 0400 Output Total 916 550 Balance 454 003 435 0719 Meds/Results Medications: Active Medications Generic Name Dose Route Start Last Admin Trade Name Freq PRN Reason Stop Dose Admin Hydrocodone Bitart/Acetaminophen 1 tab 08/01/24 10:51 Hydrocodone/Acetaminophen (*Crx) 5-325 Mg Tablet PO Q4H PRN Pain Rated 4-6 Hydrocodone Bitart/Acetaminophen 1 tab 08/01/24 10:51 08/03/24 02:07 Hydrocodone/Acetaminophen (*Crx) 7.5-325 Mg Tablet PO 1 tab Q4H PRN Administration Pain Rated 7-10 Hydromorphone HCl 1 mg 08/01/24 10:51 08/01/24 13:05 Hydromorphone Hcl Inj (*Crx) 1 Mg/Ml Syr IV PUSH 1 mg Q2H PRN Administration Breakthrough Pain Rated 7-10 or NPO Hydromorphone HCl 0.5 mg 08/01/24 10:51 Hydromorphone Hcl Inj (*Crx) 1 Mg/Ml Syr IV PUSH Q2H PRN Breakthrough Pain Rated 4-6 or NPO Hydroxyzine Pamoate 50 mg 08/01/24 10:51 Hydroxyzine Pamoate 25 Mg Capsule PO Q4H PRN Itching Ibuprofen 800 mg in 200 mls @ 400 mls/hr 08/01/24 10:51 Caldolor 800 Mg/200 Ml IVPB Q6H PRN Breakthrough Pain Rated 1-3 or NPO Lovastatin 20 mg 07/31/24 19:40 08/05/24 17:08 Lovastatin 20 Mg Tablet PO 20 mg QPM URBANO Administration Naloxone HCl 0.1 mg 08/01/24 10:51 Naloxone Hcl 0.4 Mg/Ml Vial IV PUSH Q2M PRN Opiate Reversal Ondansetron HCl 4 mg 08/01/24 08:07 Ondansetron Inj 4 Mg/2 Ml Vial IV PUSH ONCE PRN Nausea Ondansetron HCl 4 mg 08/01/24 10:51 Ondansetron Inj 4 Mg/2 Ml Vial IV PUSH Q4H PRN Nausea And Vomiting Polyethylene Glycol 17 gm 02/22/25 09:00 08/03/24 08:36 Polyethylene Glycol 3350 17 Gm Powd.Pack PO 17 gm DAILY URBANO Administration Polyethylene Glycol 17 gm 08/02/24 09:00 08/06/24 09:13 Polyethylene Glycol 3350 17 Gm Powd.Pack PO 17 gm QAM URBANO Administration Rivaroxaban 10 mg 08/01/24 17:00 08/02/24 17:17 Rivaroxaban 10 Mg Tablet PO 10 mg DAILY@17 URBANO Administration Senna/Docusate Sodium 2 tab 08/01/24 17:00 08/06/24 09:13 Senna/Docusate Sodium Tablet PO Not Given BID URBANO Tramadol HCl 50 mg 08/01/24 10:51 Tramadol Hcl (*Crx) 50 Mg Tablet PO Q4H PRN Pain Rated 1-3 Radiology Results: ITS Impressions Chest X-Ray 07/31/24 15:52 IMPRESSION: 1. Mild pulmonary edema. Hip/Pelvis X-Ray 07/31/24 15:53 IMPRESSION: 1. Comminuted intertrochanteric fracture of proximal right femur. 2. Mild osteoarthritis of the hips. Intraoperative X-Ray 08/01/24 09:18 IMPRESSION: 1. Fluoroscopy utilized during reduction and internal fixation of a comminuted intratrochanteric fracture of the proximal right femur with expected appearance post fixation. See procedure note for further detail. Labs Labs: Laboratory Results - last 24 hr 08/06/24 06:33 WBC 5.3 RBC 2.30 L Hgb 7.1 L Hct 22.8 L MCV 99.1 MCH 30.9 MCHC 31.1 L RDW 14.4 Plt Count 202 MPV 10.8 H Sodium 140 Potassium 3.6 Chloride 106 Carbon Dioxide 29 Anion Gap 5 BUN 19 H Creatinine 0.59 L Estim Creat Clear Calc 64 Estimated GFR > 60 Glucose 91 Calcium 8.6 Magnesium 2.0
== END 2024-08-06 15:30 | DRG 482 ==
LOC: ANHED 15:55 → ANH3MEDSUR 17:20
PROVIDERS: Family Medicine; Internal Medicine; Student in an Organized Health Care Education/Training Program; Admitting Provider Internal Medicine; Emergency Provider Emergency Medicine; PCP Nurse Practitioner Family; Visit Provider Orthopaedic Surgery
PROC: 0QS634Z Reposition Right Upper Femur with Internal Fixation Device, Percutaneous Approach (ICD-10-PCS; principal; 2024-08-01 08:00)
DX: S72.141A Displaced intertrochanteric fracture of right femur, initial encounter for closed fracture (principal); W00.9XXA Unspecified fall due to ice and snow, initial encounter; E78.5 Hyperlipidemia, unspecified; E55.9 Vitamin D deficiency, unspecified; K21.9 Gastro-esophageal reflux disease without esophagitis; M85.80 Other specified disorders of bone density and structure, unspecified site; Z98.1 Arthrodesis status; Z96.651 Presence of right artificial knee joint
CPT/HCPCS: 36415; 36430; 71045; 73502; 80048; 80053; 83735; 83880; 85014; 85018; 85025; 85027; 85055; 85610; 85730; 86850; 86900; 86901; 86920; 93005; 93306; 96374; 96375; 96376; 97110; 97116; 97161; 97165; 97530; 97535; 99199; 99285; A9270; C1713; G0378; J0690; J1100; J1171; J2003; J2270; J2371; J2405; J2704; J3010; J7030; J7050; J7120; P9016

== ENCOUNTER 2025-03-19 14:15 | Outpatient (CLI) | payer MEDICARE, BC, SELFPAY ==
[2025-03-19 14:45] LABS: Add Urine Microscopic? YES; Appearance Urine Cloudy (Clear); Glucose Urine UA Negative (Negative); Leukocyte Esterase Ur 2+ LEU/UL (Negative); Nitrate Urine Negative (Negative); Non Pathogenic Casts 0-2; Specific Grav Ur 1.027 (1.001-1.035)
== END 2025-03-19 14:16 | disposition home or self-care (01) ==
PROVIDERS: PCP Nurse Practitioner Family; Visit Provider Nurse Practitioner Family
DX: R82.90 Unspecified abnormal findings in urine (principal)
CPT/HCPCS: 81001; 87077; 87086; 87186

== ENCOUNTER 2025-05-12 11:53 | Outpatient (CLI) | payer MEDICARE, BC, SELFPAY ==
[2025-05-12 12:19] LABS: Add Urine Microscopic? YES; Appearance Urine Clear (Clear); Glucose Urine UA Negative (Negative); Hematocrit 39.7 % (37.0-47.0); Hemoglobin 13.0 g/dL (12.0-15.0); Immature Granulocyte Percent A 0.2 % (0-0.5); Leukocyte Esterase Ur Trace LEU/UL (Negative); Lymphocytes Absolute Auto 1.55 K/mm3 (0.9-3.2); Mean Corpuscular HGB Conc 32.7 g/dl (32-36); Mean Corpuscular Hemoglobin 31.9 pg (26-34); Mean Corpuscular Volume 97.3 fl (80-100); Nitrate Urine Negative (Negative); Nucleated Red Blood Cells Absolute Auto 0.000 K/mm3 (0.0-0.012); Nucleated Red Blood Cells Perc 0.0 % (0.0-0.2); Platelet Count Result 196 k/mm3 (150-375); Red Blood Count 4.08 M/mm3 (4.2-5.4); Specific Grav Ur 1.015 (1.001-1.035); White Blood Count 5.9 K/mm3 (4.5-10.0)
[2025-05-12 12:36] LABS: Alanine Aminotransferase 18 U/L (6-35); Albumin Level 4.1 g/dL (3.5-5.1); Alkaline Phosphatase 67 U/L (38-126); Anion Gap 0 mmol/L (4-12); Aspartate Amino Transferase 31 U/L (14-36); Bilirubin,Total 0.5 mg/dL (0.2-1.3); Blood Urea Nitrogen 25 mg/dL (7-17); Calcium 10.1 mg/dL (8.4-10.2); Carbon Dioxide 31 mmol/L (22-30); Chloride 106 mmol/L (98-107); Cholesterol 177 mg/dL (0-200); Estimated Glomerular Filt Rate > 60; Glucose 85 mg/dL (65-110); HDL Direct 101 mg/dL; Potassium 4.5 mmol/L (3.4-5.0); Sodium 137 mmol/L (137-145); Total Protein 6.8 g/dL (6.3-8.2); Triglycerides 56 mg/dL (<150)
[2025-05-12 12:58] LABS: Thyroid Stimulating Hormone Reflex 0.839 uIU/mL (0.465-4.68)
--- OUTSIDE RECORDS SUMMARY | 2025-05-12 13:21 | XMS_ITS | Clinical Summary ---
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 Gender Identity Not on file Sexual Orientation Not on file Last Filed Vital Signs Vital Sign Reading Time Taken Comments Blood Pressure 120/72 12/27/2011 1:02 PM CDT Pulse 80 12/27/2011 1:02 PM CDT Temperature - - Respiratory Rate - - Oxygen Saturation - - Inhaled Oxygen Concentration - - Weight 84.8 kg (187 lb) 01/09/2012 7:43 AM CDT Height 175.3 cm (5' 9) 12/27/2011 1:02 PM CDT Body Mass Index 27.62 12/27/2011 1:02 PM CDT Plan of Treatment Health Maintenance Due Date Last Done Comments DTAP/TDAP/TD VACCINES (1 - Tdap) 1961 PNEUMOCOCCAL VACCINE 50+ YEARS (1 of 1 - PCV) 11/10/18 93 ZOSTER VACCINE (1 of 2) 1992 OSTEOPOROSIS SCREENING 11/11/2007 RSV VACCINE (60+ or ) (1 - 1-dose 75+ series) 2017 INFLUENZA VACCINE (#1) 2025 Insurance MEDICARE PART A AND B [place] OPEN ACCESS Advance Directives For more information, please contact: [phone] * Full Code (Latest Code Status on File) Date Activated Date Inactivated Comments 01/09/2012 9:26 AM 01/10/2012 2:12 AM Care Teams Neuropsychology Medical Consultant Relationship Specialty Start Date End Date Tony Rich MD [address] [place] [address] PCP - General Family Practice 12/27/11
--- OUTSIDE RECORDS SUMMARY | 2025-05-12 13:21 | XMS_ITS | Clinical Summary ---
Author Organization [facility] Address [address] [place] [address] Care Team Providers Care Poultry Eviscerator Name Role Phone Tony Rich MD Primary Care Provider [phone] Source Comments [facility],non-owned Affiliates and Associated Physician Practices is amultiple site organization consisting of ambulatory clinics and hospital sitesin [place], [place] and [place]. This disclosure is being madepursuant to the Care Everywhere program and may not contain all information available regarding this patient. Last updated 18.[facility] Allergies Active Allergy Reactions Criticality Noted Date Comments Codeine 01/25/2010 Nausea and vomiting Medications * Be aware that medications may not be up to date on this document. Alwaysverify current medications with the patient. lovastatin (MEVACOR) 40 MG tablet Take 40 mg by mouth at bedtime. Active docusate sodium (COLACE) 100 MG capsule Take 1 Cap by mouth 2 times daily. 60 Cap 5 01/25/2010 Active ibuprofen (MOTRIN) 600 MG tablet Take 1 Tab by mouth every 6 hours as needed for Pain. 60 Tab 0 01/25/2010 Active propoxyphene napsylate-acetam inophen (DARVOCET N-100) 100-650 MG tablet Take 1 Tab by mouth every 4 hours as needed for Pain. 40 Tab 0 01/25/2010 Active Social History Tobacco Use Types Packs/Day Years Used Date Smoking Tobacco: Never Comments Unknown Sex and Gender Information Value Date Recorded Sex Assigned at Not on file Legal Sex Female 11:50 AM CDT Gender Identity Not on file Sexual Orientation [...] 10:45 AM CDT Height 172.7 cm (5' 8) 01/25/2010 10:45 AM CDT Body Mass Index 27.37 01/25/2010 10:45 AM CDT Plan of Treatment Health Maintenance Due Date Last Done Comments BONE DENSITY TESTING 1942 DTAP/TDAP/TD VACCINES (1 - Tdap) 1961 PNEUMOCOCCAL VACCINE 50+ (1 of 1 - PCV) 1992 ZOSTER VACCINE (1 of 2) 1992 Respiratory Syncytial Virus (RSV) Vaccine Pt: or over 60 yrs (1 - 1-dose 75+ series) 2017 DEPRESSION SCREENING 06/10/2024 COVID-19 VACCINE (1 - 2024-2 6 season) 2025 INFLUENZA VACCINE (#1) 2025 HEPATITIS B VACCINE Aged Out No longe r eligible based on patient's age to complete this topic HIB VACCINE Aged Out No longer eligi ble based on patient's age to complete this topic HPV VACCINE Aged Out No longer eligi ble based on patient's age to complete this topic MENINGOCOCCAL (Group B) VACC INE SHARED DECISION-MAKING Aged Out No longer eligibl e based on patient's age to complete this topic MENINGOCOCCAL GROUPS A/C/Y/W VACCINE Aged Out No longer eligible b ased on patient's age to complete this topic Insurance MEDICARE Care Teams Poultry Eviscerator Relationship Specialty Start Date End Date Tony Rich MD [address] [place] [address] PCP - General 01/25/10
[2025-05-12 13:34] LABS: Iron 104 ug/dL (37-170)
[2025-05-12 13:44] LABS: Percent Iron Saturation 36 % (20-50)
[2025-05-12 14:10] LABS: Ferritin 29.30 ng/mL (11.1-264)
== END 2025-05-12 11:54 | disposition home or self-care (01) ==
PROVIDERS: PCP Nurse Practitioner Family; Visit Provider Nurse Practitioner Family
DX: D64.9 Anemia, unspecified (principal); R82.90 Unspecified abnormal findings in urine; E78.2 Mixed hyperlipidemia; G47.00 Insomnia, unspecified; E55.9 Vitamin D deficiency, unspecified; Z13.29 Encounter for screening for other suspected endocrine disorder
CPT/HCPCS: 36415; 80053; 80061; 81001; 82306; 82728; 83540; 83550; 84443; 85025